=== PATIENT | male | born 1960 | race Caucasian/White ===

== ENCOUNTER → 2023-09-11 15:54 | Outpatient (REF) | payer OTHER, SELFPAY | LOC: RCS 15:54 | PROVIDERS: ATTENDING PHYSICIAN Internal Medicine Cardiovascular Disease; FAMILY PHYSICIAN Emergency Medicine | DX: I25.5 Ischemic cardiomyopathy (principal) | CPT/HCPCS: 93306 ==

== ENCOUNTER 2024-02-18 20:36 | Emergency (ER) | payer OTHER, SELFPAY ==
[2024-02-18 20:41] VITALS: BP 141/79
[2024-02-18 21:50] LABS: % Basophils 0.4 % (0-2); % Eosinophils 0.3 % (0-6); % Immature Granulocytes 0.3 % (0-0.5); % Lymphocytes 12.2 % (20.5-51.1); % Monocytes 8.4 % (1.7-9.3); % Neutrophils 78.4 % (42.2-75.2); Absolute Monocytes 0.7 10^3/uL (0.1-0.6); Absolute Neutrophils 6.2 10^3/uL (1.4-6.5); Hematocrit 33.1 % (39.0-52.0); Hemoglobin 10.7 g/dL (13.0-18.0); Mean Corp Hgb Conc. 32.3 g/dL (33.0-37.0); Mean Corpuscular Volume 83.6 fL (80.0-94.0); Mean Platelet Volume 9.5 fL (7.4-10.4); Nucleated Red Blood Cells % 0 % (-); Platelet Count 392 10^3/uL (130-400); Red Blood Cell Count 3.96 10^6/uL (4.70-6.10); Red Cell Dist. Width 13.8 % (11.5-14.5); White Blood Cell Count 7.9 10^3/uL (4.8-10.8)
[2024-02-18 21:58] LABS: ALT (SGPT) 73 U/L (0-50); AST (SGOT) 97 U/L (17-59); Albumin 3.3 g/dl (3.5-5.0); Alkaline Phosphatase 96 U/L (38-126); Blood Urea Nitrogen 14 mg/dl (9-20); Calcium 8.4 mg/dl (8.4-10.2); Carbon Dioxide 27 mmol/L (22-30); Chloride 97 mmol/L (98-107); Glucose 110 mg/dl (70-99); Potassium 4.3 mmol/L (3.5-5.1); Sodium 131 mmol/L (135-145); Total Bilirubin 0.3 mg/dl (0.2-1.3); Total Protein 6.6 g/dl (6.3-8.2); eGFR > 60.00
[2024-02-18 23:02] VITALS: BP 111/63
[2024-02-18 23:11] VITALS: BP 111/63
--- NOTE | 2024-02-18 23:12 | ED.GENMED ---
History of Present Illness
<Kristin Rios EQUALIZER OPERATOR - Last Filed: 02/18/24 23:16>
General
Chief Complaint: Fall
Source: patient and family
Exam Limitations: none
Time Seen by Provider: 02/18/24 20:54
Nursing documentation reviewed up to this point in time: agreed with
History of Present Illness
History of Present Illness:
Patient to ED for eval of chest pain, mass seen on xray. Sister-in law reports he fell last week and injured right lateral chest. Family took him to [facility] and xray reveals 'mass' in right lung. Family was advised by provider of need to
come to ED for urgent CT. He is awake and alert. Denies any difficulty breathing. Pain to right lateral chest with movement.
Past History
<Kristin Rios EQUALIZER OPERATOR - Last Filed: 02/18/24 23:16>
Past History
ED Past Medical History: CAD, HTN and Hypercholesterolemia
ED Past Surgical History: None
Social History
Tobacco: Smoker
Personal: Single
Employment: Not employed
Phy Exam
<Kristin Rios EQUALIZER OPERATOR - Last Filed: 02/18/24 23:16>
General Physical Exam
General Presentation: well appearing and no apparent distress
General age: appears stated age
General Skin: warm and dry
General Habitus: normal
General Mental: alert
General Hydration: appears well hydrated
Cardiovascular Exam
Cardiovascular Exam: regular rate/rhythm and no edema
Pulmonary Exam
Pulmonary Exam: no respiratory distress, chest non tender and decreased breath sounds
Cough: non productive cough
Gastrointestinal Exam
Gastrointestinal Exam: normal bowel sounds and non tender
Musculoskeletal Exam
Musculoskeletal Exam: full ROM and neuro vasc intact
Skin Exam
Skin Exam: normal color, warm/dry and no rash
Psychiatric Exam
Psychiatric Exam: normal mood/affect
Course
<Kristin Rios, EQUALIZER OPERATOR - Last Filed: 02/18/24 23:16>
Orders/Labs/Results
Orders:
Orders
02/18/24 21:33
Complete Blood Count/With Diff Urgent
Comprehensive Metabolic Panel Urgent
02/18/24 23:20
Pantoprazole [Protonix IV] 40 mg IV NOW STA
02/19/24 00:15
CT Chest W/o Iv Contrast Urgent
Reason For Exam: Trauma, mass seen on xray
Abnormal Lab Results
02/18/24
21:33
RBC 3.96 L 10^6/uL
(4.70-6.10)
Hgb 10.7 L g/dL
(13.0-18.0)
Hct 33.1 L %
(39.0-52.0)
MCHC 32.3 L g/dL
(33.0-37.0)
Absolute Lymphs (auto) 1.0 L 10^3/uL
(1.2-3.4)
Absolute Monos (auto) 0.7 H 10^3/uL
(0.1-0.6)
Neutrophils % 78.4 H %
(42.2-75.2)
Lymphocytes % 12.2 L %
(20.5-51.1)
Sodium 131 L mmol/L
(135-145)
Chloride 97 L mmol/L
(98-107)
Glucose 110 H mg/dl
(70-99)
AST 97 H U/L
(17-59)
ALT 73 H U/L
(0-50)
Albumin 3.3 L g/dl
(3.5-5.0)
02/18/24 21:33
02/18/24 21:33
Vital Signs
Initial and Last Documented VS:
Initial Vital Signs
Temp Pulse Resp BP Pulse Ox
98.2 F 94 20 141/79 99
02/18/24 20:41 02/18/24 20:41 02/18/24 20:41 02/18/24 20:41 02/18/24 20:41
Last Documented Vital Signs
Temp Pulse Resp BP Pulse Ox
98.2 F 94 20 116/69 98
02/18/24 20:41 02/18/24 20:41 02/18/24 20:41 02/19/24 00:11 02/19/24 00:15
<Lanre Love, DO - Last Filed: 02/19/24 01:01>
Orders/Labs/Results
Orders:
Orders
02/18/24 21:33
Complete Blood Count/With Diff Urgent
Comprehensive Metabolic Panel Urgent
02/18/24 23:20
Pantoprazole [Protonix IV] 40 mg IV NOW STA
02/19/24 00:15
CT Chest W/o Iv Contrast Urgent
Reason For Exam: Trauma, mass seen on UC xray
Abnormal Lab Results
02/18/24
21:33
RBC 3.96 L 10^6/uL
(4.70-6.10)
Hgb 10.7 L g/dL
(13.0-18.0)
Hct 33.1 L %
(39.0-52.0)
MCHC 32.3 L g/dL
(33.0-37.0)
Absolute Lymphs (auto) 1.0 L 10^3/uL
(1.2-3.4)
Absolute Monos (auto) 0.7 H 10^3/uL
(0.1-0.6)
Neutrophils % 78.4 H %
(42.2-75.2)
Lymphocytes % 12.2 L %
(20.5-51.1)
Sodium 131 L mmol/L
(135-145)
Chloride 97 L mmol/L
(98-107)
Glucose 110 H mg/dl
(70-99)
AST 97 H U/L
(17-59)
ALT 73 H U/L
(0-50)
Albumin 3.3 L g/dl
(3.5-5.0)
02/18/24 21:33
02/18/24 21:33
Vital Signs
Initial and Last Documented VS:
Initial Vital Signs
Temp Pulse Resp BP Pulse Ox
98.2 F 94 20 141/79 99
02/18/24 20:41 02/18/24 20:41 02/18/24 20:41 02/18/24 20:41 02/18/24 20:41
Last Documented Vital Signs
Temp Pulse Resp BP Pulse Ox
98.2 F 94 20 116/69 98
02/18/24 20:41 02/18/24 20:41 02/18/24 20:41 02/19/24 00:11 02/19/24 00:15
<Lanre Love DO - Last Filed: 02/19/24 01:01>
*Critical Care Note
Total Time (30-74mins, 75-104mins- exclusive of procedures): Not Applicable
ED Attending Note
<Kristin Rios NP - Last Filed: 02/18/24 23:16>
-
Portions of this chart may have been created with voice recognition software.� Occasional wrong word or��sound alike� substitutions may have occurred due to the inherent limitations of voice recognition software.
<Lanre Love DO - Last Filed: 02/19/24 01:01>
ED Attending Note
Patient seen and examined by attending physician: Yes
I performed the substantive portion of visit, reviewed & personally made and approve the management plan that is documented in note by myself or HELGA.: Yes
ED Attending Note:
Seen with EQUALIZER OPERATOR examined independently 64-year-old male long-term smoker sent from an urgent care for a lung mass, CT confirms a lung mass oxygenating well reviewed with patient and multiple family members will need outpatient follow-up
Discharge Plan
Departure
Patient Disposition: Home (Routine Discharge)
Date of Disposition: 02/19/24
Time of Disposition: 00:58
Patient with high blood pressure during this ER visit?: No
Condition: Good
Discharge Problem:
Mass in chest
Referrals:
Carrie Newsome MD [Family Provider] - Next open appointment
Joe Camejo MD [Active] - Next open appointment
Marquise Salvador DO [Active] - Next open appointment
Activity Restrictions/Additional Instructions:
Your CAT scan today showed a mass in your lung
Call Dr. Salvador from [facility] tomorrow to arrange follow-up with him or one of his associates
Interventions
Interventions:
*Risk Screen - Suicide Last Done: 02/18/24 22:18
*General Assessment Last Done: 02/18/24 20:41
*Neglect/Abuse Screening Last Done: 02/18/24 22:18
ED- Fall Risk Assessment Last Done: 02/18/24 22:18
*ED COVID-19 Vaccine History Last Done: 02/18/24 22:18
ED-Musculoskeletal Assessment Last Done: 02/18/24 22:18
ED- Neurological Assessment Last Done: 02/18/24 22:18
ED-Skin Assessment Last Done: 02/18/24 22:18
Discharge Date and Time
Print Language: DANISH
[2024-02-18] MEDS: PROTONIX IV 40 MG IV (23:26)
[2024-02-19 00:11] VITALS: BP 116/69
[2024-02-19 01:00] VITALS: BP 119/73
== END 2024-02-19 01:16 | disposition home or self-care (01) ==
LOC: EMR 20:36
PROVIDERS: Nurse Practitioner; EMERGENCY PHYSICIAN Emergency Medicine; FAMILY PHYSICIAN Emergency Medicine
DX: R91.8 Other nonspecific abnormal finding of lung field (principal); R07.89 Other chest pain; E78.00 Pure hypercholesterolemia, unspecified; I10 Essential (primary) hypertension; I25.10 Atherosclerotic heart disease of native coronary artery without angina pectoris; F17.200 Nicotine dependence, unspecified, uncomplicated
CPT/HCPCS: 96374; 99284; 71250; 80053; 85025

== ENCOUNTER 2024-03-07 06:07 | Day surgery (SDC) | payer OTHER, SELFPAY ==
[2024-03-07] VITALS (8 sets, daily range): BP systolic 83–116; BP diastolic 48–68; BMI 18.5
== END 2024-03-07 16:26 | disposition home or self-care (01) ==
LOC: SDS 06:07
PROVIDERS: ATTENDING PHYSICIAN Internal Medicine Critical Care Medicine
DX: C34.11 Malignant neoplasm of upper lobe, right bronchus or lung (principal); C77.1 Secondary and unspecified malignant neoplasm of intrathoracic lymph nodes; J98.4 Other disorders of lung; R93.89 Abnormal findings on diagnostic imaging of other specified body structures; J44.9 Chronic obstructive pulmonary disease, unspecified; J98.11 Atelectasis; R91.8 Other nonspecific abnormal finding of lung field
CPT/HCPCS: 31623; 31628; 31629; 31653; 31624; 31625; 31654; 88172; 88173; 88305; 71045; 87015; 87070; 87102; 87116; 87205; 88112; 88333; 88341; 88342

== ENCOUNTER 2024-03-17 15:39 | Emergency (ER) | payer OTHER, SELFPAY ==
[2024-03-17 15:59] VITALS: BP 139/87
--- NOTE | 2024-03-17 15:59 | ED.GENMED ---
ED Provider Triage
<Henrry Barajas Jr., PA-C - Last Filed: 03/17/24 15:59>
-
Patient seen by provider in Triage?: Seen in Triage
Attestation: A medical screening examination has been initiated by a qualified medical provider. Based on the assessment performed at this time, it has been determined that an emergent medical condition may exist and the patient has been informed
that further medical evaluation and possible additional diagnostic testing may be needed.
HPI: 64-year-old male presenting to the emergency department for labs. Recently diagnosed with lung cancer through pulmonary here. They are requesting outpatient labs they were having difficulty getting labs done as an outpatient today they were
told to go to the ER for the labs. The labs that were requested specifically were ordered here.
GENERAL: Alert , in no apparent distress
EYE: No visual abnormalities.
NECK: Trachea midline
ENT: No visible abnormalities.
LUNGS: No acute respiratory distress
NEUROLOGICAL: Alert and oriented
SKIN: Skin intact. No visible changes.
MUSCULOSKELETAL: Moving extremities normally
PSYCH: Normal and appropriate interaction.
This is a medical evaluation conducted in person to initiate diagnostic evaluation and provide initial therapeutics. Please see further documentation by the treating clinician.
History of Present Illness
<Henrry Barajas Jr., PA-C - Last Filed: 03/17/24 15:59>
General
Chief Complaint: Abnormal Lab Value
Time Seen by Provider: 03/17/24 16:14
<BETHANY Salas - Last Filed: 03/17/24 19:47>
General
Source: patient
Exam Limitations: none
Nursing documentation reviewed up to this point in time: agreed with
History of Present Illness
History of Present Illness:
Patient is a 64-year-old male here for outpatient labs. Patient is here with brother and [id number]. Patient has a recent diagnosis of lung cancer and has seen . He is scheduled for a PET scan March 24 and is seeing pulmonary again
this Sunday. Patient came to the ER because his insurance would not cover blood work done at [facility] and [facility] was closed. Family reports patient has been slightly tired which is why pulmonary ordered blood work. Patient has no
physical complaints here. Denies any shortness of breath or chest pain. He feels well to go home.
Past History
<Henrry Barajas Jr., PA-C - Last Filed: 03/17/24 15:59>
Past History
ED Past Medical History: CAD, HTN and Hypercholesterolemia
ED Past Surgical History: None
Social History
Tobacco: Smoker
Personal: Single
Employment: Not employed
Review of Systems
<BETHANY Salas - Last Filed: 03/17/24 19:47>
Review of Systems
Allergies reviewed?: Yes
All Other Systems: ROS reviewed and negative except as documented in HPI and ROS
Constitutional: Denies fever
Respiratory: Reports no symptoms; Denies trouble breathing
Cardiac: Reports no symptoms
ABD/GI: Reports no symptoms
: Reports no symptoms
Musculoskeletal: Reports no symptoms
Skin: Reports no symptoms
Neurological: Reports no symptoms
Psychiatric: Reports no symptoms
Phy Exam
<BETHANY Salas - Last Filed: 03/17/24 19:47>
General Physical Exam
General Presentation: no apparent distress
General age: appears stated age
General Skin: warm and dry
General Habitus: elderly
General Mental: alert
General Hydration: appears well hydrated
Cardiovascular Exam
Cardiovascular Exam: regular rate/rhythm, no murmur and normal peripheral pulses
Pulmonary Exam
Pulmonary Exam: lungs clear and no respiratory distress
Neurological Exam
Neurological Exam: alert
Musculoskeletal Exam
Musculoskeletal Exam: full ROM
Skin Exam
Skin Exam: normal color and warm/dry
Psychiatric Exam
Psychiatric Exam: normal mood/affect
Course
<Henrry Barajas Jr., PA-C - Last Filed: 03/17/24 15:59>
Orders/Labs/Results
Orders:
Orders
03/17/24 16:18
B12 [Vitamin B12] Urgent
CBC/With Diff [Complete Blood Count/With Diff] Urgent
CMP [Comprehensive Metabolic Panel] Urgent
Ferritin Urgent
Iron Urgent
TSH Reflex To Free T4 Urgent
Total Iron Binding Urgent
Abnormal Lab Results
03/17/24
16:18
RBC 4.38 L 10^6/uL
(4.70-6.10)
Hgb 11.7 L g/dL
(13.0-18.0)
Hct 36.6 L %
(39.0-52.0)
MCH 26.7 L pg
(27.0-31.0)
MCHC 32.0 L g/dL
(33.0-37.0)
RDW 15.4 H %
(11.5-14.5)
Plt Count 507 H 10^3/uL
(130-400)
Abs Immat Gran (auto) 0.1 H 10^3/uL
(0-0.05)
Absolute Neuts (auto) 8.5 H 10^3/uL
(1.4-6.5)
Absolute Lymphs (auto) 1.0 L 10^3/uL
(1.2-3.4)
Absolute Monos (auto) 0.7 H 10^3/uL
(0.1-0.6)
Neutrophils % 82.5 H %
(42.2-75.2)
Lymphocytes % 9.4 L %
(20.5-51.1)
Sodium 134 L mmol/L
(135-145)
Creatinine 0.6 L mg/dL
(0.7-1.3)
Iron 42 L ug/dl
(49-181)
% Saturation 14 L %
(20-50)
Ferritin 493.0 H ng/ml
(17.9-464.0)
03/17/24 16:18
03/17/24 16:18
Vital Signs
Initial and Last Documented VS:
Initial Vital Signs
Temp Pulse Resp BP Pulse Ox
97.8 F 102 20 139/87 98
03/17/24 15:59 03/17/24 15:59 03/17/24 15:59 03/17/24 15:59 03/17/24 15:59
Last Documented Vital Signs
Temp Pulse Resp BP Pulse Ox
97.8 F 102 20 139/87 98
03/17/24 15:59 03/17/24 15:59 03/17/24 15:59 03/17/24 15:59 03/17/24 15:59
<BETHANY Salas - Last Filed: 03/17/24 19:47>
Orders/Labs/Results
Orders:
Orders
03/17/24 16:18
B12 [Vitamin B12] Urgent
CBC/With Diff [Complete Blood Count/With Diff] Urgent
CMP [Comprehensive Metabolic Panel] Urgent
Ferritin Urgent
Iron Urgent
TSH Reflex To Free T4 Urgent
Total Iron Binding Urgent
Abnormal Lab Results
03/17/24
16:18
RBC 4.38 L 10^6/uL
(4.70-6.10)
Hgb 11.7 L g/dL
(13.0-18.0)
Hct 36.6 L %
(39.0-52.0)
MCH 26.7 L pg
(27.0-31.0)
MCHC 32.0 L g/dL
(33.0-37.0)
RDW 15.4 H %
(11.5-14.5)
Plt Count 507 H 10^3/uL
(130-400)
Abs Immat Gran (auto) 0.1 H 10^3/uL
(0-0.05)
Absolute Neuts (auto) 8.5 H 10^3/uL
(1.4-6.5)
Absolute Lymphs (auto) 1.0 L 10^3/uL
(1.2-3.4)
Absolute Monos (auto) 0.7 H 10^3/uL
(0.1-0.6)
Neutrophils % 82.5 H %
(42.2-75.2)
Lymphocytes % 9.4 L %
(20.5-51.1)
Sodium 134 L mmol/L
(135-145)
Creatinine 0.6 L mg/dL
(0.7-1.3)
Iron 42 L ug/dl
(49-181)
% Saturation 14 L %
(20-50)
Ferritin 493.0 H ng/ml
(17.9-464.0)
03/17/24 16:18
03/17/24 16:18
Vital Signs
Initial and Last Documented VS:
Initial Vital Signs
Temp Pulse Resp BP Pulse Ox
97.8 F 102 20 139/87 98
03/17/24 15:59 03/17/24 15:59 03/17/24 15:59 03/17/24 15:59 03/17/24 15:59
Last Documented Vital Signs
Temp Pulse Resp BP Pulse Ox
97.8 F 102 20 139/87 98
03/17/24 15:59 03/17/24 15:59 03/17/24 15:59 03/17/24 15:59 03/17/24 15:59
<BETHANY Salas - Last Filed: 03/17/24 19:47>
MDM/Problems Addressed
MDM/Problems Addressed:
Patient is stable for discharge home. A 64-year-old male who presented to the ER for blood work. He is followed by pulmonary for lung cancer and is scheduled to see them Sunday he is also a patient of [facility] here at [place]. He
is scheduled for his PET scan March 24 and scheduled to see this Sunday. He has no physical complaints. Blood work reviewed shows a hemoglobin which is stable 11.7 it was 10.9 on 02/17. His neutrophils have been slightly elevated and
they are slightly elevated here but unchanged. He denies any fevers his white count is normal at 10.2 his renal function is normal with no physical complaints stable for discharge home with outpatient follow-up with pulmonary and oncology.
I did notify his practice specialist about his labs.
<BETHANY Salas - Last Filed: 03/17/24 19:47>
*Pulse Oximetry
Patient hypoxic: no
*Critical Care Note
Total Time (30-74mins, 75-104mins- exclusive of procedures): Not Applicable
ED Attending Note
<Henrry Barajas Jr., PA-C - Last Filed: 03/17/24 15:59>
-
Portions of this chart may have been created with voice recognition software.� Occasional wrong word or��sound alike� substitutions may have occurred due to the inherent limitations of voice recognition software.
Discharge Plan
Departure
Patient Disposition: Home (Routine Discharge)
Date of Disposition: 03/17/24
Time of Disposition: 17:25
Patient with high blood pressure during this ER visit?: Yes
Discharge Problem:
encounter for blood work
Instructions: BLOOD PRESSURE
Prescriptions:
No Action
amitriptyline 50 mg Tablet
50 mg PO HS
atorvastatin
1 tab PO DAILY
gabapentin
1 tab PO BID
metoprolol succinate
1 tab PO DAILY
Low-Dose Aspirin 81 mg Tablet
81 mg PO DAILY
ibuprofen 800 mg Tablet
800 mg PO BID
Referrals:
Shahla Fontana MD [Active] -
Julianne Benjamin DO [Active] -
Activity Restrictions/Additional Instructions:
As discussed your labs were reviewed and there were no acute concerning abnormalities. Please continue to follow-up with pulmonary as well as oncology as scheduled. Return if any worsening of symptoms.
Interventions
Interventions:
*Risk Screen - Suicide Last Done: 03/17/24 17:47
*Neglect/Abuse Screening Last Done: 03/17/24 17:47
*ED COVID-19 Vaccine History Last Done: 03/17/24 15:59
*Nursing Disposition Last Done: 03/17/24 17:47
Discharge Date and Time
Discharge Date/Time: 03/17/24 17:47
Print Language: SLOVAK
[2024-03-17 16:38] LABS: % Basophils 0.3 % (0-2); % Eosinophils 0.7 % (0-6); % Immature Granulocytes 0.5 % (0-0.5); % Lymphocytes 9.4 % (20.5-51.1); % Monocytes 6.6 % (1.7-9.3); % Neutrophils 82.5 % (42.2-75.2); Absolute Eosinophils 0.1 10^3/uL (0-0.7); Absolute Immature Granulocytes 0.1 10^3/uL (0-0.05); Absolute Monocytes 0.7 10^3/uL (0.1-0.6); Absolute Neutrophils 8.5 10^3/uL (1.4-6.5); Hematocrit 36.6 % (39.0-52.0); Hemoglobin 11.7 g/dL (13.0-18.0); Mean Corpuscular Hgb 26.7 pg (27.0-31.0); Mean Corpuscular Volume 83.6 fL (80.0-94.0); Mean Platelet Volume 9.3 fL (7.4-10.4); Nucleated Red Blood Cells % 0 % (-); Platelet Count 507 10^3/uL (130-400); Red Blood Cell Count 4.38 10^6/uL (4.70-6.10); Red Cell Dist. Width 15.4 % (11.5-14.5); White Blood Cell Count 10.2 10^3/uL (4.8-10.8)
[2024-03-17 16:43] LABS: ALT (SGPT) 20 U/L (0-50); AST (SGOT) 29 U/L (17-59); Albumin 3.9 g/dl (3.5-5.0); Alkaline Phosphatase 113 U/L (38-126); Blood Urea Nitrogen 17 mg/dl (9-20); Carbon Dioxide 24 mmol/L (22-30); Chloride 99 mmol/L (98-107); Glucose 96 mg/dl (70-99); Iron 42 ug/dl (49-181); Potassium 4.9 mmol/L (3.5-5.1); Sodium 134 mmol/L (135-145); Total Bilirubin 0.5 mg/dl (0.2-1.3); Total Protein 7.4 g/dl (6.3-8.2); eGFR > 60.00
[2024-03-17 16:52] LABS: Percent Saturation 14 % (20-50); Total Iron Binding Capacity 291 ug/dl (261-462)
[2024-03-17 17:13] LABS: TSH Reflex To Free T4 2.24 uIU/ml (0.47-4.68)
[2024-03-17 17:32] LABS: Vitamin B12 399 pg/ml (239-931)
== END 2024-03-17 17:47 | disposition home or self-care (01) ==
LOC: EMR 15:39
PROVIDERS: Physician Assistant; EMERGENCY PHYSICIAN Emergency Medicine; FAMILY PHYSICIAN Emergency Medicine
DX: Z04.89 Encounter for examination and observation for other specified reasons (principal); C34.90 Malignant neoplasm of unspecified part of unspecified bronchus or lung; I25.10 Atherosclerotic heart disease of native coronary artery without angina pectoris; I10 Essential (primary) hypertension; E78.00 Pure hypercholesterolemia, unspecified; F17.200 Nicotine dependence, unspecified, uncomplicated
CPT/HCPCS: 99283; 80053; 82607; 82728; 83540; 83550; 84443; 85025

== ENCOUNTER → 2024-03-24 10:52 | Outpatient (REF) | payer OTHER, SELFPAY | LOC: PET 10:52 | PROVIDERS: ATTENDING PHYSICIAN Internal Medicine Hematology & Oncology | DX: C34.11 Malignant neoplasm of upper lobe, right bronchus or lung (principal) | CPT/HCPCS: 78815; A9552 ==

== ENCOUNTER 2024-03-26 21:30 | Emergency (ER) | payer OTHER, SELFPAY ==
[2024-03-26 21:30] VITALS: BMI 22.1
[2024-03-26 21:31] VITALS: BP 116/67
[2024-03-26 21:50] LABS: % Basophils 0.2 % (0-2); % Immature Granulocytes 0.6 % (0-0.5); % Lymphocytes 5.3 % (20.5-51.1); % Monocytes 8.2 % (1.7-9.3); % Neutrophils 85.7 % (42.2-75.2); Absolute Immature Granulocytes 0.1 10^3/uL (0-0.05); Absolute Lymphocytes 0.7 10^3/uL (1.2-3.4); Absolute Neutrophils 10.8 10^3/uL (1.4-6.5); Hematocrit 34.3 % (39.0-52.0); Hemoglobin 11.3 g/dL (13.0-18.0); Mean Corp Hgb Conc. 32.9 g/dL (33.0-37.0); Mean Corpuscular Hgb 26.5 pg (27.0-31.0); Mean Corpuscular Volume 80.5 fL (80.0-94.0); Mean Platelet Volume 8.8 fL (7.4-10.4); Nucleated Red Blood Cells % 0 % (-); Platelet Count 495 10^3/uL (130-400); Red Blood Cell Count 4.26 10^6/uL (4.70-6.10); White Blood Cell Count 12.5 10^3/uL (4.8-10.8)
[2024-03-26 22:04] LABS: ALT (SGPT) 29 U/L (0-50); AST (SGOT) 34 U/L (17-59); Albumin 3.6 g/dl (3.5-5.0); Alkaline Phosphatase 100 U/L (38-126); Blood Urea Nitrogen 12 mg/dl (9-20); Calcium 8.5 mg/dl (8.4-10.2); Carbon Dioxide 25 mmol/L (22-30); Chloride 98 mmol/L (98-107); Glucose 132 mg/dl (70-99); Potassium 4.4 mmol/L (3.5-5.1); Sodium 133 mmol/L (135-145); Total Bilirubin 0.8 mg/dl (0.2-1.3); Total Protein 7.2 g/dl (6.3-8.2); eGFR > 60.00
[2024-03-26 22:44] VITALS: BP 111/66
[2024-03-26 23:00] VITALS: BP 108/64
--- NOTE | 2024-03-26 23:44 | ED.GENMED ---
History of Present Illness
General
Chief Complaint: Abdominal Symptoms
Source: patient and family ([id number])
Exam Limitations: none
Time Seen by Provider: 03/26/24 22:52
History of Present Illness
History of Present Illness:
This is a 64 year old male that is brought in by family. States hat he just was not feeling well today. States that he is nauseated. Hienne-yc-mrg states that he was not good all day. States that he went to bed at 1opm last night and then did not
get up to 11am today. State that he was only up an hour and went to sleep in the chair all day. States that States that he was just diagnosed with Lung cancer about 2 weeks ago. Patient had a PET scan of the skull to the mid thigh on , States
that tomorrow he is going for an MRI of the brain and at 3:30 appointment with the Oncologist to make a plan. Patient state that he felt nauseated and does have some urinary burning. Denies any fever, chills, chest pain, SOB, abd pain, vomiting,
diarrhea, headache, dizziness.
Past History
Past History
ED Past Medical History: CAD, Cancer (Lung CA), COPD, HTN, Hypercholesterolemia, [place] (X 2) and Other (Back pain, 2 herniated disc, Anemia, )
ED Past Surgical History: Cardiac (Cardiac stent)
Social History
Tobacco: Former smoker
Drug: None
Personal: Single
Living: alone
Employment: Not employed
Review of Systems
Review of Systems
All Other Systems: ROS reviewed and negative except as documented in HPI and ROS
Constitutional: Reports chills; Denies fever
EENT: Reports no symptoms
Respiratory: Reports no symptoms; Denies cough or trouble breathing
Cardiac: Reports no symptoms; Denies chest pain
ABD/GI: Reports nausea; Denies abdominal pain, vomiting or diarrhea
: Reports dysuria, frequency and urgency
Musculoskeletal: Reports no symptoms
Skin: Reports no symptoms
Neurological: Reports no symptoms; Denies dizzy or headache
Psychiatric: Reports no symptoms
Phy Exam
General Physical Exam
General Presentation: no apparent distress
General age: appears stated age
General Skin: other (Clammy)
General Habitus: normal
General Mental: usual mental status
General Hydration: appears well hydrated
ENT Exam
ENT Exam: TM's normal, pharynx normal and neck supple
Eye Exam
Eye Exam: EOMI
Cardiovascular Exam
Cardiovascular Exam: regular rate/rhythm, no edema, no murmur and normal peripheral pulses
Pulmonary Exam
Pulmonary Exam: lungs clear, no respiratory distress, no rales, chest non tender, no crackles, no rhonchi, no wheezing and no cough
Gastrointestinal Exam
Gastrointestinal Exam: normal bowel sounds, non tender, soft, no organomegaly, no pulsatile mass and non distended
Musculoskeletal Exam
Musculoskeletal Exam: full ROM and no edema
Skin Exam
Skin Exam: normal color, warm/dry, no rash and no petechia
Course
Orders/Labs/Results
Orders:
Orders
03/26/24 21:40
Complete Blood Count/With Diff Urgent
Comprehensive Metabolic Panel Urgent
03/26/24 23:42
0.9% Sodium Chloride 1000 ml [Nss] 1,000 ml IV BOLUS
Ondansetron Injectable [Zofran] 4 mg IV NOW STA
03/26/24 23:45
COVID-19 Antigen Urgent
Source: Nasal Swab
Urinalysis Reflex To Culture Urgent
Date Specimen was Collected: 03/27/24
Time Specimen was Collected: 00:45
03/26/24 23:48
Troponin I Urgent
03/26/24 23:53
Electrocardiogram (*1) Urgent
Reason for Study: Fatigue / Weakness
EKG- Treatment ONCE
Abnormal Lab Results
03/26/24 03/27/24
21:40 00:52
WBC 12.5 H 10^3/uL
(4.8-10.8)
RBC 4.26 L 10^6/uL
(4.70-6.10)
Hgb 11.3 L g/dL
(13.0-18.0)
Hct 34.3 L %
(39.0-52.0)
MCH 26.5 L pg
(27.0-31.0)
MCHC 32.9 L g/dL
(33.0-37.0)
RDW 15.0 H %
(11.5-14.5)
Plt Count 495 H 10^3/uL
(130-400)
Abs Immat Gran (auto) 0.1 H 10^3/uL
(0-0.05)
Absolute Neuts (auto) 10.8 H 10^3/uL
(1.4-6.5)
Absolute Lymphs (auto) 0.7 L 10^3/uL
(1.2-3.4)
Absolute Monos (auto) 1.0 H 10^3/uL
(0.1-0.6)
Immature Gran % 0.6 H %
(0-0.5)
Neutrophils % 85.7 H %
(42.2-75.2)
Lymphocytes % 5.3 L %
(20.5-51.1)
Sodium 133 L mmol/L
(135-145)
Glucose 132 H mg/dl
(70-99)
Urine Ketones Trace A
(Negative)
Urine Urobilinogen 2+ A
(Neg - 1+)
03/26/24 21:40
03/26/24 21:40
Leukocytosis, H/H slghtly low, Thrombocytosis, Sodium slightly low. Hyperglycemia.
Vital Signs
Initial and Last Documented VS:
Initial Vital Signs
Temp Pulse Resp BP Pulse Ox
98.0 F 103 18 116/67 97
03/26/24 21:31 03/26/24 21:31 03/26/24 21:31 03/26/24 21:31 03/26/24 21:31
Last Documented Vital Signs
Temp Pulse Resp BP Pulse Ox
98.0 F 103 18 108/64 95
03/26/24 21:31 03/26/24 21:31 03/26/24 21:31 03/26/24 23:00 03/27/24 00:15
MDM/Problems Addressed
Differential Diagnosis Includes:
UTI, Viral syndrome
MDM/Problems Addressed:
This is a 64 year old male that is brought in by family c/o just not feeling well. States that he has slept a lot all day and was nauseated.
Will check abs, COVID, Give IV fluids and Zofran. Will also get urine
Back into see patient and family. Patient states that he is feeling a little better. Reviewed all findings. Will discharge patient home with prescription for Zofran. Patient to return with any concerns.
Chronic conditions affecting care: Cancer
Acute Exacerbation and/or Progression of Chronic Illness:
NA
*Pulse Oximetry
Patient hypoxic: no
*EKG
Interpreted by ED Provider?: Yes
Heart Rate: 88
Rate: normal
Rhythm: sinus
Clark: left axis deviation
Interval: normal interval
QRS Pattern: normal QRS
Ischemia: T-wave inversion (II, III, aVF, V3, V4, V5, V6)
*Customer Agent Interpretation
Rate: Customer Agent- N/A
*Critical Care Note
Total Time (30-74mins, 75-104mins- exclusive of procedures): Not Applicable
ED Attending Note
-
Portions of this chart may have been created with voice recognition software.� Occasional wrong word or��sound alike� substitutions may have occurred due to the inherent limitations of voice recognition software.
Discharge Plan
Departure
Patient Disposition: Home (Routine Discharge)
Date of Disposition: 03/27/24
Time of Disposition: 01:53
Patient with high blood pressure during this ER visit?: No
Condition: Good
Covid-19: Negative COVID-19
Discharge Problem:
Nausea alone
Instructions: Nausea and Vomiting, Adult (DC)
Prescriptions:
New
ondansetron 4 mg tablet,disintegrating
4 mg PO Q8H PRN (Reason: nausea and vomiting) Qty: 10 0RF
No Action
amitriptyline 50 mg Tablet
50 mg PO HS
atorvastatin
1 tab PO DAILY
gabapentin
1 tab PO BID
metoprolol succinate
1 tab PO DAILY
Low-Dose Aspirin 81 mg Tablet
81 mg PO DAILY
ibuprofen 800 mg Tablet
800 mg PO BID
Referrals:
Carrie Newsome MD [Family Provider] - Follow up in 2-3 days
Activity Restrictions/Additional Instructions:
As discussed, your blood work shows that your white blood cell count is slightly elevated. You are negative for COVID and your Urine is negative for infection. Please follow up with the Oncologist and your other testing as planed. Please increase
your water intake to 8-8oz glasses daily. A prescription for Zofran has been sent to your Pharmacy. IF YOU HAVE ANY OTHER CONCERNS PLEASE RETURN TO THE EMERGENCY ROOM
Interventions
Interventions:
*General Assessment Last Done: 03/26/24 21:31
*Neglect/Abuse Screening Last Done: 03/26/24 21:31
*ED COVID-19 Vaccine History Last Done: 03/26/24 21:31
DJ-Cflwet-Zkysggsiph Assessment Last Done: 03/26/24 23:11
Discharge Date and Time
Print Language: WELSH
[2024-03-27] MEDS: NSS 1000 IV (00:04)
[2024-03-27] MEDS: ZOFRAN 4 MG IV (00:11)
[2024-03-27 00:45] LABS: COVID-19 Antigen Negative (Negative)
[2024-03-27 00:49] LABS: Troponin I 0.014 ng/ml
[2024-03-27 01:00] VITALS: BP 110/69
[2024-03-27 01:29] LABS: Urine Albumin Trace (Neg - Trace); Urine Bilirubin Negative (Negative); Urine Character Clear (Clear); Urine Glucose Negative (Negative); Urine Ketone Trace (Negative); Urine Leukocyte Negative (Negative); Urine Nitrite Negative (Negative); Urine Occult Blood Negative (Negative); Urine Specific Gravity 1.015 (<1.030); Urine Urobilinogen 2+ (Neg - 1+)
[2024-03-27 01:30] LABS: Urine Color Amber
[2024-03-27 02:00] VITALS: BP 114/69
== END 2024-03-27 02:40 | disposition home or self-care (01) ==
LOC: EMR 21:30
PROVIDERS: Clinical Nurse Specialist Family Health; Emergency Medicine; EMERGENCY PHYSICIAN Emergency Medicine; FAMILY PHYSICIAN Emergency Medicine
DX: R11.0 Nausea (principal); C34.90 Malignant neoplasm of unspecified part of unspecified bronchus or lung; I25.10 Atherosclerotic heart disease of native coronary artery without angina pectoris; J44.9 Chronic obstructive pulmonary disease, unspecified; I10 Essential (primary) hypertension; E78.00 Pure hypercholesterolemia, unspecified; I25.2 Old myocardial infarction; Z87.891 Personal history of nicotine dependence; Z95.5 Presence of coronary angioplasty implant and graft
CPT/HCPCS: 99284; 96374; 96361; 80053; 81003; 84484; 85025; 87811; 93005

== ENCOUNTER → 2024-03-27 07:24 | Outpatient (REF) | payer OTHER, SELFPAY | LOC: MRI 3T 07:24 | PROVIDERS: ATTENDING PHYSICIAN Internal Medicine Critical Care Medicine; FAMILY PHYSICIAN Emergency Medicine | DX: C34.90 Malignant neoplasm of unspecified part of unspecified bronchus or lung (principal); R59.0 Localized enlarged lymph nodes | CPT/HCPCS: 70553; A9575 ==

== ENCOUNTER 2024-04-10 22:23 | Inpatient (IN) | payer OTHER, SELFPAY ==
[2024-04-10 17:03] VITALS: BMI 19.0
[2024-04-10 17:08] VITALS: BP 129/73
--- NOTE | 2024-04-10 17:13 | ED.GENMED ---
ED Provider Triage
<Cherry Callaway PA-C - Last Filed: 04/10/24 17:14>
-
Patient seen by provider in Triage?: Seen in Triage
Attestation: A medical screening examination has been initiated by a qualified medical provider. Based on the assessment performed at this time, it has been determined that an emergent medical condition may exist and the patient has been informed
that further medical evaluation and possible additional diagnostic testing may be needed.
HPI: 64yoM here with SOB and cough. Started with a rattling in his chest 2 days ago. Coughing up green mucous. Hx of recently diagnosed lung cancer, scheduled to start chemo/radiation next month. Sent in by pulmonology office.
GENERAL: Alert , in no apparent distress
EYE: No visual abnormalities.
NECK: Trachea midline
ENT: No visible abnormalities.
LUNGS: No acute respiratory distress
NEUROLOGICAL: Alert and oriented
SKIN: Skin intact. No visible changes.
MUSCULOSKELETAL: Moving extremities normally
PSYCH: Normal and appropriate interaction.
This is a medical evaluation conducted in person to initiate diagnostic evaluation and provide initial therapeutics. Please see further documentation by the treating clinician.
Cardiac labs, viral testing, EKG, and CXR ordered.
History of Present Illness
<Cherry Callaway PA-C - Last Filed: 04/10/24 17:14>
General
Chief Complaint: Breathing Problem
Time Seen by Provider: 04/10/24 19:55
<Kristin Rios NP - Last Filed: 04/10/24 23:01>
General
Source: patient and family
Exam Limitations: none
Nursing documentation reviewed up to this point in time: agreed with
History of Present Illness
History of Present Illness:
Patient to ED with complaint of increasing weakness, increasing SOB, increasing cough. + fever. Symptoms started 2 days ago.New diagnosis of lung CA. He has not started treatment yet. Today he was evaluated by pulmonology. Given neb treatemtn in
office with some improvement but SOB quickly returned. He felt that he needed to come to ED. Lives alone. Influenza A pos in triage today.
Past History
<Cherry Callaway PA-C - Last Filed: 04/10/24 17:14>
Past History
ED Past Medical History: CAD, Cancer (Lung CA), COPD, HTN, Hypercholesterolemia, ME (X 2) and Other (Back pain, 2 herniated disc, Anemia, )
ED Past Surgical History: Cardiac (Cardiac stent)
Social History
Tobacco: Former smoker
Drug: None
Personal: Single
Living: alone
Employment: Not employed
Review of Systems
<Kristin Rios NP - Last Filed: 04/10/24 23:01>
Review of Systems
Allergies reviewed?: Yes
All Other Systems: ROS reviewed and negative except as documented in HPI and ROS
Constitutional: Reports fever and fatigue
EENT: Reports no symptoms
Respiratory: Reports cough and trouble breathing
Cardiac: Reports no symptoms
ABD/GI: Reports nausea and anorexia
: Reports no symptoms
Musculoskeletal: Reports no symptoms
Skin: Reports no symptoms
Neurological: Reports weakness
Psychiatric: Reports no symptoms
Phy Exam
<Kristin Rios WALKING DRAGLINE OILER - Last Filed: 04/10/24 23:01>
General Physical Exam
General Presentation: mild distress
General age: appears older than age
General Skin: warm and dry
General Habitus: cachetic and frail
General Mental: alert
General Hydration: dry mucous membranes
Cardiovascular Exam
Cardiovascular Exam: regular rate/rhythm and no edema
Pulmonary Exam
Pulmonary Exam: decreased breath sounds
Cough: coarse cough and productive cough
Breath Sounds: Wheeze: generalized (expiratory)
Musculoskeletal Exam
Musculoskeletal Exam: full ROM and neuro vasc intact
Skin Exam
Skin Exam: normal color, warm/dry and no rash
Psychiatric Exam
Psychiatric Exam: normal mood/affect
Scores
<Kristin Rios NP - Last Filed: 04/10/24 23:01>
Heart Failure Risk
Heart Failure Risk Score: Not Applicable
Sepsis
<Kristin Rios NP - Last Filed: 04/10/24 23:01>
Sepsis Screening
Sepsis Assessment: Sepsis Ruled Out
Sepsis Screen
Sepsis Screen: Sepsis Ruled Out
Date: 04/10/24
Time: 23:01
Course
<Cherry Callaway PA-C - Last Filed: 04/10/24 17:14>
Orders/Labs/Results
Orders:
Orders
04/10/24 17:12
Electrocardiogram (*1) Urgent
Reason for Study: Shortness of Breath
EKG- Treatment ONCE
CR Chest - 2 Views Urgent
Comment:
Reason For Exam: SOB
04/10/24 17:36
COVID-19 Antigen Urgent
Source: Nasal Swab
Complete Blood Count/With Diff Urgent
Comprehensive Metabolic Panel Urgent
Ferritin Urgent
Comment: ADD ON
Folate Urgent
Comment: ADD ON
Iron Urgent
Comment: ADD ON
Total Iron Binding Urgent
Comment: ADD ON
Troponin I Urgent
Vitamin B12 Urgent
Comment: ADD ON
Influenza A+B Rapid Molecular Urgent
MARTITA Source: Nasal Swab
Specimen Description:
04/10/24 19:59
Acetaminophen [Tylenol] 650 mg PO NOW STA
04/10/24 20:06
0.9% Sodium Chloride 1000 ml [Nss] 1,000 ml IV BOLUS
Oseltamivir Phosphate [Tamiflu] 75 mg PO NOW STA
04/10/24 20:12
Dexamethasone Sod Phosphate [Decadron] 10 mg IV NOW STA
Levalbuterol [Xopenex 1.25 mg Inhalant Solution] 1.25 mg INH R NOW STA
04/10/24 21:22
Add On- LAB Stat
Tests Added?: iron, B12, ferritin, Foalte, TIBC
04/10/24 21:31
Admit/Transfer Patient As Directed
Co-Sign Provider:
Level of Care: Inpatient admission
Assign to:: Medical/Surgical
Physician / Group: jonh
Diagnosis: Influenza A
Reason for Hospitalization: influenza A
Expected length of stay greater than two midnights?: Yes
ELOS- Estimated Length of Stay in days: 3
I certify the patient meets the requirements for IP care: Yes
PRN Pain Medication Management As Directed
May give lesser potent ordered pain med per pt: Yes
preference::
Protocol:: Medication orders for pain may be administered in a
manner that supports deferring to patient preference
when the pt is:
- Requesting an ordered lesser potent pain medication.
Least to most potent pain medications are defined
as: acetaminophen < NSAID < tramadol < opioids
(morphine, oxycodone, hydromorphone).
- Requesting a lesser dose of the same medication IF
ORDERED.
- Requesting a less intrusive route of administration
if both routes are prescribed by the provider (PO <
IV).
04/10/24 21:32
Code Status As Directed
Resuscitation Status: Full Code
04/10/24 21:57
Procalcitonin Stat
PCT Algorithmm Indication: Respiratory
Abnormal Lab Results
04/10/24
17:36
RBC 4.12 L 10^6/uL
(4.70-6.10)
Hgb 10.5 L g/dL
(13.0-18.0)
Hct 32.3 L %
(39.0-52.0)
MCV 78.4 L fL
(80.0-94.0)
MCH 25.5 L pg
(27.0-31.0)
MCHC 32.5 L g/dL
(33.0-37.0)
RDW 15.7 H %
(11.5-14.5)
Plt Count 560 H 10^3/uL
(130-400)
Absolute Neuts (auto) 8.5 H 10^3/uL
(1.4-6.5)
Absolute Lymphs (auto) 0.4 L 10^3/uL
(1.2-3.4)
Absolute Monos (auto) 0.7 H 10^3/uL
(0.1-0.6)
Neutrophils % 87.4 H %
(42.2-75.2)
Lymphocytes % 4.5 L %
(20.5-51.1)
Sodium 131 L mmol/L
(135-145)
Chloride 96 L mmol/L
(98-107)
Glucose 116 H mg/dl
(70-99)
Iron 32 L ug/dl
(49-181)
TIBC 237 L ug/dl
(261-462)
% Saturation 13 L %
(20-50)
Ferritin 898.0 H ng/ml
(17.9-464.0)
ALT 53 H U/L
(0-50)
04/10/24 17:36
04/10/24 17:36
Vital Signs
Initial and Last Documented VS:
Initial Vital Signs
Temp Pulse Resp BP Pulse Ox
98.8 F 116 22 129/73 94
04/10/24 17:08 04/10/24 17:08 04/10/24 17:08 04/10/24 17:08 04/10/24 17:08
Last Documented Vital Signs
Temp Pulse Resp BP Pulse Ox
99.4 F 96 22 111/68 92
04/10/24 20:56 04/10/24 22:00 04/10/24 22:00 04/10/24 22:00 04/10/24 22:00
<Kristin Rios NP - Last Filed: 04/10/24 23:01>
Orders/Labs/Results
Orders:
Orders
04/10/24 17:12
Electrocardiogram (*1) Urgent
Reason for Study: Shortness of Breath
EKG- Treatment ONCE
CR Chest - 2 Views Urgent
Comment:
Reason For Exam: SOB
04/10/24 17:36
COVID-19 Antigen Urgent
Source: Nasal Swab
Complete Blood Count/With Diff Urgent
Comprehensive Metabolic Panel Urgent
Ferritin Urgent
Comment: ADD ON
Folate Urgent
Comment: ADD ON
Iron Urgent
Comment: ADD ON
Total Iron Binding Urgent
Comment: ADD ON
Troponin I Urgent
Vitamin B12 Urgent
Comment: ADD ON
Influenza A+B Rapid Molecular Urgent
MARTITA Source: Nasal Swab
Specimen Description:
04/10/24 19:59
Acetaminophen [Tylenol] 650 mg PO NOW STA
04/10/24 20:06
0.9% Sodium Chloride 1000 ml [Nss] 1,000 ml IV BOLUS
Oseltamivir Phosphate [Tamiflu] 75 mg PO NOW STA
04/10/24 20:12
Dexamethasone Sod Phosphate [Decadron] 10 mg IV NOW STA
Levalbuterol [Xopenex 1.25 mg Inhalant Solution] 1.25 mg INH R NOW STA
04/10/24 21:22
Add On- LAB Stat
Tests Added?: iron, B12, ferritin, Foalte, TIBC
04/10/24 21:31
Admit/Transfer Patient As Directed
Co-Sign Provider:
Level of Care: Inpatient admission
Assign to:: Medical/Surgical
Physician / Group: jonh
Diagnosis: Influenza A
Reason for Hospitalization: influenza A
Expected length of stay greater than two midnights?: Yes
ELOS- Estimated Length of Stay in days: 3
I certify the patient meets the requirements for IP care: Yes
PRN Pain Medication Management As Directed
May give lesser potent ordered pain med per pt: Yes
preference::
Protocol:: Medication orders for pain may be administered in a
manner that supports deferring to patient preference
when the pt is:
- Requesting an ordered lesser potent pain medication.
Least to most potent pain medications are defined
as: acetaminophen < NSAID < tramadol < opioids
(morphine, oxycodone, hydromorphone).
- Requesting a lesser dose of the same medication IF
ORDERED.
- Requesting a less intrusive route of administration
if both routes are prescribed by the provider (PO <
IV).
04/10/24 21:32
Code Status As Directed
Resuscitation Status: Full Code
04/10/24 21:57
Procalcitonin Stat
PCT Algorithmm Indication: Respiratory
Abnormal Lab Results
04/10/24
17:36
RBC 4.12 L 10^6/uL
(4.70-6.10)
Hgb 10.5 L g/dL
(13.0-18.0)
Hct 32.3 L %
(39.0-52.0)
MCV 78.4 L fL
(80.0-94.0)
MCH 25.5 L pg
(27.0-31.0)
MCHC 32.5 L g/dL
(33.0-37.0)
RDW 15.7 H %
(11.5-14.5)
Plt Count 560 H 10^3/uL
(130-400)
Absolute Neuts (auto) 8.5 H 10^3/uL
(1.4-6.5)
Absolute Lymphs (auto) 0.4 L 10^3/uL
(1.2-3.4)
Absolute Monos (auto) 0.7 H 10^3/uL
(0.1-0.6)
Neutrophils % 87.4 H %
(42.2-75.2)
Lymphocytes % 4.5 L %
(20.5-51.1)
Sodium 131 L mmol/L
(135-145)
Chloride 96 L mmol/L
(98-107)
Glucose 116 H mg/dl
(70-99)
Iron 32 L ug/dl
(49-181)
TIBC 237 L ug/dl
(261-462)
% Saturation 13 L %
(20-50)
Ferritin 898.0 H ng/ml
(17.9-464.0)
ALT 53 H U/L
(0-50)
04/10/24 17:36
04/10/24 17:36
Vital Signs
Initial and Last Documented VS:
Initial Vital Signs
Temp Pulse Resp BP Pulse Ox
98.8 F 116 22 129/73 94
04/10/24 17:08 04/10/24 17:08 04/10/24 17:08 04/10/24 17:08 04/10/24 17:08
Last Documented Vital Signs
Temp Pulse Resp BP Pulse Ox
99.4 F 96 22 111/68 92
04/10/24 20:56 04/10/24 22:00 04/10/24 22:00 04/10/24 22:00 04/10/24 22:00
<Kristin Rios NP - Last Filed: 04/10/24 23:01>
*Radiology
Radiology exam reviewed: radiology read reviewed
*Pulse Oximetry
Patient hypoxic: no
*Critical Care Note
Total Time (30-74mins, 75-104mins- exclusive of procedures): Not Applicable
<Kristin Rios NP - Last Filed: 04/10/24 23:01>
Update Note
Update Note:
Patient to ED from pulmonology office for SOB, cough, weakness. New lung CA diagnosis. Has not started treatment yet. He is influenza A pos. Tamiflu started in dept. Decreased breath sounds with expiratory wheezing noted. Given xopenex in
office today, will continue tonight. Given dose of IV decadron also. No evidence of pneumonia on CXR. He is weak, becomes dyspneic with minimal activity. Pulse ox 94% RA. Not eating or drinking. Will admit to hospitalists service. Patient is
agreeable to plan.
ED Attending Note
<Cherry Callaway PA-C - Last Filed: 04/10/24 17:14>
-
Portions of this chart may have been created with voice recognition software.� Occasional wrong word or��sound alike� substitutions may have occurred due to the inherent limitations of voice recognition software.
Discharge Plan
Departure
Patient Disposition: Admit
Date of Disposition: 04/10/24
Time of Disposition: 20:13
Presentation/result/management discussed w/ accepting MD/DO: Hospitalist
Patient with high blood pressure during this ER visit?: No
Condition: Fair
Covid-19: Negative COVID-19
Discharge Problem:
Influenza A, LOMAS (dyspnea on exertion), Weakness
Interventions
Interventions:
*Risk Screen - Suicide Last Done: 04/10/24 21:38
*Neglect/Abuse Screening Last Done: 04/10/24 19:44
ED- Fall Risk Assessment Last Done: 04/10/24 19:44
*ED COVID-19 Vaccine History Last Done: 04/10/24 17:08
ED- Cardiac Assessment Last Done: 04/10/24 20:11
ED- Pulmonary Assessment Last Done: 04/10/24 20:11
[2024-04-10 17:49] LABS: % Basophils 0.2 % (0-2); % Immature Granulocytes 0.4 % (0-0.5); % Lymphocytes 4.5 % (20.5-51.1); % Monocytes 7.5 % (1.7-9.3); % Neutrophils 87.4 % (42.2-75.2); Absolute Lymphocytes 0.4 10^3/uL (1.2-3.4); Absolute Monocytes 0.7 10^3/uL (0.1-0.6); Absolute Neutrophils 8.5 10^3/uL (1.4-6.5); Hematocrit 32.3 % (39.0-52.0); Hemoglobin 10.5 g/dL (13.0-18.0); Mean Corp Hgb Conc. 32.5 g/dL (33.0-37.0); Mean Corpuscular Hgb 25.5 pg (27.0-31.0); Mean Corpuscular Volume 78.4 fL (80.0-94.0); Nucleated Red Blood Cells % 0 % (-); Platelet Count 560 10^3/uL (130-400); Red Blood Cell Count 4.12 10^6/uL (4.70-6.10); Red Cell Dist. Width 15.7 % (11.5-14.5); White Blood Cell Count 9.7 10^3/uL (4.8-10.8)
[2024-04-10 18:04] LABS: ALT (SGPT) 53 U/L (0-50); AST (SGOT) 55 U/L (17-59); Albumin 3.6 g/dl (3.5-5.0); Alkaline Phosphatase 118 U/L (38-126); Blood Urea Nitrogen 18 mg/dl (9-20); Calcium 8.6 mg/dl (8.4-10.2); Carbon Dioxide 22 mmol/L (22-30); Chloride 96 mmol/L (98-107); Glucose 116 mg/dl (70-99); Potassium 4.4 mmol/L (3.5-5.1); Sodium 131 mmol/L (135-145); Total Bilirubin 0.7 mg/dl (0.2-1.3); Total Protein 7.3 g/dl (6.3-8.2); eGFR > 60.00
[2024-04-10 18:06] LABS: COVID-19 Antigen Negative (Negative)
[2024-04-10 18:15] LABS: Troponin I 0.026 ng/ml
[2024-04-10 19:49] VITALS: BP 129/70
[2024-04-10 20:00] VITALS: BP 131/67
[2024-04-10] MEDS: TYLENOL 650 MG PO (20:04)
[2024-04-10] MEDS: DECADRON 10 MG IV (20:44)
[2024-04-10] MEDS: XOPENEX 1.25 MG INHALANT SOLUTION INH (20:45)
[2024-04-10] MEDS: NSS 1000 IV (20:45)
[2024-04-10] MEDS: TAMIFLU 75 MG PO (20:45)
[2024-04-10 21:00] VITALS: BP 120/66
--- NOTE | 2024-04-10 21:03 | HPS.HSE ---
Family Physician
-
Family Physician: Carrie Newsome MD
Chief Complaint
-
sob
cough
History of Present Illness
64yoM with PMH for depression, [place], hyperlipidemia, cardiomyopathy, COPD, lung cancer, hypertension, anxiety coronary artery disease presented to us with cough with greenish sputum for past 2 to 3 days .he was very short of breath since yesterday
which is worse with exertion .he is also complaining of headache, fever chills . Denied any chest pain. Patient denied any abdominal pain, nausea, vomiting, diarrhea. Patient denied dysuria hematuria . Patient was recently diagnosed with lung
cancer, scheduled for treatment next month.
Patient received nebs in ER, Tamiflu in ER. Patient was tested positive for flu
Medical History
Past Medical History
Past Medical History: Reports Other
Additional Past Medical History:
Depression
Colon polyps
MRI
Degenerative disc disease
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
Lipidemia cyst
Hyperlipidemia
Right testicular pain ischemic cardiomyopathy
COPD
Hypertension
Anxiety
CVA
Hydrocele
Sacral dysfunction
CAD
Past Surgical History: Reports Other
Additional Past Surgical History:
Cardiac stent
Social History
Tobacco: Former Smoker
Alcohol: None
Drug: None
Living: With Family
Family History
Family History: Not pertinent
Allergies / Home Medications
Allergies reflects when Allergies were last updated in [facility].
Home Medications with original date entered in [facility]
Allergy/Medication List:
Allergies
Allergy/AdvReac Type Severity Reaction Status Date / Time
Iodinated Contrast Media Allergy Mild Hives Verified 04/10/24 17:14
onion Allergy Rash Verified 04/10/24 17:14
Home Medications
amitriptyline 50 mg tablet 50 mg PO HS 03/07/24
aspirin 81 mg tablet 81 mg PO DAILY 03/07/24
atorvastatin 1 tab PO DAILY 03/07/24
gabapentin 1 tab PO BID 03/07/24
ibuprofen 800 mg tablet 800 mg PO BID 03/07/24
metoprolol succinate 1 tab PO DAILY 03/07/24
ondansetron 4 mg disintegrating tablet 4 mg PO Q8H PRN nausea and vomiting #10 tabs 03/27/24
Review of Systems
-
Constitutional: Reports No Symptoms, Fever, Fatigue and Chills
EENT: Reports No Symptoms
Respiratory: Reports Cough and Trouble Breathing
Cardiac: Reports No Symptoms
Abdomen/GI: Reports No Symptoms
: Reports No Symptoms
Musculoskeletal: Reports No Symptoms
Skin: Reports No Symptoms
Neurological: Reports Headache and Weakness
Endocrine: Reports No Symptoms
Hematologic/Lymphatic: Reports No Symptoms
Psych: Reports No Symptoms
Physical Exam
Vital Signs
Vital Signs
Temp Pulse Resp BP Pulse Ox
99.4 F 97 22 131/67 94
04/10/24 20:56 04/10/24 20:45 04/10/24 20:45 04/10/24 20:00 04/10/24 20:15
Physical Exam
General: Well Developed, Well Nourished and No Apparent Distress
HEENT: NormoCephalic, Moist mucous membranes and Atraumatic
Respiratory: Wheezes
Cardiac: S1/S2 and Regular Rhythm; No Murmur or Rub
GI: Soft, Non Tender, Non Distended and Normal Bowel Sounds; No Organomegaly
Rectal: Deferred by Provider
Musculoskeletal: No Clubbing, No Cyanosis and No Edema
Skin: No Rash
Neuro: AO x 3 and Nonfocal/grossly intact
Psych: Calm
Laboratory Results
-
04/10/24 17:36
04/10/24 17:36
Laboratory Results
Total Bilirubin 0.7 mg/dl (0.2-1.3) 04/10/24 17:36
AST 55 U/L (17-59) 04/10/24 17:36
ALT 53 U/L (0-50) H 04/10/24 17:36
Alkaline Phosphatase 118 U/L (38-126) 04/10/24 17:36
Troponin I 0.026 ng/ml 04/10/24 17:36
Data Reviewed
-
Diagnostic Radiology: Report Reviewed by me
Lab Data: Labs Reviewed by me
Impression/Plan
-
# Dyspneic on exertion likely from Influenza A
-COVID negative
-chest x ray with the impression of large rounded density in the right hilar and suprahilar region, which likely represents lung cancer.Complete opacification right upper lobe, which is likely mainly due to postobstructive atelectasis. Correlating
with prior exams, and may also be a component of peripheral loculated pleural effusion.Subtle nodular parenchymal opacity within the right middle lobe and possibly within the right lower lobe, which may represent mild postobstructive pneumonitis.
-Tamiflu continued
-Tylenol as needed for fever or pain
# Possible COPD exacerbation
-Nebs as needed history of breath and wheezing
# Generalized weakness likely secondary to newly diagnosed lung cancer/influenza A
-PT/OT consulted
#hxt of lung ca
-scheduled for treatment as outpatient next month
#anemia likely iron deficiency
-obtain Iron panel, b12, ferritin, TIBC
-no acute bleeding
-ctm
# Hyponatremia likely dehydration
-NA 131
-normal saline
-BMP in am
# Coronary artery disease
# Cardiac stents
-Aspirin 81 daily continued
# Anxiety disorder
-amitriptyline continued
# Hyperlipidemia
-Statin continued
# Hypertension
-Metoprolol continued
# DVT prophylaxis
-Lovenox
# CODE STATUS
-Full code
-
--- NOTE | 2024-04-10 21:50 | W.PN.UPDATE ---
Update Note
Progress Note Update
Patient seen in conjunction with BETHANY. I agree with the findings on history and physical as well as the assessment and plan.
This is a six 4-year-old past medical history of hyperlipidemia, hypertension, former tobacco smoking quit last month, history of lung cancer that was diagnosed a month ago presents to the emergency department with 1 day history of productive cough
fevers chills and weakness. He was seen in clinic yesterday with some shortness of breath. He had a neb treatment without any significant improvement and was told to follow-up with the emergency department. Patient reports 1 sick contact with and
niece or nephew at home. He denied any chest pain. He was unable to tell me what I was having elevated temperatures at home. He does report having chills while I was discussing with him.
On examination the patient had clear lungs, no increased work of breathing with oxygen saturation of around 93% on room air.
Blood pressure was 131/67, temp was 99 pulse 97. Troponin was 0.02. Chest x-ray shows is formal diagnosis of lung cancer with known right upper lobe opacity. ECG was nonischemic. CBC was unremarkable. Chemistries BUN/creatinine were also
unremarkable. He had a positive influenza test. COVID test was negative.
Assessment and plan
1. Influenza A - started less than 72 hours ago, lung ca recent diagnosis but no current chemo.
- admit to med/surg
- tamiflu bid
- hold abx, check procal in am
- nebs, antipyretics and antitussives, supportive measures
- hold further steroids for now, no signficant wheezing
2. Hyponatremia - Mild, cannot r/o SIADH given lung ca
- IV fluids overnight and recheck
DVT PPX - lovenox sq
Code status - full code
[2024-04-10 22:00] VITALS: BP 111/68
[2024-04-10 22:14] LABS: Iron 32 ug/dl (49-181)
[2024-04-10 22:23] LABS: Percent Saturation 13 % (20-50); Total Iron Binding Capacity 237 ug/dl (261-462)
[2024-04-10 22:37] LABS: Procalcitonin 0.16 ng/ml (0.0-0.25)
[2024-04-10 23:00] VITALS: BP 120/74
[2024-04-10 23:23] LABS: Folate 10.8 ng/ml (2.76-20); Vitamin B12 361 pg/ml (239-931)
[2024-04-11] VITALS (13 sets, daily range): BP systolic 103–134; BP diastolic 62–93; PULSE 98–105; O2SAT 99; BMI 17.7
[2024-04-11] MEDS: ELAVIL 50 MG PO ×2 (01:20→22:50)
[2024-04-11] MEDS: NSS 1000 IV (01:24)
[2024-04-11 05:20] LABS: Hematocrit 32.3 % (39.0-52.0); Hemoglobin 10.6 g/dL (13.0-18.0); Mean Corp Hgb Conc. 32.8 g/dL (33.0-37.0); Mean Corpuscular Hgb 25.7 pg (27.0-31.0); Mean Corpuscular Volume 78.4 fL (80.0-94.0); Mean Platelet Volume 8.8 fL (7.4-10.4); Platelet Count 470 10^3/uL (130-400); Red Blood Cell Count 4.12 10^6/uL (4.70-6.10); Red Cell Dist. Width 15.6 % (11.5-14.5); White Blood Cell Count 7.3 10^3/uL (4.8-10.8)
[2024-04-11] MEDS: TOPROL XL 25 MG PO (10:34)
[2024-04-11] MEDS: ASPIR LOW (ENTERIC COATED) 81 MG PO (10:34)
[2024-04-11] MEDS: TAMIFLU 75 MG PO ×2 (10:34→21:36)
[2024-04-11] MEDS: NEURONTIN 400 MG PO ×3 (10:34→21:36)
[2024-04-11 10:56] LABS: Blood Urea Nitrogen 19 mg/dl (9-20); Calcium 7.7 mg/dl (8.4-10.2); Carbon Dioxide 20 mmol/L (22-30); Chloride 105 mmol/L (98-107); Estimated Creatinine Clearance 101 ml/min; Glucose 163 mg/dl (70-99); Potassium 4.3 mmol/L (3.5-5.1); Sodium 138 mmol/L (135-145); eGFR > 60.00
[2024-04-11] MEDS: LIPITOR 80 MG PO (12:10)
[2024-04-11] MEDS: DECADRON 6 MG IV ×2 (12:10→21:36)
--- NOTE | 2024-04-11 14:07 | W.PN.HOSP.TC ---
Today's Communication/Plan
-
Start patient on Decadron 6 every 12
Continue with bronchodilator
Started with B12 supplementation
Continue with Tamiflu
Assessment / Plan
Assessment / Plan
# Dyspneic on exertion likely from Influenza A and acute COPD exacerbation
-COVID negative
-chest x ray with the impression of large rounded density in the right hilar and suprahilar region, which likely represents lung cancer.Complete opacification right upper lobe, which is likely mainly due to postobstructive atelectasis. Correlating
with prior exams, and may also be a component of peripheral loculated pleural effusion.Subtle nodular parenchymal opacity within the right middle lobe and possibly within the right lower lobe, which may represent mild postobstructive pneumonitis.
-Tamiflu continued
-Tylenol as needed for fever or pain
# Acute COPD exacerbation
-Start patient on Decadron 6 mg every 12
-Bronchodilators.
-Patient with cough with productive sputum. Will start patient on doxycycline
# Generalized weakness likely secondary to newly diagnosed lung cancer/influenza A
-PT/OT consulted
#hxt of lung ca
-scheduled for treatment as outpatient next month
#anemia likely iron deficiency
-start b12 supplementation.
-ferritin increased due to acute inflammatory process
-no acute bleeding
-ctm
# Hyponatremia likely dehydration
-Resolved
# Coronary artery disease
# Cardiac stents
-Aspirin 81 daily continued
# Anxiety disorder
-amitriptyline continued
# Hyperlipidemia
-Statin continued
# Hypertension
-Metoprolol continued
# DVT prophylaxis
-Lovenox
# CODE STATUS
-Full code
Anticipated Discharge: > 48 hours
Subjective/Interval History
-
Date of Service: April 11, 2024
Sitting in chair
States feeling short of breath
Objective Data
-
Labs:
Laboratory Results
04/11/24 04/11/24
05:00 10:32
WBC 7.3
Hgb 10.6 L
Hct 32.3 L
Plt Count 470 H
Sodium 138
Potassium 4.3
Chloride 105
Carbon Dioxide 20 L
BUN 19
Creatinine 0.5 L
Glucose 163 H
Calcium 7.7 L
Vital Signs:
Vital Signs
Temp Pulse Resp BP Pulse Ox
98.4 F 94 22 106/93 96
04/11/24 12:05 04/11/24 12:00 04/11/24 12:00 04/11/24 11:55 04/11/24 12:05
I&O
04/10/24 04/11/24 04/12/24
06:59 06:59 06:59
Intake Total 400 / 400
Output Total 100 / 100 300 / 300
Balance 300 / 300 -300 / -300
Physical Exam
-
General: Well Developed and No Apparent Distress
HEENT: Normocephalic, Atraumatic and Moist Mucous Membranes
Respiratory: Wheezes
Cardiac: Regular Rhythm and S1/S2; Negative Murmur, Rub or Gallop
GI: Soft, Nontender, Nondistended and Normal Bowel Sounds; Negative Organomegaly
Rectal: Deferred by Provider
Musculoskeletal: No Clubbing, No Cyanosis and No Edema
Skin: Negative Rash
Neuro: Awake, Alert, Oriented, AO x 3, No Motor Deficits and Nonfocal/Grossly Intact
Psych: Calm
Data Reviewed
-
Total Time Spent with Patient (in minutes): 55
[2024-04-11] MEDS: VIBRAMYCIN 100 MG PO ×2 (15:12→21:36)
[2024-04-11] MEDS: NSS IV (16:52)
[2024-04-11] MEDS: LOVENOX 40 MG SC (17:56)
[2024-04-11] MEDS: DUONEB 3 ML INH (20:13)
[2024-04-12 06:58] LABS: Hemoglobin 10.3 g/dL (13.0-18.0); Mean Corp Hgb Conc. 31.2 g/dL (33.0-37.0); Mean Corpuscular Hgb 25.1 pg (27.0-31.0); Mean Corpuscular Volume 80.5 fL (80.0-94.0); Mean Platelet Volume 9.1 fL (7.4-10.4); Platelet Count 555 10^3/uL (130-400); Red Cell Dist. Width 15.8 % (11.5-14.5); White Blood Cell Count 11.8 10^3/uL (4.8-10.8)
[2024-04-12 07:15] VITALS: BP 113/72
[2024-04-12 07:35] LABS: Blood Urea Nitrogen 20 mg/dl (9-20); Calcium 8.4 mg/dl (8.4-10.2); Carbon Dioxide 23 mmol/L (22-30); Chloride 104 mmol/L (98-107); Estimated Creatinine Clearance 94 ml/min; Glucose 104 mg/dl (70-99); Potassium 4.8 mmol/L (3.5-5.1); Sodium 137 mmol/L (135-145); eGFR > 60.00
[2024-04-12] MEDS: DECADRON 6 MG IV ×2 (08:13→19:07)
[2024-04-12] MEDS: LIPITOR 80 MG PO (08:13)
[2024-04-12] MEDS: VITAMIN B-12 1000 MCG PO (08:13)
[2024-04-12] MEDS: VIBRAMYCIN 100 MG PO ×2 (08:13→19:08)
[2024-04-12] MEDS: TOPROL XL 25 MG PO (08:13)
[2024-04-12] MEDS: NEURONTIN 400 MG PO ×3 (08:13→21:54)
[2024-04-12] MEDS: ASPIR LOW (ENTERIC COATED) 81 MG PO (08:13)
[2024-04-12] MEDS: TAMIFLU 75 MG PO ×2 (08:13→19:09)
[2024-04-12] MEDS: DUONEB 3 ML INH ×4 (08:45→20:22)
[2024-04-12 10:20] VITALS: BP 112/70
[2024-04-12 11:20] VITALS: BP 112/70
--- NOTE | 2024-04-12 11:44 | W.PN.HOSP.TC ---
Today's Communication/Plan
-
IV decadron
tamiflu
bronchodilators
oob/pt
Assessment / Plan
Assessment / Plan
# Dyspneic on exertion likely from Influenza A and acute COPD exacerbation
-COVID negative
-chest x ray with the impression of large rounded density in the right hilar and suprahilar region, which likely represents lung cancer.Complete opacification right upper lobe, which is likely mainly due to postobstructive atelectasis. Correlating
with prior exams, and may also be a component of peripheral loculated pleural effusion.Subtle nodular parenchymal opacity within the right middle lobe and possibly within the right lower lobe, which may represent mild postobstructive pneumonitis.
-Tamiflu continued
-Tylenol as needed for fever or pain
# Acute COPD exacerbation
-Continue patient on Decadron 6 mg every 12
-Bronchodilators.
-Patient with cough with productive sputum. Will start patient on doxycycline-complete 5d course.
-
# Generalized weakness likely secondary to newly diagnosed lung cancer/influenza A
-PT/OT consulted
#hxt of lung ca
-scheduled for treatment as outpatient next month
#anemia likely iron deficiency
-start b12 supplementation.
-ferritin increased due to acute inflammatory process
-no acute bleeding
-ctm
# Hyponatremia likely dehydration
-Resolved
# Coronary artery disease
# Cardiac stents
-Aspirin 81 daily continued
# Anxiety disorder
-amitriptyline continued
# Hyperlipidemia
-Statin continued
# Hypertension
-Metoprolol continued
# DVT prophylaxis
-Lovenox
# CODE STATUS
-Full code
PT/OT -snf on dc.
Anticipated Discharge: > 48 hours
Subjective/Interval History
-
Date of Service: April 12, 2024
States breathing has improved
remains with productive cough
Objective Data
-
Labs:
Laboratory Results
04/12/24
05:39
WBC 11.8 H
Hgb 10.3 L
Hct 33.0 L
Plt Count 555 H
Sodium 137
Potassium 4.8
Chloride 104
Carbon Dioxide 23
BUN 20
Creatinine 0.6 L
Glucose 104 H
Calcium 8.4
Vital Signs:
Vital Signs
Temp Pulse Resp BP Pulse Ox
97.6 F 87 22 112/70 92
04/12/24 10:20 04/12/24 10:20 04/12/24 10:20 04/12/24 10:20 04/12/24 10:20
I&O
04/11/24 04/12/24 04/13/24
06:59 06:59 06:59
Intake Total 400 / 400 240 / 240 240 / 240
Output Total 100 / 100 825 / 825
Balance 300 / 300 -585 / -585 240 / 240
Physical Exam
-
General: Well Developed and No Apparent Distress
HEENT: Normocephalic, Atraumatic and Moist Mucous Membranes
Respiratory: Wheezes (mild improvement )
Cardiac: Regular Rhythm and S1/S2; Negative Murmur, Rub or Gallop
GI: Soft, Nontender, Nondistended and Normal Bowel Sounds; Negative Organomegaly
Rectal: Deferred by Provider
Musculoskeletal: No Clubbing, No Cyanosis and No Edema
Skin: Negative Rash
Neuro: Awake, Alert, Oriented, AO x 3, No Motor Deficits and Nonfocal/Grossly Intact
Psych: Calm
Data Reviewed
-
Total Time Spent with Patient (in minutes): 55
[2024-04-12 15:10] VITALS: BP 118/68
[2024-04-12] MEDS: LOVENOX 40 MG SC (17:32)
[2024-04-12] MEDS: TYLENOL 650 MG PO (17:45)
--- NOTE | 2024-04-12 18:37 | PTCARENOTE ---
patient transferred from [facility] at change of shift. pt oriented to room, has call ball within reach. pt has no concerns at this time
[2024-04-12 18:49] VITALS: BP 134/77
[2024-04-12] MEDS: ELAVIL 50 MG PO (21:54)
[2024-04-12] MEDS: LIDOCAINE 4% PATCH 1 PATCH TOPICAL (22:49)
[2024-04-12 22:50] VITALS: BP 118/77
[2024-04-13] MEDS: DUONEB 3 ML INH ×4 (07:10→21:24)
[2024-04-13 07:14] LABS: Hematocrit 29.9 % (39.0-52.0); Hemoglobin 9.6 g/dL (13.0-18.0); Mean Corp Hgb Conc. 32.1 g/dL (33.0-37.0); Mean Corpuscular Hgb 25.6 pg (27.0-31.0); Mean Corpuscular Volume 79.7 fL (80.0-94.0); Mean Platelet Volume 8.9 fL (7.4-10.4); Platelet Count 469 10^3/uL (130-400); Red Blood Cell Count 3.75 10^6/uL (4.70-6.10); Red Cell Dist. Width 15.6 % (11.5-14.5)
[2024-04-13 07:36] LABS: Blood Urea Nitrogen 18 mg/dl (9-20); Calcium 8.1 mg/dl (8.4-10.2); Carbon Dioxide 26 mmol/L (22-30); Chloride 101 mmol/L (98-107); Estimated Creatinine Clearance 94 ml/min; Glucose 97 mg/dl (70-99); Potassium 4.3 mmol/L (3.5-5.1); Sodium 135 mmol/L (135-145); eGFR > 60.00
[2024-04-13 07:43] VITALS: BP 120/76
[2024-04-13] MEDS: ASPIR LOW (ENTERIC COATED) 81 MG PO (08:12)
[2024-04-13] MEDS: TOPROL XL 25 MG PO (08:12)
[2024-04-13] MEDS: VIBRAMYCIN 100 MG PO ×2 (08:12→19:58)
[2024-04-13] MEDS: LIPITOR 80 MG PO (08:12)
[2024-04-13] MEDS: NEURONTIN 400 MG PO ×3 (08:12→21:40)
[2024-04-13] MEDS: VITAMIN B-12 1000 MCG PO (08:12)
[2024-04-13] MEDS: TAMIFLU 75 MG PO ×2 (08:12→19:58)
[2024-04-13] MEDS: DECADRON 6 MG IV ×2 (08:13→19:56)
--- NOTE | 2024-04-13 11:44 | W.PN.HOSP.TC ---
Addendum entered and electronically signed by Jamarcus Sweet MD 04/13/24 15:11:
Updated imaging patient's [id number] over the phone in details about oncologist discussion.
Briefly discussed case with patient oncologist Dr. Benjamin-would like to avoid delaying port placement as patient with advanced disease process. If patient discharged to SNF case management to coordinate to see if patient can be return for [facility]
outpatient port placement.
Original Note:
Today's Communication/Plan
-
cont with brochodilators
IV steroids
SNF on dc
ECHO in am
Assessment / Plan
Assessment / Plan
# Dyspneic on exertion likely from Influenza A and acute COPD exacerbation
-COVID negative
-chest x ray with the impression of large rounded density in the right hilar and suprahilar region, which likely represents lung cancer.Complete opacification right upper lobe, which is likely mainly due to postobstructive atelectasis. Correlating
with prior exams, and may also be a component of peripheral loculated pleural effusion.Subtle nodular parenchymal opacity within the right middle lobe and possibly within the right lower lobe, which may represent mild postobstructive pneumonitis.
-Tamiflu continued
-Tylenol as needed for fever or pain
-ECHO in am.
# Acute COPD exacerbation
#Tobacco abuse-quit smoking 3 weeks ago.
-Continue patient on Decadron 6 mg every 12-can deescalate in next 24h.
-Bronchodilators.
-Patient with cough with productive sputum. Will start patient on doxycycline-complete 5d course.
# Generalized weakness likely secondary to newly diagnosed lung cancer/influenza A
-PT/OT consulted
#hxt of lung ca
-scheduled for treatment as outpatient next month-Plan for port placement next week.
-family history of lung cancer.
-follows w/ Dr. Benjamin [facility].
#anemia likely iron deficiency
-start b12 supplementation.
-ferritin increased due to acute inflammatory process
-no acute bleeding
-ctm
# Hyponatremia likely dehydration
-Resolved
#Underweight
-dietary eval.
-recent wt loss per family ?due to malignancy.
# Coronary artery disease
# Cardiac stents
-Aspirin 81 daily continued
# Anxiety disorder
-amitriptyline continued
# Hyperlipidemia
-Statin continued
# Hypertension
-Metoprolol continued
# DVT prophylaxis
-Lovenox
# CODE STATUS
-Full code
PT/OT -snf on dc.
updated pt brother and sister in law over the phone in details.
Anticipated Discharge: > 48 hours
Subjective/Interval History
-
Date of Service: April 13, 2024
states improvement in breathing mildly
Objective Data
-
Labs:
Laboratory Results
04/13/24
06:38
WBC 13.0 H
Hgb 9.6 L
Hct 29.9 L
Plt Count 469 H
Sodium 135
Potassium 4.3
Chloride 101
Carbon Dioxide 26
BUN 18
Creatinine 0.6 L
Glucose 97
Calcium 8.1 L
Vital Signs:
Vital Signs
Temp Pulse Resp BP Pulse Ox
97.3 F 83 20 120/76 93
04/13/24 07:43 04/13/24 11:34 04/13/24 11:34 04/13/24 08:12 04/13/24 11:34
I&O
04/12/24 04/13/24 04/14/24
06:59 06:59 06:59
Intake Total 240 / 240 1140 / 1140
Output Total 825 / 825 950 / 950 225 / 225
Balance -585 / -585 190 / 190 -225 / -225
Physical Exam
-
General: No Apparent Distress and Cachectic
HEENT: Normocephalic, Atraumatic and Moist Mucous Membranes
Respiratory: Wheezes (improving-slowly)
Cardiac: Regular Rhythm and S1/S2; Negative Murmur, Rub or Gallop
GI: Soft, Nontender, Nondistended and Normal Bowel Sounds; Negative Organomegaly
Rectal: Deferred by Provider
Musculoskeletal: No Clubbing, No Cyanosis and No Edema
Skin: Negative Rash
Neuro: Awake, Alert, Oriented, AO x 3, No Motor Deficits and Nonfocal/Grossly Intact
Psych: Calm
Data Reviewed
-
Total Time Spent with Patient (in minutes): 55
--- NOTE | 2024-04-13 15:05 | CM ---
Addendum entered by Patti Keane 04/13/24 15:23:
Madelyn called CM back, stating oncology does not want to delay port placement, at this time, no date arranged for this.
CM will update accepting SNFs about possible need for transport for port placement.
Per Madelyn, she and spouse can provide the transport if needed for this.
Original Note:
CM following re: d/c planning.
Pt +flu.
CM completed IA with pt, he resides alone.
However, states his nephew lives 2 minutes away.
His brother and sister in law are local also and he spends a lot of time with them.
He states he has a cane and walker, is independent with ADLs and ambulation.
We discussed d/c planning i.e. SNF after hospitalization.
He states he believes he is improving, although he is not resistant to SNF.
He asks CM to contact his sister in law Madelyn.
Call placed to Madelyn, she states pt will be beginning chemo / radiation, and would like pt to get as strong as possible.
She is also concerned about his diet, as he seems to be losing weight.
She is agreeable to SNF placement. She would like a referral to [facility].
She agrees to local referrals in [place] and [place], and will provide additional choices.
Text sent with facility names and Medicare.gov link to PAC data.
CM continuing to follow for SNF placement.
[2024-04-13 15:53] VITALS: BP 120/71
[2024-04-13] MEDS: LOVENOX 40 MG SC (17:08)
[2024-04-13] MEDS: LIDOCAINE 4% PATCH 1 PATCH TOPICAL (19:58)
[2024-04-13] MEDS: ELAVIL 50 MG PO (21:40)
[2024-04-13] MEDS: TYLENOL 650 MG PO (21:43)
[2024-04-13 23:00] VITALS: BP 126/73
[2024-04-14] MEDS: DUONEB 3 ML INH ×4 (07:14→21:47)
[2024-04-14 07:52] VITALS: BP 128/75
--- NOTE | 2024-04-14 08:51 | W.PN.HOSP.TC ---
Today's Communication/Plan
-
maintain on steroids/tamiflu/abx
f/u TTE report
discharge planning for snf rehab
Assessment / Plan
Assessment / Plan
1. Exertional Dyspnea
-multifactorial from Influenza A infection / COPD flare up /RUL collapse from malignancy
-COVID negative
-chest x ray with the impression of large rounded density in the right hilar and suprahilar region, which likely represents lung cancer.Complete opacification right upper lobe, which is likely mainly due to postobstructive atelectasis. Correlating
with prior exams, and may also be a component of peripheral loculated pleural effusion.Subtle nodular parenchymal opacity within the right middle lobe and possibly within the right lower lobe, which may represent mild postobstructive pneumonitis.
-Tamiflu continued
-Tylenol as needed for fever or pain
-Will consider Pulm evaluation if symptoms not improved.
2. Acute COPD exacerbation
Tobacco abuse-quit smoking 3 weeks ago.
-Continue patient on Decadron 6 mg every 12 -can deescalate in next 24h.
-Bronchodilators.
3. Influenza A infection
- on Tamiflu course
- getting empiric doxycycline 5 days course
- resp sputum culture ordered
4. Generalized weakness likely secondary to newly diagnosed lung cancer/influenza A
-PT/OT recommended SNF rehab
5. Right upper lung undifferentiated carcinoma
-Pathology and Genetic testing results reviewed - undifferentiated carcinoma
-scheduled for treatment as outpatient next month-Plan for port placement next week.
-family history of lung cancer.
-follows w/ Dr. [facility].
6. Microcytic anemia
-start b12 supplementation.
-ferritin increased due to acute inflammatory process
-no acute bleeding
-ctm
# Hyponatremia likely dehydration
#Underweight -dietary eval. -recent wt loss per family ?due to malignancy.
# Coronary artery disease
# Cardiac stents
# Anxiety disorder
# Hyperlipidemia
# Hypertension
DVT prophylaxis-Lovenox
CODE STATUS -Full code
Anticipated Discharge: Within 24 hours
Subjective/Interval History
-
Date of Service: April 14, 2024
resting comfortably in bed
not on o2
complains of having cough, some shortness breath
afebrile in night
Objective Data
-
Labs:
Laboratory Results
04/14/24
08:36
WBC Pending
Hgb Pending
Hct Pending
Plt Count Pending
Sodium Pending
Potassium Pending
Chloride Pending
Carbon Dioxide Pending
BUN Pending
Creatinine Pending
Glucose Pending
Calcium Pending
Vital Signs:
Vital Signs
Temp Pulse Resp BP Pulse Ox
97.7 F 74 18 128/75 97
04/14/24 07:52 04/14/24 07:52 04/14/24 07:52 04/14/24 07:52 04/14/24 07:52
I&O
04/13/24 04/14/24 04/15/24
06:59 06:59 06:59
Intake Total 1140 / 1140 960 / 960 480 / 480
Output Total 950 / 950 1325 / 1325 300 / 300
Balance 190 / 190 -365 / -365 180 / 180
Review of Systems
-
Respiratory: Reports Cough and Trouble Breathing
Cardiac: Reports No Symptoms
Abdomen/GI: Reports No Symptoms
Physical Exam
-
General: Comfortable
HEENT: Negative Oxygen
Respiratory: Wheezes
Cardiac: Regular Rhythm and S1/S2; Negative Murmur or Rub
GI: Soft and Nontender
Musculoskeletal: No Edema
Neuro: Awake, Alert, Oriented, No Motor Deficits and Nonfocal/Grossly Intact
Psych: Calm
[2024-04-14 09:16] LABS: % Basophils 0.2 % (0-2); % Immature Granulocytes 0.9 % (0-0.5); % Lymphocytes 4.9 % (20.5-51.1); % Monocytes 3.4 % (1.7-9.3); % Neutrophils 90.6 % (42.2-75.2); Absolute Immature Granulocytes 0.1 10^3/uL (0-0.05); Absolute Lymphocytes 0.6 10^3/uL (1.2-3.4); Absolute Monocytes 0.4 10^3/uL (0.1-0.6); Absolute Neutrophils 11.1 10^3/uL (1.4-6.5); Hematocrit 31.7 % (39.0-52.0); Hemoglobin 10.1 g/dL (13.0-18.0); Mean Corp Hgb Conc. 31.9 g/dL (33.0-37.0); Mean Corpuscular Hgb 25.3 pg (27.0-31.0); Mean Corpuscular Volume 79.4 fL (80.0-94.0); Mean Platelet Volume 9.2 fL (7.4-10.4); Nucleated Red Blood Cells % 0 % (-); Platelet Count 475 10^3/uL (130-400); Red Blood Cell Count 3.99 10^6/uL (4.70-6.10); Red Cell Dist. Width 15.6 % (11.5-14.5); White Blood Cell Count 12.3 10^3/uL (4.8-10.8)
[2024-04-14 10:01] LABS: Blood Urea Nitrogen 17 mg/dl (9-20); Calcium 8.5 mg/dl (8.4-10.2); Carbon Dioxide 25 mmol/L (22-30); Chloride 100 mmol/L (98-107); Estimated Creatinine Clearance 81 ml/min; Glucose 85 mg/dl (70-99); Potassium 4.2 mmol/L (3.5-5.1); Sodium 134 mmol/L (135-145); eGFR > 60.00
[2024-04-14] MEDS: VITAMIN B-12 1000 MCG PO (11:07)
[2024-04-14] MEDS: NEURONTIN 400 MG PO ×3 (11:07→22:01)
[2024-04-14] MEDS: VIBRAMYCIN 100 MG PO ×2 (11:07→20:31)
[2024-04-14] MEDS: LIPITOR 80 MG PO (11:07)
[2024-04-14] MEDS: ASPIR LOW (ENTERIC COATED) 81 MG PO (11:07)
[2024-04-14] MEDS: TOPROL XL 25 MG PO (11:07)
[2024-04-14] MEDS: TAMIFLU 75 MG PO ×2 (11:07→20:31)
[2024-04-14] MEDS: DECADRON 6 MG IV ×2 (11:08→20:31)
--- NOTE | 2024-04-14 12:40 | PN.CDI ---
CDI
- -
CDI:
Physician Documentation Request
Admit Date: 04/10/24 22:23
Dear Doctor Farshad,
Please review the following and provide your response in the progress notes.
Clinical Indicators:
Pt admitted with Influenza A infection on empiric doxycycline / COPD exacerbation
On admission HR 116, Respirations 30
Please clarify which of the following most accurately describes the status of the patient's infection:
Viral Sepsis-POA
- Systemic manifestations of infection, with 2 or more SIRS criteria which include:
- Fever >100.4 degrees F or hypothermia < 96.8 degrees F
- Leukocytosis - WBC > 12,000 or leukopenia - WBC < 4,000 or > 10% bands
- Tachycardia > 90 beats per minute
- Tachypnea - RR > 20 breaths per minute or PaCO2 , 32mmHg
Source: Merck Manual 2013
Influenza A infection only , Without Systemic Illness
Other ( please specify)
Use of terms such as suspected, likely, concern for, or probable (associated with a specific diagnosis that is being evaluated, monitored, or treated as if it exists) are acceptable and can be coded in the inpatient setting, when documented at the
time of discharge.
Thank you,
Laya Mariee RN
CDI Specialist
[facility]
Please use your independent medical judgment in providing your response.
--- NOTE | 2024-04-14 13:23 | CM ---
Patient seen bedside.
Continues on IV steroids.
Await undated PT/OT notes.
Looking for skilled bed.
Patient influenza+ and multiple facilities needing between 5-7 days from onset to accept patient.
Plan: skilled rehab when bed available
--- NOTE | 2024-04-14 14:57 | CARDSERVLU ---
Echocardiogram with Lumason completed after protocol screening completed. Allergies verified.
Patent IV site: __Rt FA_
IV site flushed with 0.9% NaCl pre and post administration.
Diluted bolus method utilized to enhance visualization of ventricular ramirez.
Total volume given: __3.0__ mL
Patient tolerated all procedures well without complications.
[2024-04-14 15:26] VITALS: BP 145/81
[2024-04-14] MEDS: LOVENOX 40 MG SC (17:39)
[2024-04-14] MEDS: LIDOCAINE 4% PATCH 1 PATCH TOPICAL (20:30)
[2024-04-14] MEDS: ELAVIL 50 MG PO (22:02)
[2024-04-14] MEDS: TUMS CHEWABLE TABLET 200 MG PO (22:38)
[2024-04-14 22:55] VITALS: BP 140/78
[2024-04-14 23:55] VITALS: BP 131/79
[2024-04-15 07:00] LABS: Blood Urea Nitrogen 16 mg/dl (9-20); Calcium 8.3 mg/dl (8.4-10.2); Carbon Dioxide 26 mmol/L (22-30); Chloride 98 mmol/L (98-107); Estimated Creatinine Clearance 94 ml/min; Glucose 103 mg/dl (70-99); Potassium 4.5 mmol/L (3.5-5.1); Sodium 133 mmol/L (135-145); eGFR > 60.00
[2024-04-15] MEDS: DUONEB 3 ML INH ×4 (07:00→19:38)
[2024-04-15 07:35] VITALS: BP 119/74
[2024-04-15] MEDS: TYLENOL 650 MG PO ×2 (08:13→22:01)
[2024-04-15] MEDS: VIBRAMYCIN 100 MG PO ×2 (08:13→20:24)
[2024-04-15] MEDS: TOPROL XL 25 MG PO (08:13)
[2024-04-15] MEDS: LIPITOR 80 MG PO (08:13)
[2024-04-15] MEDS: TAMIFLU 75 MG PO ×2 (08:13→20:24)
[2024-04-15] MEDS: NEURONTIN 400 MG PO ×3 (08:13→22:01)
[2024-04-15] MEDS: ASPIR LOW (ENTERIC COATED) 81 MG PO (08:13)
[2024-04-15] MEDS: DECADRON 6 MG IV ×2 (08:14→20:24)
[2024-04-15 09:31] VITALS: BP 139/81
[2024-04-15] MEDS: VITAMIN B-12 PO (10:15)
[2024-04-15 11:52] VITALS: BP 143/83; O2SAT 96
--- NOTE | 2024-04-15 13:08 | CON.PUL ---
Consultation
Consultation Request
Date/Time Consultation Requested: 04/15/2024 - 120
Date/Time Consultation Performed: 04/15/2024 - 2
Requesting Provider: Dr. Yen
Performing Provider: Dr. Whitaker
Reason for Consultation: SOB
Medical History
-
Chief Complaint: SOB
History of Present Illness:
64-year-old male with newly diagnosed right upper lobe NSCLC, COPD, CAD, former tobacco use disorder, hyperlipidemia, depression, hypertension, history of autism and lumbar radiculopathy who presents with shortness of breath and cough. Patient
follows with us in the office with Dr. Fontana, last visit on 03/21/2024. He did see BETHANY Pat on 04/10/2024 due to worsening shortness of breath and cough. He went to the ER for further management. He has been having worsening cough with
green phlegm for the past 2-3 days. Also has headache, fevers and chills. Flu swab was positive for influenza A. Tamiflu started and so was Decadron given his history of COPD. He has continued to have significant shortness of breath that has not
been improving, so now pulmonary service consulted for additional management/recommendations.
When I saw the patient he was resting in bed in no acute distress on room air. I spoke with his frwdhu-fq-ian, Madelyn, over the phone and answered all her questions. There are multiple family members that have been recently diagnosed with the flu
including his niece. He believes that his nieces who he got the flu from. He says he has been short of breath for about a week but feels okay at rest. He is awaiting to start chemotherapy for his newly diagnosed RUL cancer. He currently denies
chest pain, ALMEIDA, nausea, fevers or chills.
PMHx: Malignant neoplasm of right upper lobe, COPD, CAD, former tobacco use disorder, hyperlipidemia, depression, hypertension, anxiety, lumbar radiculopathy, history of autism
PSHx: Coronary stent ([address] [facility])
Past Medical History
Past Medical History: Other (Above as per HPI)
Past Surgical History: Other (Above as per HPI)
Social History
Tobacco: Former Smoker (89-dqht-dpsd history, quit 03/18/2024)
Alcohol: None
Drug: None
Living: Other (Lives in a special needs home)
Family History
Family History: CAD (Father), Cancer (Mother: Ovarian/cervical cancer; Brother: Lung cancer) and Other (Brother: Sarcoidosis; Sister: Alcoholic; Brother: MVA)
Allergies / Home Medications
Allergies
Allergy/AdvReac Type Severity Reaction Status Date / Time
Iodinated Contrast Media Allergy Mild Hives Verified 04/10/24 17:14
onion Allergy Rash Verified 04/10/24 17:14
Home Medications
�Medication �Instructions �Recorded �Confirmed �Last Taken �Type
amitriptyline 50 mg tablet 50 mg PO HS Mental Health 03/07/24 04/11/24 03/06/24 20:00 History
atorvastatin 80 mg tablet (Lipitor) 80 mg PO HS High Cholesterol 03/07/24 04/11/24 03/06/24 20:00 History
gabapentin 400 mg tablet 400 mg PO TID Pain 03/07/24 04/11/24 03/06/24 20:00 History
metoprolol succinate 25 mg 25 mg PO DAILY Blood Pressure 03/07/24 04/11/24 03/07/24 09:30 History
tablet,extended release 24 hr
(Toprol XL)
aspirin 81 mg tablet,delayed 81 mg PO DAILY Blood Clot 04/11/24 04/11/24 Unknown History
release Prevention/Tx
levalbuterol HCl 1.25 mg/3 mL 1.25 mg inhalation R Q6HPRN PRN sob 04/11/24 04/11/24 Unknown History
solution for nebulization
phenolphthalein, yellow 90 mg 90 mg PO DAILYPRN PRN constipation 04/11/24 04/11/24 Unknown History
chewable tablet
umeclidinium 62.5 mcg-vilanterol 1 inh inhalation R DAILY 04/11/24 04/11/24 Unknown History
25 mcg/actuation powdr for Lung/Breathing Issues
inhalation (Anoro Ellipta)
Review of Systems
-
History Source: Patient
All other systems: Negative unless noted
Vitals / Labs / Diagnostic Testing
Vital Signs
Temp Pulse Resp BP Pulse Ox
97.3 F 80 14 119/74 94
04/15/24 07:35 04/15/24 15:00 04/15/24 15:00 04/15/24 07:35 04/15/24 07:35
Lab Data
04/14/24 08:36
04/15/24 06:05
Diagnostic Testing:
Physical Exam
-
HEENT: Normocephalic and Anicteric
Cardiovascular: S1/S2 and Peripheral Edema (negative)
Respiratory: Wheeze (negative), Rales (Right middle to upper lung field), Rhonchi (negative), Non-Labored Respirations and Other (Diminished breath sounds in the right apex)
GI: Soft, Non Distended, Non Tender and Normal Bowel Sounds
Neurology: AO x 3 and Tremors (negative)
Skin: Warm and Dry
General: Respiratory Distress (negative), Comfortable, Fever (negative) and Chills (negative)
Assessment
-
Assessment: 64-year-old male with newly diagnosed right upper lobe NSCLC, COPD, CAD, former tobacco use disorder, hyperlipidemia, depression, hypertension, history of autism and lumbar radiculopathy who presents with shortness of breath and cough.
Patient follows with us in the office with Dr. Fontana, last visit on 03/21/2024. He did see BETHANY Pat on 04/10/2024 due to worsening shortness of breath and cough. He went to the ER for further management. He has been having worsening
cough with green phlegm for the past 2-3 days. Also has headache, fevers and chills. Flu swab was positive for influenza A. Tamiflu started and so was Decadron given his history of COPD. He has continued to have significant shortness of breath
that has not been improving, so now pulmonary service consulted for additional management/recommendations.
Chronic conditions SENIOR REVENUE ACCOUNTANT: Malignant neoplasm of right upper lobe, COPD, CAD, former tobacco use disorder, hyperlipidemia, depression, hypertension, anxiety, lumbar radiculopathy, history of autism
Impression:
#SOB with acute hypoxic respiratory failure due to influenza A in the setting of COPD and newly diagnosed RUL carcinoma with significant right upper lobe atelectasis
#Influenza A pneumonia
#Leukocytosis � likely steroid-induced
#Chronic anemia
#Thrombocytosis likely reactive
#Hyponatremia
#RUL poorly differentiated/undifferentiated carcinoma (diagnosed via EBUS-bronchoscopy on 03/07/2024)
#Moderate COPD with borderline significant bronchodilator response with mild�moderate restrictive lung defect and moderately reduced gas exchange capacity which is normal when accounting for alveolar volume involved in gas exchange (via PFTs from
03/21/2024)
#Former tobacco use disorder (68-hmvy-yxee history, quit 03/18/2024)
#History of CAD s/p stent
#Depression/anxiety
#History of autism
#History of lumbar radiculopathy
Plan:
- Patient has significant right upper lobe atelectasis with almost complete right upper lobe mainstem bronchus narrowing due to cancer
- This is a large contributor to his SOB, on top of his newly diagnosed influenza A and in the setting of moderate COPD/centrilobular emphysema and mild-moderate restrictive lung defect
- Continue tamiflu; also on Doxy (started 04/11) for possible RUL post-obstructive PNA with possible disease in RML/RLL as well - would give total of 5-7 days of doxy and then stop
- Continue DuoNebs QID with prn Duonebs for breakthrough symptoms - not currently bronchospastic
- Resume Anoro Ellipta + prn Xopenex upon discharge
- Maintain SpO2 88-95% with supplemental O2 as needed
- Recommend to check ambulatory pulse oximetry prior to discharge
- Continue with Decadron and wean as he clinically improves, currently on 6 mg IV q12hr; eventual prednisone taper
- Maintain euglycemia while on systemic steroids with goal BG >100 and <180
- Incentive spirometer encouraged q1hr while awake
- Mucolytics as needed
- Trend sNa with goal 135-145
- Replete electrolytes with K>4, Mg>2
- Trend H/H and transfuse if needed to keep Hb>7g/dL; keep plt>20k, unless there is concern for bleeding then keep plt>50k
- PT/OT --> awaiting skilled rehab
- He is awaiting to start treatment for his right upper lobe carcinoma, follow-up with Oncology as an outpatient
- DVT ppx: LMWH
Pulmonary service will continue to follow along. Will arrange for outpatient pulmonary office follow-up with Dr. Fontana following discharge. Next appointment on 06/18/2024 at 3 PM, and this will be moved up.
Data:
CXR 04/10/2024:
Large rounded density in the right hilar and suprahilar region, which likely represents lung cancer.
Complete opacification right upper lobe, which is likely mainly due to postobstructive atelectasis. Correlating with prior exams, and may also be a component of peripheral loculated pleural effusion.
Subtle nodular parenchymal opacity within the right middle lobe and possibly within the right lower lobe, which may represent mild postobstructive pneumonitis.
Total time spent today was 58 minutes for this encounter. Time includes reviewing laboratory test/imaging results, reviewing pertinent medical records, obtaining and reviewing medical history, performing an appropriate exam, ordering medications,
tests and procedures. Time also includes documentation of this encounter, coordinating patient care and communicating with other healthcare professionals. Total time does not include separately billed tests performed on this date of service.
--- NOTE | 2024-04-15 13:25 | W.PN.HOSP.TC ---
Today's Communication/Plan
-
pulmo evaluation
Assessment / Plan
Assessment / Plan
1. Exertional Dyspnea
-multifactorial from Influenza A infection / COPD flare up /RUL collapse from malignancy
-COVID negative
-chest x ray with the impression of large rounded density in the right hilar and suprahilar region, which likely represents lung cancer.Complete opacification right upper lobe, which is likely mainly due to postobstructive atelectasis. Correlating
with prior exams, and may also be a component of peripheral loculated pleural effusion.Subtle nodular parenchymal opacity within the right middle lobe and possibly within the right lower lobe, which may represent mild postobstructive pneumonitis.
-Tamiflu continued
-Tylenol as needed for fever or pain
-Echocardiogram showing EF of 55 to 60%. No major valvulopathy
-Patient continued to have significant dyspnea on exertion. Pulmonology evaluation requested.
2. Acute COPD exacerbation
Tobacco abuse-quit smoking 3 weeks ago.
-Continue patient on Decadron 6 mg every 12 -can deescalate in next 24h.
-Bronchodilators.
3. Influenza A infection
- on Tamiflu course
- getting empiric doxycycline 5 days course
- resp sputum culture ordered
4. Generalized weakness likely secondary to newly diagnosed lung cancer/influenza A
-PT/OT recommended SNF rehab
5. Right upper lung undifferentiated carcinoma
-Pathology and Genetic testing results reviewed - undifferentiated carcinoma
-scheduled for treatment as outpatient next month-Plan for port placement next week.
-family history of lung cancer.
-follows w/ [facility].
6. Microcytic anemia
-start b12 supplementation.
-ferritin increased due to acute inflammatory process
-no acute bleeding
-ctm
# Hyponatremia likely dehydration
#Underweight -dietary eval. -recent wt loss per family ?due to malignancy.
# Coronary artery disease
# Cardiac stents
# Anxiety disorder
# Hyperlipidemia
# Hypertension
DVT prophylaxis-Lovenox
CODE STATUS -Full code
Anticipated Discharge: Within 24 hours
Subjective/Interval History
-
Date of Service: April 15, 2024
Short of breath on exertion
Not hypoxic
No other reported problem
Objective Data
-
Labs:
Laboratory Results
04/15/24
06:05
Sodium 133 L
Potassium 4.5
Chloride 98
Carbon Dioxide 26
BUN 16
Creatinine 0.6 L
Glucose 103 H
Calcium 8.3 L
Vital Signs:
Vital Signs
Temp Pulse Resp BP Pulse Ox
97.3 F 85 18 119/74 94
04/15/24 07:35 04/15/24 11:32 04/15/24 11:32 04/15/24 07:35 04/15/24 07:35
I&O
04/14/24 04/15/24 04/16/24
06:59 06:59 06:59
Intake Total 960 / 960 1400 / 1400
Output Total 1325 / 1325 2600 / 2600
Balance -365 / -365 -1200 / -1200
Review of Systems
-
Respiratory: Reports Trouble Breathing (exertional in nature)
Cardiac: Reports No Symptoms
Abdomen/GI: Reports No Symptoms
Physical Exam
-
General: Comfortable
HEENT: Negative Oxygen
Respiratory: Wheezes
Cardiac: Regular Rhythm and S1/S2; Negative Murmur or Rub
GI: Soft and Nontender
Musculoskeletal: No Edema
Neuro: Awake, Alert, Oriented, No Motor Deficits and Nonfocal/Grossly Intact
Psych: Calm
--- NOTE | 2024-04-15 15:06 | CM ---
CM reviewed pt with Dr Yen- STACY tomorrow
Only accepting SNF at this time is [facility], denied by majority of SNFs due to no beds or insurance
Last day of Tamiflu tomorrow
Bedside meeting with pt who deferred dispo planning to [facility]AB[facility]
She will tour [facility] this evening
Referral to [facility] per her request and referral denied by SNF
Discussion with Coty/Rosanne [phone]
Will reconsider referral on day-8 post positive flu test (Thrs 2/)
PT/OT continue to recommend SNF but functional improvements are noted
Pt will require [facility] [address] [place] [address] for SNF auth
Pt remains on precautions for flu
Discharge Disposition- SNF pending auth
[2024-04-15 15:30] VITALS: BP 122/74
[2024-04-15] MEDS: LOVENOX 40 MG SC (17:12)
[2024-04-15] MEDS: VITAMIN B-12 1000 MCG PO (17:12)
[2024-04-15] MEDS: LIDOCAINE 4% PATCH 1 PATCH TOPICAL (20:24)
[2024-04-15] MEDS: TUMS CHEWABLE TABLET 200 MG PO (22:01)
[2024-04-15] MEDS: ELAVIL 50 MG PO (22:01)
[2024-04-15 23:55] VITALS: BP 131/79
[2024-04-16] MEDS: TUMS CHEWABLE TABLET 200 MG PO (05:21)
--- NOTE | 2024-04-16 06:50 | CON.ONC ---
Impression
Impression
Acute COPD exacerbation
Influenza A infection
Stage IIIb NSCLC (cT4cN2) - chemoXRT about to start
Plan
Plan
Patient with stage IIIb lung cancer, COPD, multiple decades smoker, flu are all contributing to his dyspnea which seems to be improving (he states subjectively this morning).
He tells me that he is responding to mininebs.
Appreciate pulmonary input to optimize his respiratory status.
He will likely be able to start chemoradiation soon. I suspect that the influenza tipped him over and lead to his COPD exacerbation.
He was scheduled for follow-up with Dr. Benjmain today. This will need to be rescheduled to probably around next week.
We will follow intermittently. Anticipate when he is discharged he can schedule follow-up.
Patient History
History of Present Illness
Chief Complaint: SOB
Oncology team: Cassidy/Malena
History of Present Illness:
64-year-old male with recently diagnosed stage IIIb (cT4cN2) right upper lobe NSCLC presented to with shortness of breath and cough productive of greenish sputum associated with headache, fevers and chills. Flu swab was positive for influenza A.
Tamiflu started and so was Decadron given his history of COPD. He seems to say he is feeling better with the assistance of a nebulizer. Consulted for lung cancer management.
Past-Medical/Surgical History
PMH: stage IIIb (cT4cN2) right upper lobe NSCLC, COPD, CAD, former tobacco use disorder, hyperlipidemia, depression, hypertension, history of autism and lumbar radiculopathy
PSHx: Coronary stent (2017 at [facility])
SH:
Tobacco: Former Smoker (57-yhja-ihay history, quit 03/18/2024)
Alcohol: None
Drug: None
Living: Other (Lives in a special needs home)
FH: CAD (Father), Cancer (Mother: Ovarian/cervical cancer; Brother: Lung cancer) and Other (Brother: Sarcoidosis; Sister: Alcoholic; Brother: MVA)
Patient Medication
�Medication �Instructions �Recorded �Confirmed �Last Taken �Type
amitriptyline 50 mg tablet 50 mg PO HS Mental Health 03/07/24 04/11/24 03/06/24 20:00 History
atorvastatin 80 mg tablet (Lipitor) 80 mg PO HS High Cholesterol 03/07/24 04/11/24 03/06/24 20:00 History
gabapentin 400 mg tablet 400 mg PO TID Pain 03/07/24 04/11/24 03/06/24 20:00 History
metoprolol succinate 25 mg 25 mg PO DAILY Blood Pressure 03/07/24 04/11/24 03/07/24 09:30 History
tablet,extended release 24 hr
(Toprol XL)
aspirin 81 mg tablet,delayed 81 mg PO DAILY Blood Clot 04/11/24 04/11/24 Unknown History
release Prevention/Tx
levalbuterol HCl 1.25 mg/3 mL 1.25 mg inhalation R Q6HPRN PRN sob 04/11/24 04/11/24 Unknown History
solution for nebulization
phenolphthalein, yellow 90 mg 90 mg PO DAILYPRN PRN constipation 04/11/24 04/11/24 Unknown History
chewable tablet
umeclidinium 62.5 mcg-vilanterol 1 inh inhalation R DAILY 04/11/24 04/11/24 Unknown History
25 mcg/actuation powdr for Lung/Breathing Issues
inhalation (Anoro Ellipta)
Active Medications
Generic Name Dose Route Start Last Admin
Trade Name Freq PRN Reason Stop Dose Admin
Acetaminophen 650 mg 04/10/24 23:47 04/15/24 22:01
Acetaminophen 325 Mg Tablet PO 05/08/24 23:46 650 mg
Q4HPRN PRN Administration
mild pain/ALMEIDA/temp> 100.4F
Albuterol/Ipratropium 3 ml 04/10/24 23:47
Ipratropium 0.5/Albuterol 3 Mg (3 Ml Ampul) INH
R Q4HPRN PRN
shortness of breath
Protocol
Albuterol/Ipratropium 3 ml 04/11/24 20:00 04/15/24 19:38
Ipratropium 0.5/Albuterol 3 Mg (3 Ml Ampul) INH 3 ml
R QID SAW Administration
Protocol
Amitriptyline HCl 50 mg 04/10/24 23:47 04/15/24 22:01
Amitriptyline 50 Mg Tablet PO 05/08/24 23:46 50 mg
HS SAW Administration
Aspirin 81 mg 04/11/24 08:00 04/15/24 08:13
Aspirin 81 Mg (Enteric Coated) Tablet PO 05/09/24 07:59 81 mg
DAILY SAW Administration
Atorvastatin Calcium 80 mg 04/11/24 08:00 04/15/24 08:13
Atorvastatin (Lipitor) 80 Mg Tablet PO 05/09/24 07:59 80 mg
DAILY SAW Administration
Bisacodyl 10 mg 04/10/24 23:47
Bisacodyl 10 Mg Rectal Suppository RECTAL 05/08/24 23:46
[id number] PRN
constipation
Cyanocobalamin 1,000 mcg 04/12/24 08:00 04/15/24 17:12
Cyanocobalamin 1,000 Mcg Tablet PO 05/10/24 07:59 1,000 mcg
DAILY SAW Administration
Dexamethasone Sodium Phosphate 6 mg 04/11/24 16:34 04/15/24 20:24
Dexamethasone 4 Mg/Ml 1 Ml Vial IV 05/09/24 11:59 6 mg
Q12 SAW Administration
Doxycycline Hyclate 100 mg 04/11/24 14:10 04/15/24 20:24
Doxycycline 100 Mg Capsule PO 04/16/24 14:09 100 mg
Q12 SAW Administration
Enoxaparin Sodium 40 mg 04/11/24 18:00 04/15/24 17:12
Enoxaparin Sodium 40 Mg/0.4 Ml Syringe SC 05/09/24 17:59 40 mg
QPM SAW Administration
Gabapentin 400 mg 04/11/24 08:00 04/15/24 22:01
Gabapentin 400 Mg Capsule PO 05/09/24 07:59 400 mg
TID SAW Administration
Lidocaine 1 patch 04/12/24 22:30 04/15/24 20:24
Lidocaine 4% Topical Patch TOPICAL 05/10/24 22:29 1 patch
DAILY@2000 SAW Administration
Protocol
Metoprolol Succinate 25 mg 04/11/24 08:00 04/15/24 08:13
Metoprolol 25 Mg Extended Release Tablet PO 05/09/24 07:59 25 mg
DAILY SAW Administration
Oseltamivir Phosphate 75 mg 04/11/24 08:00 04/15/24 20:24
Oseltamivir (Tamiflu) 75 Mg Capsule PO 04/16/24 07:59 75 mg
BID SAW Administration
Patch Removal 0 patch 04/13/24 09:00 04/15/24 08:39
Remove Lidocaine Patch REMOVE 05/11/24 08:59 1 patch
DAILY SAW Administration
Polyethylene Glycol 17 grams 04/10/24 23:47
Polyethylene Glycol Powder 17 Grams Packet PO 05/08/24 23:46
DAILYPRN PRN
constipation
Senna/Docusate Sodium 1 tablet 04/10/24 23:47
Docusate W/Senna (Zeinab-Colace) Tablet PO 05/08/24 23:46
BIDPRN PRN
constipation
Sodium Chloride 0 flush 04/11/24 01:00
Sodium Chloride 0.9% (Flush) Syringe IV 05/09/24 00:59
PER PROTOCOL SAW
Physical Exam
-
General: Well Developed, Well Nourished, No Apparent Distress and Comfortable
HEENT: Negative Jaundice
Cardiology: Normal Sinus Rhythm, S1 and S2
Pulmonary: Clear; Negative Rales
GI: Soft and Normal Bowel Sounds
Extremities: No C/C/E
Neurology: Non Focal
Labs
Lab Results
WBC 12.3 10^3/uL (4.8-10.8) H 04/14/24 08:36
RBC 3.99 10^6/uL (4.70-6.10) L 04/14/24 08:36
Hgb 10.1 g/dL (13.0-18.0) L 04/14/24 08:36
Hct 31.7 % (39.0-52.0) L 04/14/24 08:36
MCV 79.4 fL (80.0-94.0) L 04/14/24 08:36
MCH 25.3 pg (27.0-31.0) L 04/14/24 08:36
MCHC 31.9 g/dL (33.0-37.0) L 04/14/24 08:36
RDW 15.6 % (11.5-14.5) H 04/14/24 08:36
Plt Count 475 10^3/uL (130-400) H 04/14/24 08:36
MPV 9.2 fL (7.4-10.4) 04/14/24 08:36
Abs Immat Gran (auto) 0.1 10^3/uL (0-0.05) H 04/14/24 08:36
Absolute Neuts (auto) 11.1 10^3/uL (1.4-6.5) H 04/14/24 08:36
Absolute Lymphs (auto) 0.6 10^3/uL (1.2-3.4) L 04/14/24 08:36
Absolute Monos (auto) 0.4 10^3/uL (0.1-0.6) 04/14/24 08:36
Absolute Eos (auto) 0.0 10^3/uL (0-0.7) 04/14/24 08:36
Absolute Basos (auto) 0.0 10^3/uL (0-0.2) 04/14/24 08:36
Immature Gran % 0.9 % (0-0.5) H 04/14/24 08:36
Neutrophils % 90.6 % (42.2-75.2) H 04/14/24 08:36
Lymphocytes % 4.9 % (20.5-51.1) L 04/14/24 08:36
Monocytes % 3.4 % (1.7-9.3) 04/14/24 08:36
Eosinophils % 0.0 % (0-6) 04/14/24 08:36
Basophils % 0.2 % (0-2) 04/14/24 08:36
Creatinine 0.6 mg/dL (0.7-1.3) L 04/15/24 06:05
Vital Signs
Vital Signs
Temp Pulse Resp BP Pulse Ox
98.3 F 92 18 131/79 95
04/15/24 23:55 04/15/24 23:55 04/15/24 23:55 04/15/24 23:55 04/15/24 23:55
[2024-04-16 07:00] VITALS: BP 141/67
[2024-04-16] MEDS: DUONEB 3 ML INH ×4 (07:11→19:29)
[2024-04-16] MEDS: LIPITOR 80 MG PO (08:30)
[2024-04-16] MEDS: VITAMIN B-12 1000 MCG PO (08:30)
[2024-04-16] MEDS: NEURONTIN 400 MG PO ×3 (08:30→22:17)
[2024-04-16] MEDS: VIBRAMYCIN 100 MG PO (08:31)
[2024-04-16] MEDS: ASPIR LOW (ENTERIC COATED) 81 MG PO (08:31)
[2024-04-16] MEDS: DECADRON 6 MG IV ×2 (08:33→19:16)
[2024-04-16] MEDS: TOPROL XL 25 MG PO (08:34)
--- NOTE | 2024-04-16 11:50 | CM ---
Addendum entered by Peggy Oconnor 04/16/24 15:16:
Accepted by [facility],
Sister in law in agreement but after running insurance unable to accept.
Additional referrals sent out.
Original Note:
TC to Madelyn re skilled bed.
Per Madelyn, she is in a meeting and requested call back at 12:30 pm.
--- NOTE | 2024-04-16 12:31 | W.PN.HOSP.TC ---
Today's Communication/Plan
-
see note
Assessment / Plan
Assessment / Plan
1. Exertional Dyspnea
-multifactorial from Influenza A infection / COPD flare up /RUL collapse from malignancy
-COVID negative
-chest x ray with the impression of large rounded density in the right hilar and suprahilar region, which likely represents lung cancer.Complete opacification right upper lobe, which is likely mainly due to postobstructive atelectasis. Correlating
with prior exams, and may also be a component of peripheral loculated pleural effusion.Subtle nodular parenchymal opacity within the right middle lobe and possibly within the right lower lobe, which may represent mild postobstructive pneumonitis.
-Tamiflu continued
-Tylenol as needed for fever or pain
-Echocardiogram showing EF of 55 to 60%. No major valvulopathy
-Patient again noted with some wheezing dyspnea while talking. Repeat chest x-ray ordered
-Ambulatory oxygen test above 95% - does not qualify for home o2
2. Acute COPD exacerbation
Tobacco abuse-quit smoking 3 weeks ago.
-Continue patient on Decadron 6 mg every 12 -can deescalate in next 24h.
-Bronchodilators.
3. Influenza A infection
- Finished 5 days of Tamiflu course
- getting empiric doxycycline 5 days course
- resp sputum culture ordered
4. Generalized weakness likely secondary to newly diagnosed lung cancer/influenza A
-PT/OT recommended SNF rehab
5. Right upper lung undifferentiated carcinoma
-Pathology and Genetic testing results reviewed - undifferentiated carcinoma
-scheduled for treatment as outpatient next month-Plan for port placement next week.
-family history of lung cancer.
-follows w/ Dr. [facility].
6. Microcytic anemia
-start b12 supplementation.
-ferritin increased due to acute inflammatory process
-no acute bleeding
-ctm
# Hyponatremia likely dehydration
#Underweight -dietary eval. -recent wt loss per family ?due to malignancy.
# Coronary artery disease
# Cardiac stents
# Anxiety disorder
# Hyperlipidemia
# Hypertension
DVT prophylaxis-Lovenox
CODE STATUS -Full code
04/16 discussed with patient brother/[id number]-ahi care plan. They are requesting patient to have an inpatient chemotherapy/radiation, I have discussed that dose down does not provide this. POA is planning to call other facilities in [facility] to get
further information. I have recommended for patient to be placed in snf facility for rehab and once patient regains strength/independence can be started on outpatient chemotherapy/radiation.
POA request of callback from oncology services has been conveyed to oncology service through TT
Total time spent ; 52 mins
Anticipated Discharge: Within 24 hours
Subjective/Interval History
-
Date of Service: April 16, 2024
Patient noted to be wheezing and dyspneic again today
On ambulation maintaining good o2 level
Objective Data
-
Vital Signs:
Vital Signs
Temp Pulse Resp BP Pulse Ox
97.7 F 91 16 141/67 96
04/16/24 07:00 04/16/24 11:20 04/16/24 11:20 04/16/24 08:34 04/16/24 11:20
I&O
04/15/24 04/16/24 04/17/24
06:59 06:59 06:59
Intake Total 1400 / 1400 1680 / 1680
Output Total 2600 / 2600 900 / 900 200 / 200
Balance -1200 / -1200 780 / 780 -200 / -200
Review of Systems
-
Respiratory: Reports No Symptoms
Cardiac: Reports No Symptoms
Abdomen/GI: Reports No Symptoms
Physical Exam
-
General: Comfortable
HEENT: Negative Oxygen
Respiratory: Wheezes
Cardiac: Regular Rhythm and S1/S2; Negative Murmur or Rub
GI: Soft and Nontender
Musculoskeletal: No Edema
Neuro: Awake, Alert, Oriented, No Motor Deficits and Nonfocal/Grossly Intact
Psych: Calm
--- NOTE | 2024-04-16 13:00 | W.PN.PUL3 ---
Today's Communication / Plan
-
Continue supportive care
Tamiflu, antibiotic, steroid
Antitussive therapy
Ambulating on room air, no hypoxia
DVT prophylaxis
Hope for initiation of cancer treatment soon
No further recommendations at this time
We will sign off. Please call with questions
Assessment
-
Assessment: 64-year-old male with newly diagnosed right upper lobe NSCLC, COPD, CAD, former tobacco use disorder, hyperlipidemia, depression, hypertension, history of autism and lumbar radiculopathy who presents with shortness of breath and cough.
Patient follows with us in the office with Dr. Fontana, last visit on 03/21/2024. He did see BETHANY Pat on 04/10/2024 due to worsening shortness of breath and cough. He went to the ER for further management. He has been having worsening
cough with green phlegm for the past 2-3 days. Also has headache, fevers and chills. Flu swab was positive for influenza A. Tamiflu started and so was Decadron given his history of COPD. He has continued to have significant shortness of breath
that has not been improving, so now pulmonary service consulted for additional management/recommendations.
Chronic conditions [employer]: Malignant neoplasm of right upper lobe, COPD, CAD, former tobacco use disorder, hyperlipidemia, depression, hypertension, anxiety, lumbar radiculopathy, history of autism
Impression:
#SOB with acute hypoxic respiratory failure due to influenza A in the setting of COPD and newly diagnosed RUL carcinoma with significant right upper lobe atelectasis
#Influenza A pneumonia
#Leukocytosis � likely steroid-induced
#Chronic anemia
#Thrombocytosis likely reactive
#Hyponatremia
#RUL poorly differentiated/undifferentiated carcinoma (diagnosed via EBUS-bronchoscopy on 03/07/2024)
#Moderate COPD with borderline significant bronchodilator response with mild�moderate restrictive lung defect and moderately reduced gas exchange capacity which is normal when accounting for alveolar volume involved in gas exchange (via PFTs from
03/21/2024)
#Former tobacco use disorder (11-jtlt-axge history, quit 03/18/2024)
#History of CAD s/p stent
#Depression/anxiety
#History of autism
#History of lumbar radiculopathy
Plan/recommendations:
At this time, patient appears to be comfortable.
Reportedly on short of breath and coughing earlier this morning
Ambulated 150 feet on room air, 97%
Presently on room air conversing
Moving forward
I relayed to the patient that his cough will not resolve until his cancer is treated
Hopefully therapy can be started soon
Continue with Tamiflu, doxycycline for now, complete 7-day course of antibiotics
Remains on Decadron. Not sure how much this will help him but we will continue
Transition to oral prednisone with taper off over 7 days
He is awaiting to start treatment for his right upper lobe carcinoma, follow-up with Oncology as an outpatient
Hope for therapy to start soon
DVT ppx: LMWH
Pulmonary service will continue to follow along. Will arrange for outpatient pulmonary office follow-up with Dr. Fontana following discharge. Next appointment on 06/18/2024 at 3 PM, and this will be moved up.
Data:
CXR 04/10/2024:
Large rounded density in the right hilar and suprahilar region, which likely represents lung cancer.
Complete opacification right upper lobe, which is likely mainly due to postobstructive atelectasis. Correlating with prior exams, and may also be a component of peripheral loculated pleural effusion.
Subtle nodular parenchymal opacity within the right middle lobe and possibly within the right lower lobe, which may represent mild postobstructive pneumonitis.
Subjective Data
-
Date of Service:
Date of Service: April 16, 2024
Subjective:
Primary complaint is cough. Patient appears to be comfortable, currently on room air. Denies hemoptysis, chest pain, nausea. He states he is ambulating the bathroom without difficulty.
Objective Data
Data Reviewed
Vital Signs / I&O / Oxygen:
Vital Signs
Temp Pulse Resp BP Pulse Ox
97.7 F 91 16 141/67 96
04/16/24 07:00 04/16/24 11:20 04/16/24 11:20 04/16/24 08:34 04/16/24 11:20
Intake and Output
04/15/24 04/16/24 04/17/24
06:59 06:59 06:59
Intake Total 1400 / 1400 1680 / 1680
Output Total 2600 / 2600 900 / 900 200 / 200
Balance -1200 / -1200 780 / 780 -200 / -200
SaO2 96
Physical Exam
General: Comfortable
HEENT: Normocephalic and Anicteric
Cardiovascular: S1-S2, Regular Rhythm, Murmur (n) and Rub (n)
Respiratory: Wheeze (n), Crackles (few right side), Rhonchi (Few right side), Non-Labored Respirations and Other (Decreased breath sounds right side apex)
GI: Soft, Non Distended and Non Tender
Neurology: Awake, Alert and No Motor Deficits
Skin: Cyanosis (n), Jaundice (n) and Rash (n)
Labs/Micro/Reports
Lab Data
04/14/24 08:36
04/15/24 06:05
[2024-04-16] MEDS: TORADOL 15 MG IV (13:15)
[2024-04-16] MEDS: LIDOCAINE 4% PATCH 1 PATCH TOPICAL ×2 (13:17→19:15)
[2024-04-16] MEDS: LOVENOX 40 MG SC (17:17)
[2024-04-16] MEDS: TUMS CHEWABLE TABLET 400 MG PO ×2 (19:16→23:31)
[2024-04-16] MEDS: ROBITUSSIN DM 10 ML PO ×2 (19:22→23:31)
[2024-04-16] MEDS: PEPCID 20 MG PO (22:17)
[2024-04-16] MEDS: ELAVIL 50 MG PO (22:17)
[2024-04-16 22:58] VITALS: BP 136/85
[2024-04-16] MEDS: TYLENOL 650 MG PO (23:30)
[2024-04-17] MEDS: DUONEB 3 ML INH ×4 (07:32→20:08)
[2024-04-17 07:47] VITALS: BP 119/82
[2024-04-17] MEDS: NEURONTIN 400 MG PO ×3 (08:16→21:05)
[2024-04-17] MEDS: LIPITOR 80 MG PO (08:16)
[2024-04-17] MEDS: VITAMIN B-12 1000 MCG PO (08:16)
[2024-04-17] MEDS: TOPROL XL 25 MG PO (08:16)
[2024-04-17] MEDS: ASPIR LOW (ENTERIC COATED) 81 MG PO (08:16)
[2024-04-17] MEDS: TYLENOL 650 MG PO (08:19)
[2024-04-17] MEDS: LIDOCAINE 4% PATCH 1 PATCH TOPICAL ×2 (08:19→20:04)
[2024-04-17] MEDS: DECADRON 6 MG IV (08:21)
--- NOTE | 2024-04-17 10:58 | W.PN.ONC ---
Today's Communication / Plan
-
Continue pulmonary toilet
Appreciate pulmonary input to optimize his respiratory status.
He will likely be able to start chemoradiation soon
He was scheduled for follow-up with Dr. Benjamin Yesterday
Reschedule office visit
Impression
Impression
Acute COPD exacerbation
Influenza A infection
Stage IIIb NSCLC (cT4cN2) - chemoXRT about to start
Subjective/Objective
Subjective/Objective
Productive nonproductive cough nonproductive cough
Vital Signs:
Vital Signs
Temp Pulse Resp BP Pulse Ox
97.8 F 80 18 119/82 96
04/17/24 07:47 04/17/24 08:16 04/17/24 07:47 04/17/24 08:16 04/17/24 07:47
General: Comfortable
HEENT: Negative Oxygen
Respiratory: Wheezes
Cardiac: Regular Rhythm
GI: Soft and Nontender
Musculoskeletal: No Edema
Neuro: Awake, Alert, Oriented, No Motor Deficits and Nonfocal/Grossly Intact
Psych: Calm
Lab Results:
Laboratory Data
WBC 12.3 10^3/uL (4.8-10.8) H 04/14/24 08:36
Hgb 10.1 g/dL (13.0-18.0) L 04/14/24 08:36
Plt Count 475 10^3/uL (130-400) H 04/14/24 08:36
eGFR > 60.00 04/15/24 06:05
--- NOTE | 2024-04-17 11:00 | CM ---
Continue bed search for skilled rehab.
Multiple referrals sent.
Multiple phone calls to facilities.
Will need [facility] auth.
Plan: skilled rehab once bed available.
--- NOTE | 2024-04-17 12:07 | W.PN.HOSP.TC ---
Today's Communication/Plan
-
d/c planning for snf rehab
tramadol for back pain
Assessment / Plan
Assessment / Plan
1. Exertional Dyspnea
-multifactorial from Influenza A infection / COPD flare up /RUL collapse from malignancy
-COVID negative
-chest x ray with the impression of large rounded density in the right hilar and suprahilar region, which likely represents lung cancer.Complete opacification right upper lobe, which is likely mainly due to postobstructive atelectasis. Correlating
with prior exams, and may also be a component of peripheral loculated pleural effusion.Subtle nodular parenchymal opacity within the right middle lobe and possibly within the right lower lobe, which may represent mild postobstructive pneumonitis.
-Echocardiogram showing EF of 55 to 60%. No major valvulopathy
-Patient again noted with some wheezing dyspnea while talking. Repeat chest x-ray ordered
-Ambulatory oxygen test above 95% - does not qualify for home o2
2. Acute COPD exacerbation
Tobacco abuse-quit smoking 3 weeks ago.
-Discontinue further IV Decadron, transition to oral prednisone therapy
-Bronchodilators.
3. Influenza A infection
Viral Sepsis-POA
- Finished 5 days of Tamiflu course
- Finished empiric doxycycline 5 days course
4. Generalized weakness likely secondary to newly diagnosed lung cancer/influenza A
-PT/OT recommended SNF rehab
5. Right upper lung undifferentiated carcinoma
-Pathology and Genetic testing results reviewed - undifferentiated carcinoma
-scheduled for treatment as outpatient next month-Plan for port placement next week.
-family history of lung cancer.
-follows w/ [facility]. [facility].
6. Microcytic anemia
-start b12 supplementation.
-ferritin increased due to acute inflammatory process
-no acute bleeding
Hyponatremia likely dehydration
Underweight -dietary eval. -recent wt loss per family ?due to malignancy.
Coronary artery disease
Cardiac stents
Anxiety disorder
Hyperlipidemia
Essential Hypertension
DVT prophylaxis-Lovenox
CODE STATUS -Full code
04/16 discussed with patient brother/ildyqm-ku-fhe care plan. They are requesting patient to have an inpatient chemotherapy/radiation, I have discussed that dose down does not provide this. POA is planning to call other facilities in [facility] to get
further information. I have recommended for patient to be placed in longterm facility for rehab and once patient regains strength/independence can be started on outpatient chemotherapy/radiation.
POContreras request of callback from oncology services has been conveyed to oncology service through TT
Anticipated Discharge: Today
Subjective/Interval History
-
Date of Service: April 17, 2024
Patient remains dyspneic on exertion
Continue to have some dry cough
Having some back pain
Objective Data
-
Vital Signs:
Vital Signs
Temp Pulse Resp BP Pulse Ox
97.8 F 86 16 119/82 96
04/17/24 07:47 04/17/24 11:24 04/17/24 11:24 04/17/24 08:16 04/17/24 11:24
I&O
04/16/24 04/17/24 04/18/24
06:59 06:59 06:59
Intake Total 1680 / 1680 480 / 480 480 / 480
Output Total 900 / 900 2049 / 2049 500 / 500
Balance 780 / 780 -1570 / -1570 -20 / -20
Review of Systems
-
Respiratory: Reports Cough; Denies Trouble Breathing
Cardiac: Reports No Symptoms
Abdomen/GI: Reports No Symptoms
Physical Exam
-
General: Comfortable
HEENT: Negative Oxygen
Respiratory: Wheezes
Cardiac: Regular Rhythm and S1/S2; Negative Murmur or Rub
GI: Soft and Nontender
Musculoskeletal: No Edema
Neuro: Awake, Alert, Oriented, No Motor Deficits and Nonfocal/Grossly Intact
Psych: Calm
[2024-04-17 15:30] VITALS: BP 137/84
[2024-04-17 17:00] VITALS: BP 133/81; BMI 18.1
[2024-04-17] MEDS: TUMS CHEWABLE TABLET 400 MG PO (18:27)
[2024-04-17] MEDS: LOVENOX 40 MG SC (18:27)
[2024-04-17] MEDS: ROBITUSSIN DM 10 ML PO (20:10)
[2024-04-17] MEDS: ULTRAM 25 MG PO (20:10)
[2024-04-17] MEDS: ELAVIL 50 MG PO (21:06)
[2024-04-17 23:00] VITALS: BP 124/73
[2024-04-18 07:00] VITALS: BP 118/67
[2024-04-18] MEDS: DUONEB 3 ML INH (07:12)
[2024-04-18 08:36] LABS: Hematocrit 35.6 % (39.0-52.0); Hemoglobin 11.3 g/dL (13.0-18.0); Mean Corp Hgb Conc. 31.7 g/dL (33.0-37.0); Mean Corpuscular Hgb 25.3 pg (27.0-31.0); Mean Corpuscular Volume 79.8 fL (80.0-94.0); Mean Platelet Volume 9.6 fL (7.4-10.4); Platelet Count 408 10^3/uL (130-400); Red Blood Cell Count 4.46 10^6/uL (4.70-6.10); Red Cell Dist. Width 17.2 % (11.5-14.5)
[2024-04-18] MEDS: DELTASONE 40 MG PO (08:56)
[2024-04-18] MEDS: NEURONTIN 400 MG PO ×3 (08:56→21:03)
[2024-04-18] MEDS: VITAMIN B-12 1000 MCG PO (08:56)
[2024-04-18] MEDS: LIPITOR 80 MG PO (08:56)
[2024-04-18] MEDS: ASPIR LOW (ENTERIC COATED) 81 MG PO (08:56)
[2024-04-18] MEDS: TOPROL XL 25 MG PO (08:56)
[2024-04-18 08:57] LABS: Blood Urea Nitrogen 23 mg/dl (9-20); Calcium 8.6 mg/dl (8.4-10.2); Carbon Dioxide 28 mmol/L (22-30); Chloride 99 mmol/L (98-107); Estimated Creatinine Clearance 96 ml/min; Glucose 78 mg/dl (70-99); Potassium 4.3 mmol/L (3.5-5.1); Sodium 130 mmol/L (135-145); eGFR > 60.00
[2024-04-18] MEDS: LIDOCAINE 4% PATCH 1 PATCH TOPICAL ×2 (08:57→19:42)
--- NOTE | 2024-04-18 09:48 | CM ---
Addendum entered by Trista Howe RN 04/18/24 12:07:
Call received from Miah Rios, Triage Software Controls Engineer , from [facility] ([phone]). She was calling to obtain additional regarding the challenges we are having in finding an accepting nursing home facility. One of the concerns the SNF's
had brought forward is the cost of transportation if he should need to be brought back and forth for outpt chemo or radiation. Miah stated if that was the case they could request a single case agreement with [facility] for a higher level of
reimbursement that would accommodate the cost of the transportation. She said that the SNF itself would need to call into [facility] themselves to request it. She also said this patient has an outreach service coor,who is not a nurse, but
does coordinate care for this patient on an outpt basis. She said if the decision was made for him to go home instead of go to a nursing home facility that she would be helpful in arranging additonal services as needed. Her name is Estela
Abelino at [phone]. She suggested we make an outreach call to her to discuss the patients needs. She also said she she has been in conversation with his Uwuhvj-ud-zwc, Madelyn Stanley. Update to .
Original Note:
Return call placed to Ngoc Rob/Industrial Relations Representative at [facility] regarding asking assistance to find a participating SNF who would accept this member. Made Ngoc aware that we sent 22 referrals to participating [facility] facilities without
any accepting facilities.Ngoc stated that this past has additional benefits under his LTTS, which is intermediate support . She stated she would make a referral to her Transition Care Team as well as her Service Coor Team to reach out to us and
assist. She did clarify that for [facility] , if someone is in a skilled facility and needs chemo or radiation, that those services are reimbursed separate from the SNF. I also made her aware that some of the facilities were hesitant to take
him also due to concerns and ability to arrange and pay for rides for him to and from treatment. Ngoc stated that on occasion that through his LTTS benefit also stated that sometimes that transportation can be arranged for a short period of time
, but they would need to know the frequency of the treatments. She stated that someone from those two departments would reach out to us. Update to CM.
--- NOTE | 2024-04-18 11:37 | W.PN.HOSP.TC ---
Today's Communication/Plan
-
medically remains stable
discharge planning for snf rehab
Assessment / Plan
Assessment / Plan
1. Exertional Dyspnea
-multifactorial from Influenza A infection / COPD flare up /RUL collapse from malignancy
-COVID negative
-chest x ray with the impression of large rounded density in the right hilar and suprahilar region, which likely represents lung cancer.Complete opacification right upper lobe, which is likely mainly due to postobstructive atelectasis. Correlating
with prior exams, and may also be a component of peripheral loculated pleural effusion.Subtle nodular parenchymal opacity within the right middle lobe and possibly within the right lower lobe, which may represent mild postobstructive pneumonitis.
-Echocardiogram showing EF of 55 to 60%. No major valvulopathy
-Repeat CXR showing stable findings.
-Ambulatory oxygen test above 95% - does not qualify for home o2
2. Acute COPD exacerbation
Tobacco abuse-quit smoking 3 weeks ago.
-Discontinue further IV Decadron, transition to oral prednisone therapy
-Bronchodilators.
3. Influenza A infection
Viral Sepsis-POA
- Finished 5 days of Tamiflu course
- Finished empiric doxycycline 5 days course
4. Generalized weakness likely secondary to newly diagnosed lung cancer/influenza A
-PT/OT recommended SNF rehab
5. Right upper lung undifferentiated carcinoma
-Pathology and Genetic testing results reviewed - undifferentiated carcinoma
-scheduled for treatment as outpatient next month-Plan for port placement next week.
-family history of lung cancer.
-follows w/ [facility] and plan to get port-a-cath and eventual chemotherapy.
6. Microcytic anemia
-start b12 supplementation.
-ferritin increased due to acute inflammatory process
-no acute bleeding
Hyponatremia likely dehydration
Underweight -dietary eval. -recent wt loss per family ?due to malignancy.
Coronary artery disease
Cardiac stents
Anxiety disorder
Hyperlipidemia
Essential Hypertension
DVT prophylaxis-Lovenox
CODE STATUS -Full code
04/16 discussed with patient brother/jwknpr-pr-jza care plan. They are requesting patient to have an inpatient chemotherapy/radiation, I have discussed that dose down does not provide this. POA is planning to call other facilities in [facility] to get
further information. I have recommended for patient to be placed in [facility] facility for rehab and once patient regains strength/independence can be started on outpatient chemotherapy/radiation.
POA request of callback from oncology services has been conveyed to oncology service through TT.
Anticipated Discharge: Today
Subjective/Interval History
-
Date of Service: April 18, 2024
Resting comfortably in bed
Having some dry cough
Back pain is better with pain medication
Objective Data
-
Labs:
Laboratory Results
04/18/24
08:23
WBC 13.0 H
Hgb 11.3 L
Hct 35.6 L
Plt Count 408 H
Sodium 130 L
Potassium 4.3
Chloride 99
Carbon Dioxide 28
BUN 23 H
Creatinine 0.6 L
Glucose 78
Calcium 8.6
Vital Signs:
Vital Signs
Temp Pulse Resp BP Pulse Ox
97.7 F 89 16 118/67 96
04/18/24 07:00 04/18/24 08:56 04/18/24 07:15 04/18/24 08:56 04/18/24 07:15
I&O
04/17/24 04/18/24 04/19/24
06:59 06:59 06:59
Intake Total 480 / 480 1260 / 1260
Output Total 2049 1575 / 1575
Balance -1570 / -1570 -315 / -315
Review of Systems
-
Respiratory: Reports No Symptoms
Cardiac: Reports No Symptoms
Abdomen/GI: Reports No Symptoms
Physical Exam
-
General: Comfortable
HEENT: Negative Oxygen
Respiratory: Wheezes
Cardiac: Regular Rhythm and S1/S2; Negative Murmur or Rub
GI: Soft and Nontender
Musculoskeletal: No Edema
Neuro: Awake, Alert, Oriented, No Motor Deficits and Nonfocal/Grossly Intact
Psych: Calm
--- NOTE | 2024-04-18 12:06 | CM ---
Addendum entered by Peggy Oconnor 04/18/24 13:17:
TC back from [facility] re options available. Explained situation and difficulty finding a bed for patient due to reimbursement rate. She will escalate case to her upper management.
Spoke with Jessica from [facility], upper management at her facilities are reviewing the case and will get back to cm.
Original Note:
TC to [facility] p#[phone], [facility] re home services available. Await tcb.
[2024-04-18] MEDS: TUMS CHEWABLE TABLET 400 MG PO (13:29)
[2024-04-18 14:30] VITALS: BP 117/72; PULSE 96; O2SAT 93
[2024-04-18 15:00] VITALS: BP 118/70
[2024-04-18] MEDS: MAALOX 30 ML PO (17:03)
[2024-04-18] MEDS: LOVENOX 40 MG SC (17:04)
[2024-04-18 17:56] LABS: Troponin I < 0.012 ng/ml
[2024-04-18] MEDS: XOPENEX 0.63 MG INHALANT SOLUTION INH (19:49)
[2024-04-18] MEDS: ROBITUSSIN DM 10 ML PO (20:28)
[2024-04-18] MEDS: ELAVIL 50 MG PO (21:03)
[2024-04-18 23:59] VITALS: BP 124/69
[2024-04-19 07:00] VITALS: BP 113/69
[2024-04-19] MEDS: NEURONTIN 400 MG PO ×3 (07:49→21:37)
[2024-04-19] MEDS: DELTASONE 40 MG PO (07:49)
[2024-04-19] MEDS: LIPITOR 80 MG PO (07:49)
[2024-04-19] MEDS: TOPROL XL 25 MG PO (07:49)
[2024-04-19] MEDS: ASPIR LOW (ENTERIC COATED) 81 MG PO (07:49)
[2024-04-19] MEDS: VITAMIN B-12 1000 MCG PO (07:49)
[2024-04-19] MEDS: PROTONIX 40 MG PO (07:49)
[2024-04-19] MEDS: LIDOCAINE 4% PATCH 1 PATCH TOPICAL ×2 (07:52→20:18)
[2024-04-19] MEDS: TYLENOL 650 MG PO (07:55)
[2024-04-19] MEDS: DUONEB 3 ML INH ×2 (09:47→20:14)
[2024-04-19] MEDS: ULTRAM 50 MG PO (10:09)
[2024-04-19] MEDS: ROBITUSSIN DM 10 ML PO ×4 (10:09→21:37)
--- NOTE | 2024-04-19 11:36 | W.PN.HOSP.TC ---
Today's Communication/Plan
-
snf rehab placement
Assessment / Plan
Assessment / Plan
1. Exertional Dyspnea
-multifactorial from Influenza A infection / COPD flare up /RUL collapse from malignancy
-COVID negative
-chest x ray with the impression of large rounded density in the right hilar and suprahilar region, which likely represents lung cancer.Complete opacification right upper lobe, which is likely mainly due to postobstructive atelectasis. Correlating
with prior exams, and may also be a component of peripheral loculated pleural effusion.Subtle nodular parenchymal opacity within the right middle lobe and possibly within the right lower lobe, which may represent mild postobstructive pneumonitis.
-Echocardiogram showing EF of 55 to 60%. No major valvulopathy
-Repeat CXR showing stable findings.
-Ambulatory oxygen test above 95% - does not qualify for home o2
2. Acute COPD exacerbation
Tobacco abuse-quit smoking 3 weeks ago.
-Discontinue further IV Decadron,
-On oral prednisone therapy , slow taper.
-Bronchodilators.
3. Influenza A infection
Viral Sepsis-POA
- Finished 5 days of Tamiflu course
- Finished empiric doxycycline 5 days course
4. Generalized weakness likely secondary to newly diagnosed lung cancer/influenza A
-PT/OT recommended SNF rehab
5. Right upper lung undifferentiated carcinoma
-Pathology and Genetic testing results reviewed - undifferentiated carcinoma
-scheduled for treatment as outpatient next month-Plan for port placement next week.
-family history of lung cancer.
-follows w/ [facility] and plan to get port-a-cath and eventual chemotherapy.
6. Microcytic anemia
-start b12 supplementation.
-ferritin increased due to acute inflammatory process
-no acute bleeding
Hyponatremia likely dehydration
Underweight -dietary eval. -recent wt loss per family ?due to malignancy.
Coronary artery disease
Cardiac stents
Anxiety disorder
Hyperlipidemia
Essential Hypertension
DVT prophylaxis-Lovenox
CODE STATUS -Full code
04/16 discussed with patient brother/qshkco-ae-vww care plan. They are requesting patient to have an inpatient chemotherapy/radiation, I have discussed that dose down does not provide this. POContreras is planning to call other facilities in [facility] to get
further information. I have recommended for patient to be placed in group home facility for rehab and once patient regains strength/independence can be started on outpatient chemotherapy/radiation.
ISRA request of callback from oncology services has been conveyed to oncology service through TT.
Anticipated Discharge: 24 - 48 hours
Subjective/Interval History
-
Date of Service: April 19, 2024
complaining of cough
back pain and leg pain
remains dyspnic
Objective Data
-
Vital Signs:
Vital Signs
Temp Pulse Resp BP Pulse Ox
98.8 F 95 18 113/69 91
04/19/24 07:00 04/19/24 07:49 04/19/24 07:00 04/19/24 07:49 04/19/24 07:00
I&O
04/18/24 04/19/24 04/20/24
06:59 06:59 06:59
Intake Total 1260 / 1260 1320 / 1320 240 / 240
Output Total 1575 / 1575 1475 / 1475 350 / 350
Balance -315 / -315 -155 / -155 -110 / -110
Review of Systems
-
Respiratory: Reports No Symptoms
Cardiac: Reports No Symptoms
Abdomen/GI: Reports No Symptoms
Physical Exam
-
General: Comfortable
HEENT: Negative Oxygen
Respiratory: Wheezes
Cardiac: Regular Rhythm and S1/S2; Negative Murmur or Rub
GI: Soft and Nontender
Musculoskeletal: No Edema
Neuro: Awake, Alert, Oriented, No Motor Deficits and Nonfocal/Grossly Intact
Psych: Calm
[2024-04-19] MEDS: DILAUDID 0.25 MG IV (11:51)
[2024-04-19 15:00] VITALS: BP 117/68
[2024-04-19] MEDS: LOVENOX 40 MG SC (17:14)
[2024-04-19] MEDS: ELAVIL 50 MG PO (21:37)
[2024-04-19 23:00] VITALS: BP 134/80
[2024-04-20] MEDS: ROBITUSSIN DM PO (01:54)
[2024-04-20] MEDS: ROBITUSSIN DM 10 ML PO ×5 (06:01→21:09)
[2024-04-20 07:00] VITALS: BP 115/72
[2024-04-20] MEDS: ASPIR LOW (ENTERIC COATED) 81 MG PO (09:16)
[2024-04-20] MEDS: LIPITOR 80 MG PO (09:16)
[2024-04-20] MEDS: TOPROL XL 25 MG PO (09:17)
[2024-04-20] MEDS: DELTASONE 40 MG PO (09:17)
[2024-04-20] MEDS: NEURONTIN 400 MG PO ×3 (09:17→21:08)
[2024-04-20] MEDS: VITAMIN B-12 1000 MCG PO (09:17)
[2024-04-20] MEDS: PROTONIX 40 MG PO (09:17)
[2024-04-20] MEDS: LIDOCAINE 4% PATCH 1 PATCH TOPICAL ×2 (09:18→19:49)
--- NOTE | 2024-04-20 09:36 | W.PN.HOSP.TC ---
Today's Communication/Plan
-
symptomatic care of back pain
LE venous doppler
encourage activity as tolerated
snf rehab once insurance auth comes through
Assessment / Plan
Assessment / Plan
1. Exertional Dyspnea
-multifactorial from Influenza A infection / COPD flare up /RUL collapse from malignancy
-COVID negative
-chest x ray with the impression of large rounded density in the right hilar and suprahilar region, which likely represents lung cancer.Complete opacification right upper lobe, which is likely mainly due to postobstructive atelectasis. Correlating
with prior exams, and may also be a component of peripheral loculated pleural effusion.Subtle nodular parenchymal opacity within the right middle lobe and possibly within the right lower lobe, which may represent mild postobstructive pneumonitis.
-Echocardiogram showing EF of 55 to 60%. No major valvulopathy
-Repeat CXR showing stable findings.
-Ambulatory oxygen test above 95% - does not qualify for home o2
-Producing greenish phlegm, no signs to support secondary pneumonia, continue monitoring with consideration of repeat abx if clinically warranted,
2. Acute COPD exacerbation
Tobacco abuse-quit smoking 3 weeks ago.
-Discontinue further IV Decadron,
-On oral prednisone therapy , slow taper.
-maintain on nebulizers/Bronchodilators.
3. Influenza A infection
Viral Sepsis-POA
- Finished 5 days of Tamiflu course
- Finished empiric doxycycline 5 days course
4. Generalized weakness likely secondary to newly diagnosed lung cancer/influenza A
-PT/OT recommended SNF rehab - CM working
5. Right upper lung undifferentiated carcinoma
-Pathology and Genetic testing results reviewed - undifferentiated carcinoma
-scheduled for treatment as outpatient next month-Plan for port placement next week.
-family history of lung cancer.
-follows w/ [facility] and plan to get port-a-cath and eventual chemotherapy.
6. Microcytic anemia
-start b12 supplementation.
-ferritin increased due to acute inflammatory process
-no acute bleeding
7. Back pain
-chronic lumbago, aggravated by cough
-already on steroids for pulm issues
-symptomatic care with heating pad/pain meds/topical nsaid cream
8. Left calf pain
-chronic ? as well. check LE venous Doppler
Hyponatremia likely dehydration
Underweight -dietary eval. -recent wt loss per family ?due to malignancy.
Coronary artery disease
Cardiac stents
Anxiety disorder
Hyperlipidemia
Essential Hypertension
DVT prophylaxis-Lovenox
CODE STATUS -Full code
04/16 discussed with patient brother/ojkaxx-gl-ynw care plan. They are requesting patient to have an inpatient chemotherapy/radiation, I have discussed that does not provide this. POA is planning to call other facilities in [facility] to get
further information. I have recommended for patient to be placed in assisted facility for rehab and once patient regains strength/independence can be started on outpatient chemotherapy/radiation.
POA request of callback from oncology services has been conveyed to oncology service through TT.
04/20 POA Madelyn updated again and all questions answered.
Anticipated Discharge: Within 24 hours
Subjective/Interval History
-
Date of Service: April 20, 2024
continues to have cough
have back pain and left leg pain
Objective Data
-
Vital Signs:
Vital Signs
Temp Pulse Resp BP Pulse Ox
98.2 F 95 18 115/72 92
04/20/24 07:00 04/20/24 07:00 04/20/24 07:00 04/20/24 07:00 04/20/24 07:00
I&O
04/19/24 04/20/24 04/21/24
06:59 06:59 06:59
Intake Total 1320 / 1320 2160 / 2160
Output Total 1475 / 1475 1425 / 1425
Balance -155 / -155 735 / 735
Review of Systems
-
Respiratory: Reports Cough (greenish phlegm)
Cardiac: Reports No Symptoms
Abdomen/GI: Reports No Symptoms
Physical Exam
-
General: Comfortable
HEENT: Negative Oxygen
Respiratory: Rhonchi; Negative Crackles
Cardiac: Regular Rhythm and S1/S2; Negative Murmur or Rub
GI: Soft and Nontender
Musculoskeletal: No Edema
Neuro: Awake, Alert, Oriented, No Motor Deficits and Nonfocal/Grossly Intact
Psych: Calm
[2024-04-20] MEDS: DUONEB 3 ML INH (12:01)
--- NOTE | 2024-04-20 14:00 | PTCARENOTE ---
Addendum entered by Swathi Gupta RN 04/20/24 15:32:
O2 had to increased to 5L.
Original Note:
RA Pox at 88% at rest after coming back from US and breathing is labored. 02-2L placed. O2 increased to 5L and pt sat at 94%. no temp noted.
[2024-04-20 15:00] VITALS: BP 123/66
[2024-04-20] MEDS: LOVENOX 40 MG SC (17:08)
[2024-04-20] MEDS: ELAVIL 50 MG PO (21:09)
[2024-04-20 21:32] LABS: Glucose - Point of Care 152 mg/dl (70-99)
[2024-04-20 23:43] VITALS: BP 132/78
[2024-04-21] MEDS: ROBITUSSIN DM 10 ML PO ×6 (01:56→21:15)
[2024-04-21] MEDS: TYLENOL 650 MG PO (03:45)
[2024-04-21 07:10] VITALS: BP 112/66
[2024-04-21] MEDS: LIDOCAINE 4% PATCH 1 PATCH TOPICAL ×2 (07:47→20:02)
[2024-04-21] MEDS: ASPIR LOW (ENTERIC COATED) 81 MG PO (07:47)
[2024-04-21] MEDS: DELTASONE 30 MG PO (07:47)
[2024-04-21] MEDS: LIPITOR 80 MG PO (07:47)
[2024-04-21] MEDS: PROTONIX 40 MG PO (07:48)
[2024-04-21] MEDS: VITAMIN B-12 1000 MCG PO (07:48)
[2024-04-21] MEDS: NEURONTIN 400 MG PO ×3 (07:48→21:15)
[2024-04-21] MEDS: TOPROL XL 25 MG PO (07:48)
--- NOTE | 2024-04-21 08:21 | W.PN.ONC2 ---
Today's Communication / Plan
-
.
Impression
Impression
Acute COPD exacerbation
Influenza A infection
Stage IIIb NSCLC ([id number]) - chemoXRT about to start
hyponatremia
Plan
Plan
Patient with stage IIIb lung cancer -chemoXRT will be rescheduled
COPD prednisone taper per pulmonary
flu -completed tamiflu
He will likely be able to start chemoradiation once PS optimized. I will discuss discharge home vs SNF with case management.
Subjective/Objective
Subjective
no new complaints
improved productive cough
continued dyspnea, no supplemental O2
denies pain
Vital Signs:
Vital Signs
Temp Pulse Resp BP Pulse Ox
98.1 F 97 24 112/66 93
04/20/24 23:43 04/21/24 07:48 04/20/24 23:43 04/21/24 07:48 04/21/24 06:26
Lab Results:
Laboratory Data
WBC 13.0 10^3/uL (4.8-10.8) H 04/18/24 08:23
Hgb 11.3 g/dL (13.0-18.0) L 04/18/24 08:23
Plt Count 408 10^3/uL (130-400) H 04/18/24 08:23
eGFR > 60.00 04/18/24 08:23
Physical Exam
HEENT: Moist Mucous Membranes; No Jaundice
Cardiology: Normal Sinus Rhythm
Pulmonary: Clear
GI: Soft
Extremities: No Edema
[2024-04-21 08:45] LABS: % Basophils 0.1 % (0-2); % Immature Granulocytes 0.9 % (0-0.5); % Lymphocytes 4.5 % (20.5-51.1); % Monocytes 5.4 % (1.7-9.3); % Neutrophils 89.1 % (42.2-75.2); Absolute Immature Granulocytes 0.2 10^3/uL (0-0.05); Absolute Lymphocytes 0.8 10^3/uL (1.2-3.4); Absolute Neutrophils 16.4 10^3/uL (1.4-6.5); Hematocrit 32.7 % (39.0-52.0); Hemoglobin 10.8 g/dL (13.0-18.0); Mean Corpuscular Hgb 25.6 pg (27.0-31.0); Mean Corpuscular Volume 77.5 fL (80.0-94.0); Mean Platelet Volume 10.2 fL (7.4-10.4); Nucleated Red Blood Cells % 0 % (-); Platelet Count 426 10^3/uL (130-400); Red Blood Cell Count 4.22 10^6/uL (4.70-6.10); Red Cell Dist. Width 17.2 % (11.5-14.5); White Blood Cell Count 18.4 10^3/uL (4.8-10.8)
--- NOTE | 2024-04-21 09:02 | W.PN.HOSP.TC ---
Today's Communication/Plan
-
await placement
await sputum sample
IV abx in the interim
Assessment / Plan
Assessment / Plan
Exertional Dyspnea
-multifactorial from Influenza A infection / COPD flare up /RUL collapse from malignancy
-COVID negative
-chest x ray with the impression of large rounded density in the right hilar and suprahilar region, which likely represents lung cancer.Complete opacification right upper lobe, which is likely mainly due to postobstructive atelectasis. Correlating
with prior exams, and may also be a component of peripheral loculated pleural effusion.Subtle nodular parenchymal opacity within the right middle lobe and possibly within the right lower lobe, which may represent mild postobstructive pneumonitis.
-Echocardiogram showing EF of 55 to 60%. No major valvulopathy
-Repeat CXR showing stable findings.
-Ambulatory oxygen test above 95% - does not qualify for home o2
Suspected secondary bacterial pneumonia
-Sputum sample sent wt gram negative bacilli few
-awaiting final culture data.
-started cefepime for now.
Acute COPD exacerbation
Tobacco abuse-quit smoking 3 weeks ago.
-Discontinue further IV Decadron,
-On oral prednisone therapy , slow taper.
-maintain on nebulizers/Bronchodilators.
Influenza A infection
Viral Sepsis-POA
- Finished 5 days of Tamiflu course
- Finished empiric doxycycline 5 days course
Generalized weakness likely secondary to newly diagnosed lung cancer/influenza A
-PT/OT recommended SNF rehab - CM working
Right upper lung undifferentiated carcinoma
-Pathology and Genetic testing results reviewed - undifferentiated carcinoma
-scheduled for treatment as outpatient
-family history of lung cancer.
-follows w/ [facility] and plan to get port-a-cath and eventual chemotherapy.
-oncology following.
Microcytic anemia
-start b12 supplementation.
-ferritin increased due to acute inflammatory process
-no acute bleeding
Back pain
-chronic lumbago, aggravated by cough
-already on steroids for pulm issues
-symptomatic care with heating pad/pain meds/topical nsaid cream
Left calf pain
-chronic? venous doppler negative for DVT
Hyponatremia likely dehydration
Underweight -dietary eval. -recent wt loss per family ?due to malignancy.
Coronary artery disease
Cardiac stents
Anxiety disorder
Hyperlipidemia
Essential Hypertension
DVT prophylaxis-Lovenox
CODE STATUS -Full code
04/16 discussed with patient brother/fefvrf-yt-lao care plan. They are requesting patient to have an inpatient chemotherapy/radiation, I have discussed that does not provide this. ISRA is planning to call other facilities in [facility] to get
further information. I have recommended for patient to be placed in nursing home facility for rehab and once patient regains strength/independence can be started on outpatient chemotherapy/radiation.
ISRA request of callback from oncology services has been conveyed to oncology service through TT.
04/20 Dr. Yen d/w ISRA Madelyn updated again and all questions answered.
PT/OT continues to recs SNF. CM aware. Await placement
Anticipated Discharge: Today
Subjective/Interval History
-
Date of Service: April 21, 2024
states feeling better compared to yesterday
was producing phelgm with green sputum last week
Objective Data
-
Labs:
Laboratory Results
04/21/24
08:10
WBC 18.4 H
Hgb 10.8 L
Hct 32.7 L
Plt Count 426 H
Sodium Pending
Potassium Pending
Chloride Pending
Carbon Dioxide Pending
BUN Pending
Creatinine Pending
Glucose Pending
Calcium Pending
Vital Signs:
Vital Signs
Temp Pulse Resp BP Pulse Ox
98.1 F 97 24 112/66 93
04/20/24 23:43 04/21/24 07:48 04/20/24 23:43 04/21/24 07:48 04/21/24 06:26
I&O
04/20/24 04/21/24 04/22/24
06:59 06:59 06:59
Intake Total 2160 / 2160 1920 / 192
Output Total 1425 / 1425 2125 / 212
Balance 735 / 735 -205 / -205
Physical Exam
-
General: Comfortable and Cachectic
HEENT: Negative Oxygen
Respiratory: Rhonchi; Negative Crackles
Cardiac: Regular Rhythm and S1/S2; Negative Murmur or Rub
GI: Soft, Nontender, Nondistended and Normal Bowel Sounds
Musculoskeletal: No Edema
Neuro: Awake, Alert, Oriented, No Motor Deficits and Nonfocal/Grossly Intact
Psych: Calm
Data Reviewed
-
Total Time Spent with Patient (in minutes): 55
[2024-04-21 09:07] LABS: Blood Urea Nitrogen 17 mg/dl (9-20); Calcium 8.4 mg/dl (8.4-10.2); Carbon Dioxide 32 mmol/L (22-30); Chloride 95 mmol/L (98-107); Estimated Creatinine Clearance 83 ml/min; Glucose 105 mg/dl (70-99); Potassium 4.2 mmol/L (3.5-5.1); Sodium 131 mmol/L (135-145); eGFR > 60.00
[2024-04-21] MEDS: SENOKOT-S 1 TABLET PO (09:30)
[2024-04-21] MEDS: STERILE WATER FOR INJECTION 10 ML IV ×2 (09:31→17:16)
[2024-04-21] MEDS: MAXIPIME 2000 MG IV ×2 (09:31→17:16)
[2024-04-21 10:40] VITALS: BP 137/74; PULSE 108; PULSE 113; PULSE 118; PULSE 119; O2SAT 88; O2SAT 90
[2024-04-21] MEDS: DUONEB 3 ML INH ×2 (11:30→18:21)
--- NOTE | 2024-04-21 12:48 | CM ---
Spoke with Yahir from [facility], unable to accept.
[facility] if [facility] would be able to accommodate.
They are reviewing.
PT continues to recommend skilled rehab.
Continued bed search.
Plan: skilled rehab once bed available.
[2024-04-21 13:32] VITALS: BMI 17.9
[2024-04-21 15:00] VITALS: BP 135/62
[2024-04-21] MEDS: LOVENOX 40 MG SC (17:16)
[2024-04-21] MEDS: ELAVIL 50 MG PO (21:15)
[2024-04-21 23:22] VITALS: BP 153/77
[2024-04-22] MEDS: STERILE WATER FOR INJECTION 10 ML IV ×3 (02:40→13:05)
[2024-04-22] MEDS: MAXIPIME 2000 MG IV ×2 (02:40→09:39)
[2024-04-22] MEDS: ROBITUSSIN DM 10 ML PO ×6 (02:47→22:23)
[2024-04-22] MEDS: ROXICODONE 5 MG PO (02:49)
[2024-04-22 07:11] VITALS: BP 122/70
[2024-04-22] MEDS: TOPROL XL 25 MG PO (08:19)
[2024-04-22] MEDS: LIDOCAINE 4% PATCH 1 PATCH TOPICAL ×2 (08:19→22:14)
[2024-04-22] MEDS: VITAMIN B-12 1000 MCG PO (08:19)
[2024-04-22] MEDS: NEURONTIN 400 MG PO ×3 (08:19→22:24)
[2024-04-22] MEDS: LIPITOR 80 MG PO (08:19)
[2024-04-22] MEDS: ASPIR LOW (ENTERIC COATED) 81 MG PO (08:19)
[2024-04-22] MEDS: DELTASONE 30 MG PO (08:19)
[2024-04-22] MEDS: PROTONIX 40 MG PO (08:19)
--- NOTE | 2024-04-22 08:25 | W.PN.ONC2 ---
Today's Communication / Plan
-
.
Impression
Impression
Acute COPD exacerbation
Influenza A infection
Stage IIIb NSCLC ([id number]) - chemoXRT about to start
hyponatremia
Plan
Plan
Patient with stage IIIb lung cancer -chemoXRT will be rescheduled
COPD prednisone taper per pulmonary
flu -completed tamiflu
He will likely be able to start chemoradiation once PS optimized, Plan for SNF at discharge
Subjective/Objective
Subjective
no new complaints
Vital Signs:
Vital Signs
Temp Pulse Resp BP Pulse Ox
98.0 F 75 17 122/70 95
04/22/24 07:11 04/22/24 08:19 04/22/24 07:11 04/22/24 08:19 04/22/24 07:11
Lab Results:
Laboratory Data
WBC 18.4 10^3/uL (4.8-10.8) H 04/21/24 08:10
Hgb 10.8 g/dL (13.0-18.0) L 04/21/24 08:10
Plt Count 426 10^3/uL (130-400) H 04/21/24 08:10
eGFR > 60.00 04/21/24 08:10
Physical Exam
HEENT: Moist Mucous Membranes; No Jaundice
Cardiology: Normal Sinus Rhythm
Pulmonary: Clear
GI: Soft
Extremities: No Edema
--- NOTE | 2024-04-22 10:35 | PTCARENOTE ---
Patient off droplet precautions per infection prevention.
--- NOTE | 2024-04-22 11:01 | CM ---
Met with patient at bedside. Continue to look for SNF bed
Spoke with sister in law Madelyn - she has no preference
Jessica liaison from [facility] checking to see if they can accomodate at [facility] SNF
Call to Estela Randle p#[phone], [facility] regarding home services available.
PLAN: SNF once bed available
[2024-04-22] MEDS: DUONEB 3 ML INH ×2 (11:28→20:18)
--- NOTE | 2024-04-22 12:46 | W.PN.HOSP.TC ---
Today's Communication/Plan
-
Await placement
Post discharge will need to be started on port placement, chemo and radiation
Antibiotics for now
Assessment / Plan
Assessment / Plan
Exertional Dyspnea
-multifactorial from Influenza A infection / COPD flare up /RUL collapse from malignancy
-COVID negative
-chest x ray with the impression of large rounded density in the right hilar and suprahilar region, which likely represents lung cancer.Complete opacification right upper lobe, which is likely mainly due to postobstructive atelectasis. Correlating
with prior exams, and may also be a component of peripheral loculated pleural effusion.Subtle nodular parenchymal opacity within the right middle lobe and possibly within the right lower lobe, which may represent mild postobstructive pneumonitis.
-Echocardiogram showing EF of 55 to 60%. No major valvulopathy
-Repeat CXR showing stable findings.
-Ambulatory oxygen test above 95% - does not qualify for home o2
E. coli bacterial pneumonia
-[facility] bacilli growing E. coli and susceptibility noted
-awaiting final culture data.
-Switch patient to ceftriaxone while here and p.o. antibiotics on discharge. Plan for 7-day course.
Acute COPD exacerbation
Tobacco abuse-quit smoking 3 weeks ago.
-Discontinue further IV Decadron,
-On oral prednisone therapy , slow taper.
-maintain on nebulizers/Bronchodilators.
Influenza A infection
Viral Sepsis-POA
- Finished 5 days of Tamiflu course
- Finished empiric doxycycline 5 days course
Generalized weakness likely secondary to newly diagnosed lung cancer/influenza A
-PT/OT recommended SNF rehab - CM working
Right upper lung undifferentiated carcinoma
-Pathology and Genetic testing results reviewed - undifferentiated carcinoma
-scheduled for treatment as outpatient
-family history of lung cancer.
-follows w/ [facility]. [facility] and plan to get port-a-cath and eventual chemotherapy.
-oncology following.
Microcytic anemia
-start b12 supplementation.
-ferritin increased due to acute inflammatory process
-no acute bleeding
Back pain
-chronic lumbago, aggravated by cough
-already on steroids for pulm issues
-symptomatic care with heating pad/pain meds/topical nsaid cream
Left calf pain
-chronic? venous doppler negative for DVT
Hyponatremia likely dehydration
Underweight -dietary eval. -recent wt loss per family ?due to malignancy.
Coronary artery disease
Cardiac stents
Anxiety disorder
Hyperlipidemia
Essential Hypertension
DVT prophylaxis-Lovenox
CODE STATUS -Full code
04/16 discussed with patient brother/hxzziz-nf-fvh care plan. They are requesting patient to have an inpatient chemotherapy/radiation, I have discussed that does not provide this. ISRA is planning to call other facilities in [place] to get
further information. I have recommended for patient to be placed in residential facility for rehab and once patient regains strength/independence can be started on outpatient chemotherapy/radiation.
ISRA request of callback from oncology services has been conveyed to oncology service through TT.
04/20 Dr. Yen d/w POA Madelyn updated again and all questions answered.
PT/OT continues to recs SNF. CM aware. Await placement
Anticipated Discharge: Today
Subjective/Interval History
-
Date of Service: April 22, 2024
feeling little bit better slowly on a daily basis
appetite is improving
Objective Data
-
Vital Signs:
Vital Signs
Temp Pulse Resp BP Pulse Ox
98.0 F 111 18 122/70 92
04/22/24 07:11 04/22/24 11:32 04/22/24 11:32 04/22/24 08:19 04/22/24 11:32
I&O
04/21/24 04/22/24 04/23/24
06:59 06:59 06:59
Intake Total 1919 480 / 480
Output Total 2124 1500 / 1500
Balance -205 / - -1020 / -1020
Physical Exam
-
General: Comfortable and Cachectic
HEENT: Negative Oxygen
Respiratory: Rhonchi (improving ); Negative Crackles
Cardiac: Regular Rhythm and S1/S2; Negative Murmur or Rub
GI: Soft, Nontender, Nondistended and Normal Bowel Sounds
Musculoskeletal: No Edema
Neuro: Awake, Alert, Oriented, No Motor Deficits and Nonfocal/Grossly Intact
Psych: Calm
Data Reviewed
-
Total Time Spent with Patient (in minutes): 55
[2024-04-22] MEDS: ROCEPHIN 1000 MG IV (13:05)
--- NOTE | 2024-04-22 14:13 | CM ---
Initiated insurance authorization with [facility]
TC to [phone], spoke with national account representative and told skilled rehab requests are fax in only.
Faxed clinicals to # [phone]
Accepting facility [facility] NPI# [id number]
Accepting MD- Dr Alarcon NPI# [id number]
Noted on fax sheet that a single case agreement will be needed and [facility] will need to contact Emanuel Chand from [facility] at [phone] to negotiate a rate.
Noted on fax that 27 facilities were unable to accept patient.
await [facility] authorization
[2024-04-22 15:13] VITALS: BP 128/80
[2024-04-22] MEDS: LOVENOX SC (17:10)
[2024-04-22] MEDS: ELAVIL 50 MG PO (22:24)
[2024-04-22 23:15] VITALS: BP 141/79
[2024-04-23] MEDS: ROBITUSSIN DM 10 ML PO ×5 (03:37→21:07)
[2024-04-23] MEDS: ROBITUSSIN DM PO (06:17)
[2024-04-23 07:49] VITALS: BP 140/82
[2024-04-23] MEDS: DELTASONE 30 MG PO (08:21)
[2024-04-23] MEDS: TOPROL XL 25 MG PO (08:21)
[2024-04-23] MEDS: LIPITOR 80 MG PO (08:21)
[2024-04-23] MEDS: ASPIR LOW (ENTERIC COATED) 81 MG PO (08:21)
[2024-04-23] MEDS: PROTONIX 40 MG PO (08:21)
[2024-04-23] MEDS: VITAMIN B-12 1000 MCG PO (08:22)
[2024-04-23] MEDS: LIDOCAINE 4% PATCH 1 PATCH TOPICAL ×2 (08:22→21:03)
[2024-04-23] MEDS: NEURONTIN 400 MG PO ×3 (08:22→21:07)
[2024-04-23] MEDS: ROXICODONE 5 MG PO (08:35)
--- NOTE | 2024-04-23 08:38 | CM ---
Spoke with Mally from [facility].
Referral received, [facility] is contracted with [facility].
Updated Mally that Sadia Espino is aware of the negotiation needed.
Mally will be able to approve the case at the contracted rate and wanted to know what the requested rate would be, she will reach out to Emanuel Dorsey from [facility] to see the requested rate.
Mally does not do the rate negotiation.
[2024-04-23 09:26] LABS: % Basophils 0.1 % (0-2); % Eosinophils 0.2 % (0-6); % Immature Granulocytes 0.5 % (0-0.5); % Lymphocytes 8.4 % (20.5-51.1); % Monocytes 5.7 % (1.7-9.3); % Neutrophils 85.1 % (42.2-75.2); Absolute Immature Granulocytes 0.1 10^3/uL (0-0.05); Absolute Lymphocytes 1.1 10^3/uL (1.2-3.4); Absolute Monocytes 0.7 10^3/uL (0.1-0.6); Hematocrit 31.9 % (39.0-52.0); Hemoglobin 10.4 g/dL (13.0-18.0); Mean Corp Hgb Conc. 32.6 g/dL (33.0-37.0); Mean Corpuscular Hgb 25.5 pg (27.0-31.0); Mean Corpuscular Volume 78.2 fL (80.0-94.0); Mean Platelet Volume 9.7 fL (7.4-10.4); Nucleated Red Blood Cells % 0 % (-); Platelet Count 482 10^3/uL (130-400); Red Blood Cell Count 4.08 10^6/uL (4.70-6.10); Red Cell Dist. Width 17.4 % (11.5-14.5); White Blood Cell Count 12.9 10^3/uL (4.8-10.8)
[2024-04-23 09:38] VITALS: BP 139/75; PULSE 106; O2SAT 93
[2024-04-23 10:07] LABS: Blood Urea Nitrogen 16 mg/dl (9-20); Calcium 8.4 mg/dl (8.4-10.2); Carbon Dioxide 25 mmol/L (22-30); Chloride 95 mmol/L (98-107); Estimated Creatinine Clearance 82 ml/min; Glucose 155 mg/dl (70-99); Potassium 3.9 mmol/L (3.5-5.1); Sodium 130 mmol/L (135-145); eGFR > 60.00
--- NOTE | 2024-04-23 10:30 | W.PN.HOSP.TC ---
Today's Communication/Plan
-
cont with steroids
encouarge po intake
po abx on dc
await placement
Assessment / Plan
Assessment / Plan
Exertional Dyspnea
-multifactorial from Influenza A infection / COPD flare up /RUL collapse from malignancy
-COVID negative
-chest x ray with the impression of large rounded density in the right hilar and suprahilar region, which likely represents lung cancer.Complete opacification right upper lobe, which is likely mainly due to postobstructive atelectasis. Correlating
with prior exams, and may also be a component of peripheral loculated pleural effusion.Subtle nodular parenchymal opacity within the right middle lobe and possibly within the right lower lobe, which may represent mild postobstructive pneumonitis.
-Echocardiogram showing EF of 55 to 60%. No major valvulopathy
-Repeat CXR showing stable findings.
-Ambulatory oxygen test above 95% - does not qualify for home o2
E. coli bacterial pneumonia
-Sputum sample sent [facility] gram negative bacilli growing E. coli and susceptibility noted
-Switch patient to ceftriaxone while here and p.o. antibiotics on discharge. Plan for 7-day course.
Acute COPD exacerbation
Tobacco abuse-quit smoking 3 weeks ago.
-Discontinue further IV Decadron,
-On oral prednisone therapy , slow taper.
-maintain on nebulizers/Bronchodilators.
Influenza A infection
Viral Sepsis-POA
- Finished 5 days of Tamiflu course
- Finished empiric doxycycline 5 days course
Generalized weakness likely secondary to newly diagnosed lung cancer/influenza A
-PT/OT recommended SNF rehab - CM working
Right upper lung undifferentiated carcinoma
-Pathology and Genetic testing results reviewed - undifferentiated carcinoma
-scheduled for treatment as outpatient
-family history of lung cancer.
-follows w/ Dr. [facility] [facility] and plan to get port-a-cath and eventual chemotherapy.
-oncology following.
Microcytic anemia
-start b12 supplementation.
-ferritin increased due to acute inflammatory process
-no acute bleeding
Back pain
-chronic lumbago, aggravated by cough
-already on steroids for pulm issues
-symptomatic care with heating pad/pain meds/topical nsaid cream
Left calf pain
-chronic? venous doppler negative for DVT
Hyponatremia likely dehydration
Underweight -dietary eval. -recent wt loss per family ?due to malignancy.
Coronary artery disease
Cardiac stents
Anxiety disorder
Hyperlipidemia
Essential Hypertension
DVT prophylaxis-Lovenox
CODE STATUS -Full code
PT/OT continues to recs SNF. CM aware. Await placement
Anticipated Discharge: Today
Subjective/Interval History
-
Date of Service: April 23, 2024
states of back pain
on room air
Objective Data
-
Labs:
Laboratory Results
04/23/24
09:08
WBC 12.9 H
Hgb 10.4 L
Hct 31.9 L
Plt Count 482 H
Sodium 130 L
Potassium 3.9
Chloride 95 L
Carbon Dioxide 25
BUN 16
Creatinine 0.7
Glucose 155 H
Calcium 8.4
Vital Signs:
Vital Signs
Temp Pulse Resp BP Pulse Ox
97.8 F 94 16 140/82 95
04/23/24 07:49 04/23/24 08:21 04/23/24 07:49 04/23/24 08:21 04/23/24 07:49
I&O
04/22/24 04/23/24 04/24/24
06:59 06:59 06:59
Intake Total 480 / 480 1080 / 1080
Output Total 1500 / 1500 2375 / 2375
Balance -1020 / -1020 -1295 / -1295
Physical Exam
-
General: Comfortable, Appears Chronically Ill and Cachectic
HEENT: Negative Oxygen
Respiratory: Rhonchi (improving ); Negative Crackles
Cardiac: Regular Rhythm and S1/S2; Negative Murmur or Rub
GI: Soft, Nontender, Nondistended and Normal Bowel Sounds
Musculoskeletal: No Edema
Neuro: Awake, Alert, Oriented, No Motor Deficits and Nonfocal/Grossly Intact
Psych: Calm
[2024-04-23] MEDS: DUONEB 3 ML INH ×2 (13:10→21:05)
[2024-04-23] MEDS: ROCEPHIN 1000 MG IV (14:57)
[2024-04-23] MEDS: STERILE WATER FOR INJECTION 10 ML IV (14:57)
[2024-04-23 15:51] VITALS: BP 131/75
[2024-04-23] MEDS: LOVENOX 40 MG SC (17:24)
--- NOTE | 2024-04-23 20:52 | PTCARENOTE ---
Pt with excessive SOB ambulating back from the bathroom at this time, pox 85-88% RA, O2 applied @ 2L.Lung sound coarse and scattered rhonchi throughout, SOB at rest and on exertion. RT was tiger texted, prn neb tx given.
[2024-04-23] MEDS: NEURONTIN PO (21:07)
[2024-04-23] MEDS: ELAVIL 50 MG PO (21:07)
[2024-04-23 23:24] VITALS: BP 121/82
[2024-04-24] MEDS: ROBITUSSIN DM PO (02:51)
[2024-04-24] MEDS: ROBITUSSIN DM 10 ML PO ×5 (05:11→21:18)
[2024-04-24 06:40] VITALS: BMI 17.9
[2024-04-24 06:50] LABS: Blood Urea Nitrogen 19 mg/dl (9-20); Calcium 8.5 mg/dl (8.4-10.2); Carbon Dioxide 31 mmol/L (22-30); Chloride 97 mmol/L (98-107); Estimated Creatinine Clearance 82 ml/min; Glucose 78 mg/dl (70-99); Potassium 4.8 mmol/L (3.5-5.1); Sodium 132 mmol/L (135-145); eGFR > 60.00
[2024-04-24 07:26] VITALS: BP 137/78
[2024-04-24] MEDS: LIPITOR 80 MG PO (07:45)
[2024-04-24] MEDS: DELTASONE 30 MG PO (07:45)
[2024-04-24] MEDS: ASPIR LOW (ENTERIC COATED) 81 MG PO (07:46)
[2024-04-24] MEDS: VITAMIN B-12 1000 MCG PO (07:46)
[2024-04-24] MEDS: PROTONIX 40 MG PO (07:46)
[2024-04-24] MEDS: TOPROL XL 25 MG PO (07:47)
[2024-04-24] MEDS: LIDOCAINE 4% PATCH 1 PATCH TOPICAL ×2 (07:50→21:16)
[2024-04-24] MEDS: NEURONTIN 400 MG PO ×3 (08:00→21:17)
--- NOTE | 2024-04-24 10:31 | W.PN.HOSP.TC ---
Today's Communication/Plan
-
IV abx while here
slow steroid taper
repeat ambulatory pulse o2
await placement
Assessment / Plan
Assessment / Plan
Exertional Dyspnea
-multifactorial from Influenza A infection / COPD flare up /RUL collapse from malignancy
-COVID negative
-chest x ray with the impression of large rounded density in the right hilar and suprahilar region, which likely represents lung cancer.Complete opacification right upper lobe, which is likely mainly due to postobstructive atelectasis. Correlating
with prior exams, and may also be a component of peripheral loculated pleural effusion.Subtle nodular parenchymal opacity within the right middle lobe and possibly within the right lower lobe, which may represent mild postobstructive pneumonitis.
-Echocardiogram showing EF of 55 to 60%. No major valvulopathy
-Repeat CXR showing stable findings.
-repeat ambulatory pulse oximetry.
E. coli bacterial pneumonia
-Sputum sample sent wt gram negative bacilli growing E. coli and susceptibility noted
-Switch patient to ceftriaxone while here and p.o. antibiotics on discharge. Plan for 7-day course.
Acute COPD exacerbation
Tobacco abuse-quit smoking 3 weeks ago.
-Discontinue further IV Decadron,
-On oral prednisone therapy , slow taper.
-maintain on nebulizers/Bronchodilators.
Influenza A infection
Viral Sepsis-POA
- Finished 5 days of Tamiflu course
- Finished empiric doxycycline 5 days course
Generalized weakness likely secondary to newly diagnosed lung cancer/influenza A
-PT/OT recommended SNF rehab - CM working
Right upper lung undifferentiated carcinoma
-Pathology and Genetic testing results reviewed - undifferentiated carcinoma
-scheduled for treatment as outpatient
-family history of lung cancer.
-follows w/ Dr[facility] and plan to get port-a-cath and eventual chemotherapy.
-oncology following.
Microcytic anemia
-start b12 supplementation.
-ferritin increased due to acute inflammatory process
-no acute bleeding
Back pain
-chronic lumbago, aggravated by cough
-already on steroids for pulm issues
-symptomatic care with heating pad/pain meds/topical nsaid cream
Left calf pain
-chronic? venous doppler negative for DVT
Hyponatremia likely dehydration
Underweight -dietary eval. -recent wt loss per family ?due to malignancy.
Coronary artery disease
Cardiac stents
Anxiety disorder
Hyperlipidemia
Essential Hypertension
DVT prophylaxis-Lovenox
CODE STATUS -Full code
PT/OT continues to recs SNF. CM aware. Await placement
Anticipated Discharge: Today
Subjective/Interval History
-
Date of Service: April 24, 2024
states the productive cough has decrease in frequency
felt sob with exertion yesterday
currently on room air. no chest pain or sob.
tolerating diet
Objective Data
-
Labs:
Laboratory Results
04/24/24
05:18
Sodium 132 L
Potassium 4.8
Chloride 97 L
Carbon Dioxide 31 H
BUN 19
Creatinine 0.7
Glucose 78
Calcium 8.5
Vital Signs:
Vital Signs
Temp Pulse Resp BP Pulse Ox
97.6 F 100 18 137/78 94
04/24/24 07:26 04/24/24 07:47 04/24/24 07:26 04/24/24 07:47 04/24/24 07:26
I&O
04/23/24 04/24/24 04/25/24
06:59 06:59 06:59
Intake Total 1080 / 1080 1140 / 1140
Output Total 2375 / 2375 2650 / 2650
Balance -1295 / -1295 -1510 / -1510
Physical Exam
-
General: Comfortable, Appears Chronically Ill and Cachectic
HEENT: Negative Oxygen
Respiratory: Rhonchi (improving ); Negative Crackles
Cardiac: Regular Rhythm and S1/S2; Negative Murmur or Rub
GI: Soft, Nontender, Nondistended and Normal Bowel Sounds
Musculoskeletal: No Edema
Neuro: Awake, Alert, Oriented, No Motor Deficits and Nonfocal/Grossly Intact
Psych: Calm
[2024-04-24] MEDS: DUONEB 3 ML INH ×2 (11:05→19:12)
[2024-04-24 12:09] VITALS: BP 132/80; PULSE 109; O2SAT 94
[2024-04-24] MEDS: ROCEPHIN 1000 MG IV (14:05)
[2024-04-24] MEDS: STERILE WATER FOR INJECTION 10 ML IV (14:06)
[2024-04-24 15:16] VITALS: BP 136/78
[2024-04-24] MEDS: SENOKOT-S 1 TABLET PO (17:51)
[2024-04-24] MEDS: LOVENOX 40 MG SC (17:51)
[2024-04-24] MEDS: ELAVIL 50 MG PO (21:17)
[2024-04-24] MEDS: FLUSH (NSS) 1 FLUSH IV (21:21)
[2024-04-24 23:17] VITALS: BP 119/67
[2024-04-25] MEDS: ROBITUSSIN DM PO (03:11)
[2024-04-25] MEDS: ROBITUSSIN DM 10 ML PO ×2 (05:13→08:56)
[2024-04-25 05:30] VITALS: BMI 17.9
[2024-04-25 07:02] VITALS: BP 117/78
[2024-04-25] MEDS: DELTASONE 30 MG PO (08:56)
[2024-04-25] MEDS: LIPITOR 80 MG PO (08:56)
[2024-04-25] MEDS: NEURONTIN 400 MG PO ×3 (08:56→21:41)
[2024-04-25] MEDS: ASPIR LOW (ENTERIC COATED) 81 MG PO (08:57)
[2024-04-25] MEDS: LIDOCAINE 4% PATCH 1 PATCH TOPICAL ×2 (08:57→21:40)
[2024-04-25] MEDS: VITAMIN B-12 1000 MCG PO (08:57)
[2024-04-25] MEDS: PROTONIX 40 MG PO (08:58)
[2024-04-25] MEDS: TOPROL XL 25 MG PO (08:58)
[2024-04-25 09:35] LABS: Blood Urea Nitrogen 18 mg/dl (9-20); Calcium 8.4 mg/dl (8.4-10.2); Carbon Dioxide 27 mmol/L (22-30); Chloride 97 mmol/L (98-107); Estimated Creatinine Clearance 95 ml/min; Glucose 71 mg/dl (70-99); Potassium 4.4 mmol/L (3.5-5.1); Sodium 132 mmol/L (135-145); eGFR > 60.00
--- NOTE | 2024-04-25 10:14 | W.PN.HOSP.TC ---
Today's Communication/Plan
-
awaiting placement
IV abx while here
cont with slow steroid taper
Assessment / Plan
Assessment / Plan
Exertional Dyspnea
-multifactorial from Influenza A infection / COPD flare up /RUL collapse from malignancy/deconditioning.
-COVID negative
-chest x ray with the impression of large rounded density in the right hilar and suprahilar region, which likely represents lung cancer.Complete opacification right upper lobe, which is likely mainly due to postobstructive atelectasis. Correlating
with prior exams, and may also be a component of peripheral loculated pleural effusion.Subtle nodular parenchymal opacity within the right middle lobe and possibly within the right lower lobe, which may represent mild postobstructive pneumonitis.
-Echocardiogram showing EF of 55 to 60%. No major valvulopathy
-Repeat CXR in am
-repeat ambulatory pulse oximetry.
E. coli bacterial pneumonia
-Sputum sample sent [facility] gram negative bacilli growing E. coli and susceptibility noted
-Switch patient to ceftriaxone while here and p.o. antibiotics on discharge. Plan for 7-day course.
Acute COPD exacerbation
Tobacco abuse-quit smoking 3 weeks ago.
-Discontinue further IV Decadron,
-On oral prednisone therapy decreased to 20mg in am. slow taper.
-maintain on nebulizers/Bronchodilators.
Influenza A infection
Viral Sepsis-POA
- Finished 5 days of Tamiflu course
- Finished empiric doxycycline 5 days course
Generalized weakness likely secondary to newly diagnosed lung cancer/influenza A
-PT/OT recommended SNF rehab - CM working
Right upper lung undifferentiated carcinoma
-Pathology and Genetic testing results reviewed - undifferentiated carcinoma
-scheduled for treatment as outpatient
-family history of lung cancer.
-follows w/ Dr[facility] [place] [facility] and plan to get port-a-cath and eventual chemotherapy.
-oncology following.
Microcytic anemia
-start b12 supplementation.
-ferritin increased due to acute inflammatory process
-no acute bleeding
Back pain
-chronic lumbago, aggravated by cough
-already on steroids for pulm issues
-symptomatic care with heating pad/pain meds/topical nsaid cream
Left calf pain
-chronic? venous doppler negative for DVT
Hyponatremia likely dehydration
Underweight -dietary eval. -recent wt loss per family ?due to malignancy.
Coronary artery disease
Cardiac stents
Anxiety disorder
Hyperlipidemia
Essential Hypertension
DVT prophylaxis-Lovenox
CODE STATUS -Full code
PT/OT continues to recs SNF. CM aware. Await placement
Anticipated Discharge: Today
Subjective/Interval History
-
Date of Service: April 25, 2024
states of feeling weak
states of sob with activity at times
tolerating diet
appetite is improving
seen on room air
Objective Data
-
Labs:
Laboratory Results
04/25/24
07:21
Sodium 132 L
Potassium 4.4
Chloride 97 L
Carbon Dioxide 27
BUN 18
Creatinine 0.6 L
Glucose 71
Calcium 8.4
Vital Signs:
Vital Signs
Temp Pulse Resp BP Pulse Ox
98.3 F 98 17 117/78 92
04/25/24 07:02 04/25/24 07:02 04/25/24 07:02 04/25/24 07:02 04/25/24 07:02
I&O
04/24/24 04/25/24 04/26/24
06:59 06:59 06:59
Intake Total 1140 / 1140 1620 / 1620
Output Total 2650 / 2650 1974 / 1974
Balance -1510 / -1510 -355 / -355
Physical Exam
-
General: Comfortable, Appears Chronically Ill and Cachectic
HEENT: Negative Oxygen
Respiratory: Rhonchi (improving ); Negative Crackles
Cardiac: Regular Rhythm and S1/S2; Negative Murmur or Rub
GI: Soft, Nontender, Nondistended and Normal Bowel Sounds
Musculoskeletal: No Edema
Neuro: Awake, Alert, Oriented, No Motor Deficits and Nonfocal/Grossly Intact
Psych: Calm
--- NOTE | 2024-04-25 10:28 | CM ---
Call to Ngoc Rob /Conference And Event Organiser at [facility] regarding if she had heard an update on the single case agreement. She was not available, vm left requesting return call.
--- NOTE | 2024-04-25 10:30 | CM ---
Patient seen at bedside.
spoke with sister in law yesterday & updated
[employer] negotiations - Emanuel from [facility] speaking with insurance company
[employer] called Jessica floresison & she will call CM back.
PLAN: SNF, await determination of negotiations between [facility] & insurance company
[2024-04-25] MEDS: ROCEPHIN 1000 MG IV (13:42)
[2024-04-25] MEDS: STERILE WATER FOR INJECTION 10 ML IV (13:42)
[2024-04-25] MEDS: DUONEB 3 ML INH ×2 (13:58→20:00)
--- NOTE | 2024-04-25 14:53 | CM ---
Addendum entered by Peggy Oconnor 04/25/24 16:41:
TC from Jessica at [facility], facility and [facility] have negotiated rate and they can accept patient tomorrow.
[facility] approved skilled rehab at [facility]- rate negotiated between [facility] and facility.
Auth#[id number]
Approved start date 04/23/24-05/23/24, LCD 05/22/24
fax updates to [phone]
phone # [phone]
Original Note:
TC from Ingris at [facility] [phone] requesting an update if we heard anything re rate adjusment.
Per [employer] they will be meeeting today and will f/u.
[2024-04-25 15:13] VITALS: BP 134/75; PULSE 107; O2SAT 94
[2024-04-25 15:30] VITALS: BP 106/69
--- NOTE | 2024-04-25 16:44 | CM ---
Patient seen at bedside.
IMM explained & signed. In chart
Authorization obtained for [facility]
tt hospitalist, CM spoke with sister in law Madelyn & updated
transportation forms on chart
PLAN: [facility] tomorrow 04/26
[facility]
Report #: [phone]
Fax #: [phone]
transportation forms on chart
[2024-04-25] MEDS: LOVENOX SC (17:14)
[2024-04-25] MEDS: ELAVIL 50 MG PO (21:41)
[2024-04-25 23:00] VITALS: BP 122/79
[2024-04-26 06:00] VITALS: BMI 17.7
[2024-04-26 07:00] VITALS: BP 127/63
[2024-04-26] MEDS: NEURONTIN 400 MG PO (09:14)
[2024-04-26] MEDS: VITAMIN B-12 1000 MCG PO (09:14)
[2024-04-26] MEDS: ASPIR LOW (ENTERIC COATED) 81 MG PO (09:14)
[2024-04-26] MEDS: DELTASONE 20 MG PO (09:14)
[2024-04-26] MEDS: PROTONIX 40 MG PO (09:14)
[2024-04-26] MEDS: TOPROL XL 25 MG PO (09:15)
[2024-04-26] MEDS: LIPITOR 80 MG PO (09:15)
[2024-04-26] MEDS: LIDOCAINE 4% PATCH 1 PATCH TOPICAL (09:15)
--- NOTE | 2024-04-26 11:08 | W.PN.HOSP.TC ---
Today's Communication/Plan
-
snf
po steroids/taper
Assessment / Plan
Assessment / Plan
Exertional Dyspnea
-multifactorial from Influenza A infection / COPD flare up /RUL collapse from malignancy/deconditioning.
-COVID negative
-chest x ray with the impression of large rounded density in the right hilar and suprahilar region, which likely represents lung cancer.Complete opacification right upper lobe, which is likely mainly due to postobstructive atelectasis. Correlating
with prior exams, and may also be a component of peripheral loculated pleural effusion.Subtle nodular parenchymal opacity within the right middle lobe and possibly within the right lower lobe, which may represent mild postobstructive pneumonitis.
-Echocardiogram showing EF of 55 to 60%. No major valvulopathy.
E.coli bacterial pneumonia
-Sputum sample sent wt gram negative bacilli growing E. coli and susceptibility noted
-Switch patient to ceftriaxone while here and p.o. antibiotics on discharge. Plan for 7-day course.
Acute COPD exacerbation
Tobacco abuse-quit smoking 3 weeks ago.
-Discontinue further IV Decadron,
-On oral prednisone therapy decreased to 20mg in am. slow taper.
-maintain on nebulizers/Bronchodilators.
Influenza A infection
Viral Sepsis-POA
-Finished 5 days of Tamiflu course
-Finished empiric doxycycline 5 days course
Generalized weakness likely secondary to newly diagnosed lung cancer/influenza A
-PT/OT recommended SNF rehab - CM working
Right upper lung undifferentiated carcinoma
-Pathology and Genetic testing results reviewed - undifferentiated carcinoma
-scheduled for treatment as outpatient
-family history of lung cancer.
-follows w/ [facility] and plan to get port-a-cath and eventual chemotherapy.
-oncology following.
Microcytic anemia
-start b12 supplementation.
-ferritin increased due to acute inflammatory process
-no acute bleeding
Back pain
-chronic lumbago, aggravated by cough
-already on steroids for pulm issues
-symptomatic care with heating pad/pain meds/topical nsaid cream
Left calf pain
-chronic? venous doppler negative for DVT
Hyponatremia likely dehydration
Underweight -dietary eval. -recent wt loss per family ?due to malignancy.
Coronary artery disease
Cardiac stents
Anxiety disorder
Hyperlipidemia
Essential Hypertension
OCD with cleaning
DVT prophylaxis-Lovenox
CODE STATUS -Full code
PT/OT continues to recs SNF. CM aware. Await placement
Discussed with patient [id number] Madelyn in details. All questions answered to her satisfaction. Explained to Madelyn that patient is high risk for readmission as with multiple chronic conditions and severely deconditioned due to pneumonia, COPD, lung
malignancy, tobacco abuse, weight loss etc. Madelyn understand and wants to give patient a chance to get him to rehab and then to chemoradiation. All questions answered to her satisfaction. More than 50 minutes phone discussion. Madelyn agreed for
discharge today.
More than 30 minutes spent in discharge including
Final examination of the patient
Summarizing hospital stay
Instructions for continuing care to all relevant caregivers
Preparation of discharge records, prescriptions, and referral forms
Total time spent (in minutes): 55
Anticipated Discharge: Today
Subjective/Interval History
-
Date of Service: April 26, 2024
Remains afebrile
On room air
Objective Data
-
Labs:
Laboratory Results
04/26/24
07:33
Sodium Cancelled
Potassium Cancelled
Chloride Cancelled
Carbon Dioxide Cancelled
BUN Cancelled
Creatinine Cancelled
Glucose Cancelled
Calcium Cancelled
Vital Signs:
Vital Signs
Temp Pulse Resp BP Pulse Ox
97.8 F 102 18 127/63 96
04/26/24 07:00 04/26/24 07:00 04/26/24 07:00 04/26/24 07:00 04/26/24 07:00
I&O
04/25/24 04/26/24 04/27/24
06:59 06:59 06:59
Intake Total 1620 / 1620 1200 / 1200
Output Total 1974 1800 / 1800
Balance -355 / -355 -600 / -600
Physical Exam
-
General: Appears Chronically Ill and Cachectic
HEENT: Negative Oxygen
Respiratory: Rhonchi (improving ); Negative Crackles
Cardiac: Regular Rhythm and S1/S2; Negative Murmur or Rub
GI: Soft, Nontender, Nondistended and Normal Bowel Sounds
Musculoskeletal: No Edema
Neuro: Awake, Alert, Oriented, No Motor Deficits and Nonfocal/Grossly Intact
Psych: Calm
--- NOTE | 2024-04-26 11:40 | W.DCSUMMARY ---
Discharge Summary
Discharge Data
Date of Admission: 04/10/24
Date of Discharge: 04/26/24
-
Pending Results: No
Hospital Course
64 male past medical history of severe tobacco abuse, COPD, anemia, coronary artery disease, severe anxiety, obsessive-compulsive disorder, primary hypertension, hyperlipidemia, recent diagnosis of lung cancer is presenting from home with shortness
of breath. Patient was found to be influenza A positive and completed Tamiflu treatment. Patient was also found in COPD exacerbation and was started on aggressive IV steroids. Pulmonary oncology was consulted. IV steroids were slowly transition
to p.o. prednisone. ECHO showing EF of 55 to 60%. No major valvulopathy. Patient with increased sputum production and sample was sent to lab. Found to E. coli bacterial pneumonia. Patient was started on IV ceftriaxone with transition to p.o.
antibiotics. Oncology was consulted and recommended patient to improvement in performance status and then follow-up [facility] for outpatient chemo and radiation. Patient was eval by physical and Occupational Therapy. Patient with significantly low
pulmonary reserve and dyspneic with exertion. Patient was encouraged to increase his p.o. intake. Patient family was updated throughout hospitalization. Plan will be for discharge to intermediate facility with outpatient oncology follow-up for
chemo and radiation.
Discharge Plan
-
Patient Disposition: Senior Care/SNF
Discharge Diagnosis/Procedures: Influenza A infection
COPD exacerbation
E. coli bacterial pneumonia
Generalized weakness
Microcytic anemia
Back pain
Condition: Fair
Diet: Regular
Additional Diets: Encourage Ensure TID. F/u with nutrition at SNF.
Activity: With assistance and As tolerated
Driving Restrictions: Not until seen by your Dr
Referrals:
Shahla Fontana MD [Active] - in three to four weeks
Carrie Newsome MD [Family Provider] - in less than 1 week
Julianne Benjamin DO [Active] - None
Prescriptions:
New
ipratropium-albuterol 0.5 mg-3 mg(2.5 mg base)/3 mL Solution For Nebulization
3 ml inhalation R Q4HPRN PRN (Reason: shortness of breath) 30 Days Qty: 180 0RF
lidocaine 4 % Adhesive Patch,Medicated
1 patch topical DAILY@2000 Qty: 15 0RF
Rx Instructions:
apply lower back
dextromethorphan-guaifenesin 10-100 mg/5 mL Syrup
10 ml PO Q4H PRN (Reason: cough) Qty: 237 0RF
pantoprazole 40 mg Tablet,Delayed Release (Dr/Ec)
40 mg PO DAILY 30 Days Qty: 30 0RF
cyanocobalamin (vitamin B-12) [Vitamin B-12] 1,000 mcg Tablet
1,000 mcg PO DAILY 30 Days Qty: 30 0RF
cefdinir 300 mg capsule
300 mg PO Q12H Qty: 6 0RF
prednisone 10 mg Tablet
See Rx Instructions .ROUTE .COMPLEX Qty: 15 0RF
Rx Instructions:
Take By Mouth:
20 mg daily x5 days, 10 mg daily x5 days.
Continued
atorvastatin [Lipitor] 80 mg Tablet
80 mg PO HS
amitriptyline 50 mg Tablet
50 mg PO HS
metoprolol succinate [Toprol XL] 25 mg Tablet Extended Release 24 Hr
25 mg PO DAILY
gabapentin 400 mg Tablet
400 mg PO TID
aspirin 81 mg Tablet,Delayed Release (Dr/Ec)
81 mg PO DAILY
Anoro Ellipta 62.5-25 mcg/actuation Blister With Device
1 inh INHALATION R DAILY
Discontinued
Ex-Lax 90 mg Tablet,Chewable
90 mg PO DAILYPRN PRN (Reason: constipation)
levalbuterol HCl 1.25 mg/3 mL Solution For Nebulization
1.25 mg INHALATION R Q6HPRN PRN (Reason: sob)
Discharge Orders:
Discharge Patient (As Directed); Ordered 04/26/24
Ordered By: Jamarcus Sweet
Discharge Date and Time
Print Language: YI
[2024-04-26] MEDS: DUONEB 3 ML INH (12:05)
[2024-04-26 13:01] VITALS: BP 127/79
[2024-04-26] MEDS: STERILE WATER FOR INJECTION 10 ML IV (13:46)
[2024-04-26] MEDS: ROCEPHIN 1000 MG IV (13:47)
== END 2024-04-26 15:39 | DRG 871 ==
LOC: 2 NORTH 22:23
PROVIDERS: Hospitalist; Physician Assistant; Registered Nurse; ADMITTING PHYSICIAN Internal Medicine; ATTENDING PHYSICIAN Hospitalist; CONSULT PHYSICIAN Internal Medicine Critical Care Medicine; EMERGENCY PHYSICIAN Student in an Organized Health Care Education/Training Program; FAMILY PHYSICIAN Emergency Medicine; OTHER PHYSICIAN Internal Medicine Hematology & Oncology
DX: A41.9 Sepsis, unspecified organism (principal); J10.08 Influenza due to other identified influenza virus with other specified pneumonia; J96.01 Acute respiratory failure with hypoxia; J18.9 Pneumonia, unspecified organism; J44.1 Chronic obstructive pulmonary disease with (acute) exacerbation; C34.11 Malignant neoplasm of upper lobe, right bronchus or lung; E87.1 Hypo-osmolality and hyponatremia; R64 Cachexia; Z68.1 Body mass index [BMI] 19.9 or less, adult; J98.11 Atelectasis; E78.00 Pure hypercholesterolemia, unspecified; I10 Essential (primary) hypertension; F41.9 Anxiety disorder, unspecified; F32.A Depression, unspecified; I25.10 Atherosclerotic heart disease of native coronary artery without angina pectoris; Z82.49 Family history of ischemic heart disease and other diseases of the circulatory system; F17.200 Nicotine dependence, unspecified, uncomplicated; D50.9 Iron deficiency anemia, unspecified; M54.9 Dorsalgia, unspecified
CPT/HCPCS: 71045; 71046; 80048; 80053; 82607; 82728; 82746; 82962; 83540; 83550; 84145; 84484; 85025; 85027; 87070; 87077; 87186; 87205; 87502; 87811; 93005; 93306; 93971; 94640; 96361; 96374; 97116; 97166; 97530; 97535; 99285; Q9950

== ENCOUNTER 2024-05-02 07:57 | Inpatient (IN) | payer OTHER, SELFPAY ==
[2024-04-29] VITALS (9 sets, daily range): BP systolic 109–132; BP diastolic 62–88; BMI 19.2; BMI 18.7
--- NOTE | 2024-04-29 08:59 | ED.GENMED ---
History of Present Illness
General
Chief Complaint: Chest Pain
Source: patient
Exam Limitations: none
Time Seen by Provider: 04/29/24 08:06
Nursing documentation reviewed up to this point in time: agreed with
History of Present Illness
History of Present Illness:
64-year-old male with a past medical history of hypertension, hyperlipidemia, CAD, COPD, lung cancer who presents to the emergency department from [facility] for evaluation of chest pain and shortness of breath. Patient has been at [facility]
for rehab due to deconditioning and weakness in the setting of recent influenza and pneumonia. He was admitted to this hospital 04/10/2024 with influenza, COPD exacerbation, pneumonia. Discharged to [facility] 04/26/2024 and has been there since.
He has a notable history of lung cancer that was recently diagnosed and due to his recent acute illness has not yet started undergoing treatment. He presents today to the emergency room for evaluation of chest pain and shortness of breath. He
says his symptoms started last night; he says staff gave him a breathing treatment and symptoms improved transiently to the point that he was able to get to sleep but he woke up after about an hour with severe pain in his chest and back. EMS called
to bring him to the hospital this morning with persistent symptoms. He did get nitroglycerin from EMS as well as a full dose aspirin; he says chest pain has improved and he is chest pain-free now. He still has significant shortness of breath. He
has chronic cough he says unchanged. No swelling in the legs. He denies any nausea, vomiting, diaphoresis, abdominal pain. He denies any recent fever or chills. He denies any other complaints. Review of his medication list shows no blood
thinners. He was discharged on a prednisone taper x 10 days and is still in the midst of this taper; he is still on cefdinir for his pneumonia, stop date 05/02/2024.
Past History
Past History
ED Past Medical History: CAD, Cancer (Lung CA), COPD, HTN, Hypercholesterolemia, GA (X 2) and Other (Back pain, 2 herniated disc, Anemia, )
ED Past Surgical History: Cardiac (Cardiac stent)
Social History
Tobacco: Former smoker
Drug: None
Personal: Single
Living: alone
Employment: Not employed
Review of Systems
Review of Systems
All Other Systems: ROS reviewed and negative except as documented in HPI and ROS
Constitutional: Denies fever or chills
EENT: Denies sore throat
Respiratory: Reports cough and trouble breathing
Cardiac: Reports chest pain; Denies palpitations
ABD/GI: Denies abdominal pain, nausea or vomiting
: Denies flank pain
Musculoskeletal: Denies edema, neck pain or back pain
Neurological: Denies dizzy or headache
Phy Exam
Physical Exam
Physical Exam:
General: Awake, alert, oriented x3
Head: Normocephalic, atraumatic
Eyes: Conjunctiva normal, EOMI
Throat: Airway intact, handling secretions
Neck: Trachea midline, no JVD
Lungs: Patient is tachypneic with respiratory rate of 30; he is conversationally dyspneic speaking in 2 or 3 word sentences; he has scattered expiratory wheezing no focal rales or rhonchi appreciated
Heart: Tachycardia with regular rhythm, no murmurs, gallops, or rubs
Abd: Soft, non distended, nontender
Neuro: No gross deficits
Extremities: No edema in extremities, equal pulses in all extremities
Scores
Heart Failure Risk
Heart Failure Risk Score: Not Applicable
Heart Score for Chest Pain Patients
STEMI patient?: Not applicable
Withdrawal Assessment of Alcohol
Withdrawal Assessment Completed?: Not applicable
Sepsis
Sepsis Screening
Sepsis Assessment: Sepsis Ruled Out
Sepsis Screen
Sepsis Screen: Sepsis Ruled Out
Date: 04/29/24
Time: 15:55
Course
Orders/Labs/Results
Orders:
Orders
04/29/24 08:10
Electrocardiogram (*1) Urgent
Reason for Study: Chest Pain
EKG- Treatment ONCE
CR Chest - 2 Views Urgent
Comment:
Reason For Exam: chest pain
04/29/24 09:08
CT Chest PE Study Urgent
Comment:
Reason For Exam: SOB, tachypnea, CP and back pain; h/o lung ca
Ipratropium/Albuterol Sulfate [Duoneb] 3 ml INH R NOW ONE
04/29/24 09:13
Diphenhydramine [Benadryl] 50 mg IV NOW STA
Hydrocortisone Sod Succinate [Solu-Cortef] 200 mg IV NOW STA
04/29/24 09:22
Case Management Consult ONCE
Case Management Consult: Discharge Planning
04/29/24 09:36
Complete Blood Count/With Diff Urgent
Comprehensive Metabolic Panel Urgent
D-Dimer Urgent
Troponin I Urgent
04/29/24 Lunch
Cholesterol Lowering
Cholesterol Lowering: Sodium, 2 Gram
04/29/24 11:32
Troponin I Urgent
04/29/24 13:16
Admit/Transfer Patient As Directed
Co-Sign Provider:
Level of Care: Observation services
Assign to:: Telemetry
Physician / Group: [email or web address]
Diagnosis: CP and SOB
Reason for Telemetry: Chest Pain syndromes
Date to Stop Telemetry: 05/01/24
Time to Stop Telemetry: 11:00
04/29/24 13:18
Code Status As Directed
Resuscitation Status: Full Code
04/29/24 15:50
Electrocardiogram (*1) Q6H
Reason for Study: Chest Pain
Comment: at admission and Q3H for total of 3, to be done with each troponin
Troponin I Q3H
Comment: at admit & Q3H for 3 total including ED draws, obtain ECG with each level
Acetaminophen [Tylenol] 650 mg PO Q6HPRN PRN
Bisacodyl [Dulcolax] 10 mg RECTAL DAILYPRN PRN
Guaifenesin/Dextromethorphan [Robitussin Dm] 10 ml PO Q4HPRN PRN
Ipratropium/Albuterol Sulfate [Duoneb] 3 ml INH R Q4HPRN PRN
Ipratropium/Albuterol Sulfate [Duoneb] 3 ml INH R TID
Prednisone [Deltasone] See Dose Instructions PO .COMPLEX
04/29/24 15:50
Glycohemoglobin (HgbA1c) Routine
Activity As Directed
Activity Level: With Assistance
INT (Intravenous Needle Therapy) As Directed
Comment: maintain peripheral IV access
Vital Signs As Directed
Frequency: q4h
Weight As Directed
Frequency: Daily
Ot Eval And Treat Routine
Pt Eval And Treat Routine
Activity Level: With Assistance
DX Deep Vein Thrombosis Video Routine
04/29/24 16:00
gabapentin 400 mg PO TID
04/29/24 18:00
Enoxaparin Sodium [Lovenox] 40 mg SC QPM
04/29/24 18:50
Troponin I Q3H
Comment: at admit & Q3H for 3 total including ED draws, obtain ECG with each level
04/29/24 21:50
Electrocardiogram (*1) Q6H
Reason for Study: Chest Pain
Comment: at admission and Q3H for total of 3, to be done with each troponin
Troponin I Q3H
Comment: at admit & Q3H for 3 total including ED draws, obtain ECG with each level
04/29/24 22:00
Amitriptyline [Elavil] 50 mg PO HS
Atorvastatin [Lipitor] 80 mg PO HS
04/30/24 03:50
Electrocardiogram (*1) Q6H
Reason for Study: Chest Pain
Comment: at admission and Q3H for total of 3, to be done with each troponin
04/30/24 06:00
Complete Blood Count/No Diff IN AM
Comprehensive Metabolic Panel IN AM
04/30/24 08:00
Aspirin Low Dose EC [Aspir Low (Enteric Coated)] 81 mg PO DAILY
Cyanocobalamin [Vitamin B-12] 1,000 mcg PO DAILY
Metoprolol Xl [Toprol Xl] 25 mg PO DAILY
Pantoprazole [Protonix] 40 mg PO DAILY
umeclidinium-vilanterol [Anoro Ellipta] 1 inh INH R DAILY
05/01/24 11:00
DC Protocol for Telemetry ONCE
Abnormal Lab Results
04/29/24
09:36
WBC 11.3 H 10^3/uL
(4.8-10.8)
RBC 4.47 L 10^6/uL
(4.70-6.10)
Hgb 11.2 L g/dL
(13.0-18.0)
Hct 36.3 L %
(39.0-52.0)
MCH 25.1 L pg
(27.0-31.0)
MCHC 30.9 L g/dL
(33.0-37.0)
RDW 19.0 H %
(11.5-14.5)
Plt Count 479 H 10^3/uL
(130-400)
Abs Immat Gran (auto) 0.1 H 10^3/uL
(0-0.05)
Absolute Neuts (auto) 9.8 H 10^3/uL
(1.4-6.5)
Absolute Lymphs (auto) 0.9 L 10^3/uL
(1.2-3.4)
Immature Gran % 0.9 H %
(0-0.5)
Neutrophils % 86.4 H %
(42.2-75.2)
Lymphocytes % 7.7 L %
(20.5-51.1)
D-Dimer 2.46 H ug/mlFEU
(0.00-0.50)
Calcium 8.3 L mg/dl
(8.4-10.2)
ALT 92 H U/L
(0-50)
Alkaline Phosphatase 127 H U/L
(38-126)
Albumin 3.0 L g/dl
(3.5-5.0)
04/29/24 09:36
04/29/24 09:36
Vital Signs
Initial and Last Documented VS:
Initial Vital Signs
Pulse Resp
106 26
04/29/24 08:04 04/29/24 08:04
Last Documented Vital Signs
Temp Pulse Resp BP Pulse Ox
36.8 C 98 23 128/78 95
04/29/24 08:07 04/29/24 15:30 04/29/24 15:30 04/29/24 11:00 04/29/24 11:00
MDM/Problems Addressed
Differential Diagnosis Includes:
Worsening pneumonia, COPD exacerbation, pulmonary embolism, ACS, CHF
MDM/Problems Addressed:
64-year-old male who had a recent prolonged admission for influenza and pneumonia, COPD exacerbation presents to the emergency room from rehab for chest pain and shortness of breath that started this morning. He arrives to us tachycardic and
tachypneic but not hypoxic. Physical exam as above. Will place an IV check labs including a CBC and a CMP, troponin, proBNP. Will check chest x-ray�if nondiagnostic we will proceed with CTA to rule out pulmonary embolism given his lung cancer
history and recent hospitalization. His EKG showed no STEMI. Monitor on telemetry. Treat with Duoneb. Reassess after the above.
Chest x-ray shows lung mass but no acute change from prior. Will check CTA as above.
Labs reviewed: CBC shows leukocytosis to 11.3, stable anemia. CMP no clinically significant abnormalities. Troponin negative x [address] chest shows no PE, lung mass but no other acute pathology. Clinical reassessment patient says chest
pain has improved. Still feels short of breath. Could be cancer related as he does have obstruction of the right upper lobe secondary to mass. Suspect likely some element of COPD exacerbation as well. Furthermore patient and daughter are
unwilling to go back to [facility] as they were not pleased with their care. Case management consulted unable to place today. Will admit for trending of troponins, monitoring of symptoms, steroids and nebs and ultimately placement. Discussed
with hospitalist.
Chronic conditions affecting care:
COPD, lung cancer, CAD
*Radiology
Radiology exam reviewed: preliminary read by ED provider and radiology read reviewed
*Pulse Oximetry
Patient hypoxic: no (Patient arrived on 2 L nasal cannula but saturation is 97% on room air here)
*EKG
Interpreted by ED Provider?: Yes
Comparison EKG: no changes
Heart Rate: 102
Rate: tachycardiac
Rhythm: sinus and sinus tachycardia
[place]: normal axis
Interval: normal interval
QRS Pattern: left vent hypertrophy
Ischemia: other (Inferior infarct age undetermined)
*Critical Care Note
Total Time (30-74mins, 75-104mins- exclusive of procedures): Not Applicable
Data Reviewed
Review of Other/Old Records Reveals: Labs, Records and Discharge Summary
Source: patient, records, ambulance crew and group home records
Patient Management
Discussion with other providers: Hospitalist (Discussed with hospitalist)
Escalation/DeEscalation of care consider admission/obs:
Admission indicated
ED Attending Note
-
Portions of this chart may have been created with voice recognition software.� Occasional wrong word or��sound alike� substitutions may have occurred due to the inherent limitations of voice recognition software.
Discharge Plan
Departure
Patient Disposition: Admit
Date of Disposition: 04/29/24
Time of Disposition: 12:45
Admit to doctor: Jyoti
Presentation/result/management discussed w/ accepting MD/DO: Hospitalist
Discharge Problem:
COPD exacerbation, Chest pain
Interventions
Interventions:
*Risk Screen - Suicide Last Done: 04/29/24 08:07
*General Assessment Last Done: 04/29/24 08:07
*Neglect/Abuse Screening Last Done: 04/29/24 08:07
ED- Fall Risk Assessment Last Done: 04/29/24 08:20
*ED COVID-19 Vaccine History Last Done: 04/29/24 08:07
*Nursing Disposition Last Done: 04/29/24 15:32
ED- Cardiac Assessment Last Done: 04/29/24 08:20
Discharge Date and Time
Discharge Date/Time: 04/29/24 15:43
[2024-04-29] MEDS: DUONEB 3 ML INH ×2 (09:32→20:03)
[2024-04-29] MEDS: SOLU-CORTEF 200 MG IV (09:43)
[2024-04-29] MEDS: BENADRYL 50 MG IV (09:43)
[2024-04-29 09:47] LABS: % Basophils 0.1 % (0-2); % Eosinophils 0.3 % (0-6); % Immature Granulocytes 0.9 % (0-0.5); % Lymphocytes 7.7 % (20.5-51.1); % Monocytes 4.6 % (1.7-9.3); % Neutrophils 86.4 % (42.2-75.2); Absolute Immature Granulocytes 0.1 10^3/uL (0-0.05); Absolute Lymphocytes 0.9 10^3/uL (1.2-3.4); Absolute Monocytes 0.5 10^3/uL (0.1-0.6); Absolute Neutrophils 9.8 10^3/uL (1.4-6.5); Hematocrit 36.3 % (39.0-52.0); Hemoglobin 11.2 g/dL (13.0-18.0); Mean Corp Hgb Conc. 30.9 g/dL (33.0-37.0); Mean Corpuscular Hgb 25.1 pg (27.0-31.0); Mean Corpuscular Volume 81.2 fL (80.0-94.0); Nucleated Red Blood Cells % 0 % (-); Platelet Count 479 10^3/uL (130-400); Red Blood Cell Count 4.47 10^6/uL (4.70-6.10); White Blood Cell Count 11.3 10^3/uL (4.8-10.8)
[2024-04-29 09:59] LABS: D-Dimer 2.46 ug/mlFEU (0.00-0.50)
[2024-04-29 10:01] LABS: ALT (SGPT) 92 U/L (0-50); AST (SGOT) 40 U/L (17-59); Alkaline Phosphatase 127 U/L (38-126); Blood Urea Nitrogen 19 mg/dl (9-20); Calcium 8.3 mg/dl (8.4-10.2); Carbon Dioxide 28 mmol/L (22-30); Chloride 104 mmol/L (98-107); Estimated Creatinine Clearance 88 ml/min; Glucose 95 mg/dl (70-99); Potassium 4.2 mmol/L (3.5-5.1); Sodium 136 mmol/L (135-145); Total Bilirubin 0.4 mg/dl (0.2-1.3); Total Protein 6.6 g/dl (6.3-8.2); eGFR > 60.00
[2024-04-29 10:13] LABS: Troponin I 0.017 ng/ml
--- NOTE | 2024-04-29 11:21 | CM ---
Addendum entered by Arlene Link RN 04/29/24 12:08:
HONEY spoke with Jessica from [facility]. She stated that [facility] and [facility] will consider patient for placement.
Original Note:
Honey reviewed medical records. HONEY met with patient and sister in law in room. Sister in law was tearful and anxious. She stated that she felt the care at [facility] was concerning including missed nebulizer treatments and patient being given a
food tray that was leftovers from another patient. Sister in law also felt that patient's nurse was unable to treat patient effectively and panicked.
Patient's sister does not want patient to return to [facility].
HONEY spoke with Trista Howe for update on recent discharge planning history. Patient's insurance required a single payor agreement with his insurance for placement at [facility]. Multiple facilities had declined patient.
HONEY spoke with Jessica from [facility] stating patient's family had multiple concerns and does not want to return. Jessica will discuss possible admission to another [facility].
HONEY will await call back.
[2024-04-29 12:37] LABS: Troponin I 0.016 ng/ml
--- NOTE | 2024-04-29 13:12 | HPS.HSE ---
Family Physician
-
Family Physician: Dylon Gao
Chief Complaint
-
CP and SoB
History of Present Illness
64M from [facility] @ [facility] CAD, HLD, HTN, Lung CA seen at ER:
- for evaluation of chest pain and shortness of breath.
-has been at [facility] for rehab due to deconditioning and weakness in the setting of recent influenza and pneumonia. - He was admitted to this hospital 04/10/2024 with influenza, COPD exacerbation, pneumonia.
- Discharged to [facility] 04/26/2024 and has been there since.
- Chest pain and shortness of breath started last night; he says staff gave him a breathing treatment and symptoms improved transiently to the point that he was able to get to sleep but he woke up after about an hour with severe pain in his chest
and back.
- EMS called to bring him to the hospital this morning with persistent symptoms.
- did get nitroglycerin from EMS as well as a full dose aspirin; he says chest pain has improved
- chest pain-free now
- has significant shortness of breath.
- chronic cough he says unchanged.
Medical History
Past Medical History
Past Medical History: Reports Other
Additional Past Medical History:
Depression
Colon polyps
MRI
Degenerative disc disease
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
Lipidemia cyst
Hyperlipidemia
Right testicular pain ischemic cardiomyopathy
COPD
Hypertension
Anxiety
CVA
Hydrocele
Sacral dysfunction
CAD
Past Surgical History: Reports Other
Additional Past Surgical History:
Cardiac stent
Social History
Tobacco: Former Smoker
Alcohol: None
Drug: None
Living: With Family
Family History
Family History: Not pertinent
Allergies / Home Medications
Allergies reflects when Allergies were last updated in [employer].
Home Medications with original date entered in [employer]
Allergy/Medication List:
Allergies
Allergy/AdvReac Type Severity Reaction Status Date / Time
Iodinated Contrast Media Allergy Mild Hives Verified 04/10/24 17:14
onion Allergy Rash Verified 04/10/24 17:14
Home Medications
amitriptyline 50 mg tablet 50 mg PO HS 03/07/24
aspirin 81 mg tablet 81 mg PO DAILY 03/07/24
atorvastatin 1 tab PO DAILY 03/07/24
gabapentin 1 tab PO BID 03/07/24
ibuprofen 800 mg tablet 800 mg PO BID 03/07/24
metoprolol succinate 1 tab PO DAILY 03/07/24
ondansetron 4 mg disintegrating tablet 4 mg PO Q8H PRN nausea and vomiting #10 tabs 03/27/24
Review of Systems
-
Constitutional: Reports No Symptoms, Fever, Fatigue and Chills
EENT: Reports No Symptoms
Respiratory: Reports Trouble Breathing
Cardiac: Reports Chest Pain
Abdomen/GI: Reports No Symptoms
: Reports No Symptoms
Musculoskeletal: Reports No Symptoms
Skin: Reports No Symptoms
Neurological: Reports Headache and Weakness
Endocrine: Reports No Symptoms
Hematologic/Lymphatic: Reports No Symptoms
Psych: Reports No Symptoms
Physical Exam
Vital Signs
Vital Signs
Temp Pulse Resp BP Pulse Ox
98.3 F 104 28 111/70 96
04/29/24 08:07 04/29/24 08:30 04/29/24 08:30 04/29/24 08:07 04/29/24 08:30
Physical Exam
General: Well Developed, Well Nourished and No Apparent Distress
HEENT: NormoCephalic, Moist mucous membranes and Atraumatic
Respiratory: Wheezes
Cardiac: S1/S2 and Regular Rhythm; No Murmur or Rub
GI: Soft, Non Tender, Non Distended and Normal Bowel Sounds; No Organomegaly
Rectal: Deferred by Provider
Musculoskeletal: No Clubbing, No Cyanosis and No Edema
Skin: No Rash
Neuro: AO x 3 and Nonfocal/grossly intact
Psych: Calm
Laboratory Results
-
04/29/24 09:36
04/29/24 09:36
Laboratory Results
Total Bilirubin 0.4 mg/dl (0.2-1.3) 04/29/24 09:36
AST 40 U/L (17-59) 04/29/24 09:36
ALT 92 U/L (0-50) H 04/29/24 09:36
Alkaline Phosphatase 127 U/L (38-126) H 04/29/24 09:36
Troponin I 0.016 ng/ml 04/29/24 11:32
Data Reviewed
-
CT Scan: Report Reviewed by me
Lab Data: Labs Reviewed by me
Old Records: Reviewed
Impression/Plan
-
Reviewed VS: unremarkable
Vital Signs
Temp Pulse Resp BP Pulse Ox
98.3 F 104 28 111/70 96
04/29/24 08:07 04/29/24 08:30 04/29/24 08:30 04/29/24 08:07 04/29/24 08:30
Laboratory Tests
04/23/24 04/29/24 04/29/24
09:08 09:36 11:32
WBC 12.9 H 11.3 H
Hgb 10.4 L 11.2 L
Plt Count 482 H 479 H
D-Dimer 2.46 H
Creatinine 0.7
eGFR > 60.00
ALT 92 H
Alkaline Phosphatase 127 H
Troponin I 0.016
EKG
SINUS TACHYCARDIA WITH OCCASIONAL PREMATURE VENTRICULAR COMPLEXES
LEFT VENTRICULAR HYPERTROPHY WITH QRS WIDENING AND REPOLARIZATION ABNORMALITY
( [place] product )
INFERIOR INFARCT (CITED ON OR BEFORE 22-NOV-2021)
ABNORMAL ECG
WHEN COMPARED WITH ECG OF 18-APR-2024 17:04,
PREMATURE VENTRICULAR COMPLEXES ARE NOW PRESENT
CT Chest PE Study
There is no pulmonary embolism
There is no tumor at the right hilum measuring approximately 8.2 x 8.8 x 11.7 cm in AP, transverse and craniocaudal dimensions respectively.
The tumor is associated with obstruction of the right upper lobe bronchus with right upper lobe atelectasis as well as greater than 50% narrowing of the right main pulmonary artery
There is small right pleural effusion
There is dependent atelectasis at the posterior left lung base
Last hospitalist admission:
Date of Admission: 04/10/24 -Date of Discharge: 04/26/24
Discharge Diagnosis/Procedures:
Influenza A infection
COPD exacerbation
E. coli bacterial pneumonia
Generalized weakness
Microcytic anemia
Back pain
ASSESSMENT & PLAN
Currently CP free
CP : relieved by SL NTG
No acute ischemic changed in EKG
HX CAD with stents
HX HLD
Prior ECHO : LVEF of 55 to 60%. No major valvulopathy.
- c/w TELEPHONIC RN ASA , Lipitor
- Trend TPNI
- TLM monitor
Dyspnea ; chronic and multifactorial
NEG CT for acute PE
RUL collapse from malignancy
HX COPD
Chr tobacco use - stop since last admission and at SNF
- Adequate POx on RA
HX COPD
Tobacco abuse-quit smoking 6-7 weeks ago.
-On oral prednisone on slow taper course
- maintain on nebulizers/Bronchodilators.
HX Right upper lung undifferentiated carcinoma
Underweight - wt loss per family ?due to malignancy.
-Pathology and Genetic testing results reviewed - undifferentiated carcinoma
-scheduled for treatment as outpatient
-family history of lung cancer.
-follows w/ Dr. Benjamin [facility] center and plan to get port-a-cath and eventual chemotherapy.
-OP oncology following.
Microcytic anemia; higher cuurent Hgb ? hemococncetration or improved
- on b12 supplementation.
- no acute bleeding
Back pain HX
-chronic lumbago, aggravated by cough
-already on steroids for pulm issues
-symptomatic care with heating pad/pain meds/topical nsaid cream
Anxiety disorder
Essential Hypertension on toprol XL
OCD with cleaning
DVT prophylaxis-Lovenox
CODE STATUS -Full code
Obs TLM
[2024-04-29] MEDS: DUONEB INH ×2 (16:03→16:06)
--- NOTE | 2024-04-29 16:43 | TRANSFER ---
Received patient from ED at 1600. He was a stand and pivot transfer from stretcher to bed. Report obtained from ED nurse. No pain reported at time of transfer. Patient oriented to room, TV and call campbell. Verbalizes understanding. All needs met at
this time.
[2024-04-29 16:58] LABS: Troponin I 0.013 ng/ml
[2024-04-29] MEDS: LOVENOX 40 MG SC (17:13)
[2024-04-29] MEDS: NEURONTIN 400 MG PO ×2 (17:14→21:36)
[2024-04-29 20:34] LABS: Troponin I 0.012 ng/ml
[2024-04-29] MEDS: TYLENOL 650 MG PO (21:36)
[2024-04-29] MEDS: ELAVIL 50 MG PO (21:36)
[2024-04-29] MEDS: LIPITOR 80 MG PO (21:36)
[2024-04-30] VITALS (7 sets, daily range): BP systolic 126–144; BP diastolic 75–83; PULSE 104–106; O2SAT 93; BMI 18.8
--- NOTE | 2024-04-30 02:54 | DOWNTIME ---
There was a [employer] Client Slip Cover Estimator Downtime on 04/30/2024 from 0100 to 04/30/2023 at 0235 . Downtime documentation of patient's care, including medication administrations, has been reconciled in the electronic record per guidelines. Refer to the
patient's paper chart under the miscellaneous tab to see printed paper medication records and downtime forms.
--- NOTE | 2024-04-30 06:52 | W.PN.HOSP.TC ---
Today's Communication/Plan
-
trial Baclofen 5 mg TID
Pulm Cardio Oncology Eval
cont steroid taper
monitor respiratory status
PT/OT
pain control
2 lidocaine patches back
Assessment / Plan
Assessment / Plan
Physical Exam
General: mild moderate distress due to bilateral hand cramping
HEENT: NormoCephalic, Moist mucous membranes and Atraumatic
Respiratory: clear to auscultation b/l, stable respiratory status on room air, exertional dyspnea noted
Cardiac: S1/S2 and Regular Rhythm; No Murmur or Rub
GI: Soft, Non Tender, Non Distended and Normal Bowel Sounds; No Organomegaly
Musculoskeletal: No Clubbing, No Cyanosis and No Edema
Skin: No Rash
Neuro: AO x 3
Psych: Calm
64M [place] CAD HTN HLD Lung Ca (due to start chemo) COPD hx Tobacco use recent prolonged hospitalization due to influenza pneumonia COPD exacerbation, discharged to SNF rehab 04/26/24 returns 04/29/24 due to acute chest pain with associate
shortness of breath since improved with prn nitro.
Currently CP free
CP : relieved by SL NTG
No acute ischemic changed in EKG
HX CAD with stents
HX HLD
Prior ECHO : LVEF of 55 to 60%. No major valvulopathy.
- c/w [employer] ASA, Lipitor, Metoprolol
- Troponin consistently wnl x4
- TLM monitor
-Cardio eval requested
Dyspnea ; chronic and multifactorial
NEG CT for acute PE
RUL collapse from malignancy
HX COPD
Chr tobacco use - stop since last admission and at SNF
- Adequate POx on RA
-On oral prednisone slow taper course
- maintain on nebulizers/Bronchodilators.
-Pulm eval requested
HX Right upper lung undifferentiated carcinoma
Underweight likely d/t acute illness possible malignancy related, wt since improved, cont to monitor
-Pathology and Genetic testing results reviewed - undifferentiated carcinoma
-scheduled for treatment as outpatient
-family history of lung cancer.
-follows w/ Dr. [facility] and plan to get port-a-cath and eventual chemotherapy.
-Oncology Eval requested
Anemia
Prior Iron studies appreciated Anemia of Chronic Disease
- cont b12 supplementation.
- Monitor H&H, no acute bleeding noted
chronic back pain
-chronic lumbago, aggravated by cough
-already on steroids for pulm issues as above
-Lidocaine patches 2 lower back
-cont home gabapentin
-tylenol prn
Severe Cramping hands b/l unclear etiology
-trial Baclofen 5 mg TID
-monitor and replete electrolytes as necessary
Anxiety disorder
Essential Hypertension on toprol XL
OCD with cleaning
PT/OT eval appreciated SNF rehab
DVT prophylaxis-Lovenox
CODE STATUS -Full code
Obs TLM
Discussed with patient and patient's [id number]-oic Bel
I spent a total of 60 minutes with the patient or on the floor. More than 50% of this time involved counseling and coordination of care.
Anticipated Discharge: 24 - 48 hours
Subjective/Interval History
-
Date of Service: April 30, 2024
Seen and examined at bedside in no acute distress sitting up comfortably in bed. Stable respiratory status on room air at rest. Exertional and conversational dyspnea noted. Patient later exhibited significant hang cramping/spasm b/l unclear
etiology.
Objective Data
-
Labs:
Laboratory Results
04/30/24
06:37
WBC Pending
Hgb Pending
Hct Pending
Plt Count Pending
Sodium Pending
Potassium Pending
Chloride Pending
Carbon Dioxide Pending
BUN Pending
Creatinine Pending
Glucose Pending
Calcium Pending
Total Bilirubin Pending
AST Pending
ALT Pending
Alkaline Phosphatase Pending
Vital Signs:
Vital Signs
Temp Pulse Resp BP Pulse Ox
97.5 F 97 18 109/67 96
04/29/24 23:00 04/29/24 23:00 04/29/24 23:00 04/29/24 23:00 04/29/24 23:00
I&O
04/28/24 04/29/24 04/30/24
06:59 06:59 06:59
Intake Total 360 / 360
Output Total 600 / 600
Balance -240 / -240
[2024-04-30 07:00] LABS: Hematocrit 29.5 % (39.0-52.0); Hemoglobin 9.4 g/dL (13.0-18.0); Mean Corp Hgb Conc. 31.9 g/dL (33.0-37.0); Mean Corpuscular Hgb 25.3 pg (27.0-31.0); Mean Corpuscular Volume 79.5 fL (80.0-94.0); Mean Platelet Volume 9.2 fL (7.4-10.4); Platelet Count 410 10^3/uL (130-400); Red Blood Cell Count 3.71 10^6/uL (4.70-6.10); White Blood Cell Count 9.4 10^3/uL (4.8-10.8)
[2024-04-30 07:19] LABS: ALT (SGPT) 61 U/L (0-50); AST (SGOT) 29 U/L (17-59); Albumin 2.7 g/dl (3.5-5.0); Alkaline Phosphatase 99 U/L (38-126); Blood Urea Nitrogen 17 mg/dl (9-20); Calcium 8.2 mg/dl (8.4-10.2); Carbon Dioxide 27 mmol/L (22-30); Chloride 101 mmol/L (98-107); Estimated Creatinine Clearance 100 ml/min; Glucose 85 mg/dl (70-99); Potassium 4.1 mmol/L (3.5-5.1); Sodium 134 mmol/L (135-145); Total Bilirubin 0.6 mg/dl (0.2-1.3); eGFR > 60.00
[2024-04-30] MEDS: DUONEB 3 ML INH ×3 (07:26→19:39)
[2024-04-30] MEDS: SPIRIVA RESPIMAT 2.5 MCG 2 PUFF INH (07:26)
[2024-04-30] MEDS: STRIVERDI RESPIMAT 2 PUFF INH (07:41)
[2024-04-30] MEDS: VITAMIN B-12 1000 MCG PO (08:01)
[2024-04-30] MEDS: PROTONIX 40 MG PO (08:01)
[2024-04-30] MEDS: NEURONTIN 400 MG PO ×3 (08:01→22:19)
[2024-04-30] MEDS: DELTASONE 20 MG PO (08:01)
[2024-04-30] MEDS: TOPROL XL 25 MG PO (08:01)
[2024-04-30] MEDS: ASPIR LOW (ENTERIC COATED) 81 MG PO (08:01)
[2024-04-30 09:45] LABS: Glycohemoglobin (HgbA1c) 6.1 % (4.0-5.6)
--- NOTE | 2024-04-30 11:41 | CON.PUL ---
Consultation
Consultation Request
Date/Time Consultation Requested: 04/30/2019 5-11 5 AM
Date/Time Consultation Performed: 04/30/2019 5 45 AM
Requesting Provider: Hospitalist
Performing Provider: Dr. Keith
Reason for Consultation: Airway obstruction
Medical History
-
Chief Complaint: Shortness of breath
History of Present Illness:
64-year-old former smoking male with underlying COPD recently diagnosed with lung cancer and recently admitted with influenza and COPD exacerbation recovering at [facility] for rehab and now presents with shortness of breath and chest pain-CT
with airway obstruction-pulmonary consulted for potential bronchoscopic role for airway obstruction 04/30/2024.. He does complain of some shortness of breath, but not significantly worse than it was several weeks ago.. He denies any chest pain,
chest tightness, hemoptysis, productive cough, pleurisy, abdominal pain, nausea,
Or weakness.
Past Medical History
Past Medical History: None (CAD/stent. Hypertension. Hyperlipidemia. COPD. Lung cancer. Depression. Radiculopathy. Ischemic cardiomyopathy. Anxiety. CVA. Hydrocele.)
Social History
Tobacco: Former Smoker
Alcohol: None
Drug: None
Living: Other (Rehab)
Occupational Exposures: No known asbestos exposure
Environmental Exposures: No known tuberculosis exposure
Family History
Family History: Reviewed & Not Pertinent ( family history lung cancer. Family history sarcoidosis.)
Allergies / Home Medications
Allergies
Allergy/AdvReac Type Severity Reaction Status Date / Time
Iodinated Contrast Media Allergy Mild Hives Verified 04/29/24 08:20
onion Allergy Rash Verified 04/29/24 08:20
Home Medications
�Medication �Instructions �Recorded �Confirmed �Last Taken �Type
amitriptyline 50 mg tablet 50 mg PO HS Mental Health 03/07/24 04/29/24 03/06/24 20:00 History
atorvastatin 80 mg tablet (Lipitor) 80 mg PO HS High Cholesterol 03/07/24 04/29/24 03/06/24 20:00 History
gabapentin 400 mg tablet 400 mg PO TID Pain 03/07/24 04/29/24 03/06/24 20:00 History
metoprolol succinate 25 mg 25 mg PO DAILY Blood Pressure 03/07/24 04/29/24 03/07/24 09:30 History
tablet,extended release 24 hr
(Toprol XL)
aspirin 81 mg tablet,delayed 81 mg PO DAILY Blood Clot 04/11/24 04/29/24 Unknown History
release Prevention/Tx
umeclidinium 62.5 mcg-vilanterol 1 inh inhalation R DAILY 04/11/24 04/29/24 Unknown History
25 mcg/actuation powdr for Lung/Breathing Issues
inhalation (Anoro Ellipta)
ipratropium 0.5 mg-albuterol 3 mg 3 ml inhalation R Q4HPRN PRN 04/26/24 04/29/24 Unknown Rx
(2.5 mg base)/3 mL nebulization shortness of breath 30 days #180 mL
soln
acetaminophen 325 mg tablet 650 mg PO Q6HPRN PRN pain 04/29/24 04/29/24 Unknown History
(Tylenol)
bisacodyl 10 mg rectal suppository 10 mg [place] DAILYPRN PRN if no bm 04/29/24 04/29/24 Unknown History
(Dulcolax (bisacodyl)) aftr mom
cefdinir 300 mg capsule 300 mg PO Q12H Infection 04/29/24 04/29/24 Unknown History
cyanocobalamin (vitamin B-12) 1,000 mcg PO DAILY Supplement 04/29/24 04/29/24 Unknown History
1,000 mcg tablet (Vitamin B-12)
dextromethorphan-guaifenesin 10 10 ml PO Q4HPRN PRN cough 04/29/24 04/29/24 Unknown History
mg-100 mg/5 mL oral syrup
ipratropium 0.5 mg-albuterol 3 mg 3 ml inhalation R TID 04/29/24 04/29/24 Unknown History
(2.5 mg base)/3 mL nebulization Lung/Breathing Issues
soln
lidocaine 4 % topical patch 1 patch topical DAILY Pain 04/29/24 04/29/24 Unknown History
magnesium hydroxide 400 mg/5 mL 2,400 mg PO DAILYPRN PRN if no bm 04/29/24 04/29/24 Unknown History
oral suspension (Milk of Magnesia) by 3rd day
pantoprazole 40 mg tablet,delayed 40 mg PO DAILY Gastrointestinal 04/29/24 04/29/24 Unknown History
release Issue
prednisone 10 mg tablet See Rx Instructions .Route 04/29/24 04/29/24 Unknown History
.COMPLEX Anti-Inflammatory
Review of Systems
-
Unable to Obtain full review of systems at this time due to: Other (Per HPI)
Vitals / Labs / Diagnostic Testing
Vital Signs
Temp Pulse Resp BP Pulse Ox
97.4 F 102 20 134/83 96
04/30/24 11:35 04/30/24 11:35 04/30/24 11:35 04/30/24 11:35 04/30/24 11:35
Lab Data
04/30/24 06:37
04/30/24 06:37
Diagnostic Testing:
Physical Exam
-
Exam:
Well-nourished and well-developed in no apparent distress
HEENT-atraumatic, normocephalic
Neck-supple, no JVD, no bruit
Heart-regular rate and rhythm-no murmurs, rubs or gallops
Chest-clear to auscultation, no wheezes, crackles
Back-no tenderness
Abdomen-soft, nontender, nondistended, no hepatosplenomegaly
Extremities-no cyanosis, clubbing, edema and good peripheral pulses
Integument-intact, no rashes, lesions or ecchymosis
Neurology-alert and oriented, nonfocal motor and sensory exam
Assessment
-
64-year-old former smoking male with underlying COPD recently diagnosed with lung cancer and recently admitted with influenza and COPD exacerbation recovering at [facility] for rehab and Emma presents with shortness of breath and chest pain-CT
with airway obstruction-pulmonary consulted for potential bronchoscopic role for airway obstruction 04/30/2024.
Chest pain-atypical
Lung cancer-right upper lobe undifferentiated with right upper lobe airway obstruction and subsequent atelectasis
Sschrx-knzyewallg-wyzeupwuav 9.4
Thrombocytosis
Conditions present prior to admission:
CAD/stent-[facility] 2016
Hypertension.
Hyperlipidemia.
COPD-FEV1 1.86-55%, lymph percent BD response, on anoro and Albuterol
Lung cancer-, stage IIIB bronch 03/07/24-poorly differentiated undifferentiated carcinoma, station 4R and 7, also positive for carcinoma-following oncology, Dr. Benjamin-has not started treatment as he developed influenza prior
Cigarette [id number]-year-ongoing until very recently
Depression.
Radiculopathy.
Ischemic cardiomyopathy.
Anxiety
Depression.
CVA.
Autism.
Lumbar radiculopathy.
Hydrocele.
Plan
Respiratory status is relatively stable compared to his baseline-recovering from influenza with underlying COPD-currently not under acute exacerbation..
Multiple CTs of the chest, PET scan, and radiographs were reviewed.
Patient has chronic and slightly progressive right upper lobe atelectasis from yet untreated and progressing undifferentiated carcinoma.
Fairly asymptomatic at this point and recommend stabilizing and initiating therapeutics as soon as his performance status improves.
If interventional pulmonary is needed such as core out procedure, stenting then referral will likely be initiated-hold off for now
Supplemental oxygen if needed-currently on room air.
Incentive spirometry.
Aspiration cautions.
Nebulizers if needed.
Outpatient anoro and Albuterol as needed-currently on Spiriva and DuoNeb nebs 3 times a day
Prednisone taper
Monitor hemoglobin.
Transfuse as needed
Smoking cessation counseling ongoing
DVT prophylaxis-on Lovenox.
Nutrition
Early mobilization.
Outpatient oncological follow-up.
Outpatient pulmonary follow-up
Patient last saw Dr. Fontana at 03/21/24 and then Kenna GUERRIER NP 04/10/24 and has scheduled appointment with Dr. Fontana /12/04
Diagnostic data:
Chest x-ray 03/07/2024-no pneumothorax following bronchoscopy, near complete opacification right upper lobe
Chest x-ray 04/26/2024-approximately 0.5 cm right hilar mass associated postobstructive atelectasis right upper lobe
Chest x-ray 04/29/24-11 cm right hilar tumor with right upper lobe atelectasis
CT chest 02/19/24-3.8 cm ill-defined soft tissue mass right upper lobe suspicious for lung cancer with associated occlusion of the right upper lobe bronchus and partial atelectasis of the right upper lobe, lymphangitic spread of tumor within the
right upper lobe
CT chest 04/29/2024-no pulm embolism, 8.2 x 11.7 cm right hilar tumor with obstruction of the right upper lobe bronchus and right upper lobe atelectasis as well as greater than 50% narrowing of the right main pulmonary artery
PET scan 03/24/2024-lobular soft tissue mass right hilum extending into the right upper lobe measuring 6.5 x 11 cm with SUV max 34.9, 3.8 cm pretracheal lymph node with SUV 3.1
Lower extremity ultrasound 04/20/2024-no evidence for DVT in the left lower extremity
PFT 03/21/24: FVC 3.02/66%, FEV1 1.86/55%, ratio 62.� There is an 11% improvement in the FEV1 following bronchodilator.� TLC 5.00/71%, DLCO 15.97/58%.� Moderate obstruction, mild restriction, moderate gas exchange defect
Data Reviewed
-
EKG: Report reviewed by me
Radiology: Image personally visualized and interpreted and Report reviewed by me
CT Scan: Image personally visualized and interpreted
Medical Tests (Nuc Med, Echo etc): Report reviewed by me
Labs: Labs reviewed by me
Old Records: Reviewed
Total Time Spent with Patient (in minutes): 65
[2024-04-30] MEDS: LIDOCAINE 4% PATCH 2 PATCH TOPICAL (12:18)
--- NOTE | 2024-04-30 13:47 | CM ---
Received consult to call patient's sister in law, Madelyn. Spoke with Jessica in admissions at [facility] (admissions). Patient was recently here and when discharged, discovered that his insurance has a low reimbursement rate and therefore the
majority of patient's and families choices for SNFs declined. [facility] worked out a single payor agreement with [facility] and they negotiated a higher rate and therefore accepted him upon discharge. Jessica stated that the family is refusing to
return to [facility] as they had multiple concerns. As this is the case, Jessica stated that there are two other facilities in which he could potentially transfer: [facility], [facility]. Per [employer] referrals for both facilities have been sent.
Jessica stated that if patient accepted to one of the other two potential facilities, she would have to determine if they would need a new auth and contract or if the auth and contract would transfer over with patient. She stated that she will confirm
whether or not this is the case.
Placed a call to Madelyn, to determine if family would be agreeable with either [facility] or [facility] SNF, and update regarding status of determining whether new auth and rate would be needed, however there was no answer. Left a voice mail message
and encouraged return call. Provided CM contact information.
Plan: Case management will continue to follow and assist with discharge planning. SNF when stable.
--- NOTE | 2024-04-30 14:21 | CM ---
TC from Madelyn Stanley re her brother in law De Dios.
Per Madelyn, they had a very negative experience at [facility] and refuse to return to that facility. She is agreeable to looking into other options, but not to [facility] or [facility]. Madelyn has been researching rehab facilities and and
options such as [facility] and [facility]. CM explained patient does not meet criteria at this time for acute rehab and would need to go to a skilled rehab facility.
Madelyn again directed to the medicare.gov website to look at facilities and suggested she tour facilities.
CM reviewed with Madelyn that patients insurance is not widely accepted and may cause difficulty with getting into facilities.
Per Madelyn they do plan on chemotherapy initiating at some point, no port yet.
Per Madelyn she is looking into medicare for patient and has an appointment for May 16. To help facilitate, she has called the state parts counter representative for assistance.
Madelyn has calls out to patients Oncologist to discuss transfer and initiating chemo.
CM will continue to work with family to find a skilled bed.
Plan: skilled rehab once bed and auth received.
[2024-04-30] MEDS: TYLENOL 650 MG PO (14:22)
--- NOTE | 2024-04-30 14:56 | CON.CAR ---
Addendum entered and electronically signed by Bertrand Le MD 04/30/24 18:13:
I saw and examined the patient.
The Wax Pumper's note was reviewed and I agree with the note.
Comment: Briefly, 64-year-old man past medical history of CAD with prior KS and recovered ischemic cardiomyopathy as well as newly diagnosed lung cancer who was recently admitted for flu and pneumonia, discharged, now readmitted with chest pain and
shortness of breath.
At the time of my evaluation patient was describing chest and back pain which came on at rest. But also tells me that he has 'pain all over my body.'
Reports that chest and back pain is different from what he experienced during prior MIs.
Troponin has been within normal limits x 4 and ECG is stable compared to prior tracings therefore I doubt symptoms are related to ACS.
Recommend outpatient cardiology follow-up and discussion regarding ischemic evaluation at that time, potentially with pharmacologic nuclear stress test.
For now continue aspirin, high intensity statin and beta-daniela as antianginal
Not much to add from a cardiology perspective, we will sign off, please recall as needed
Original Note:
Consultation
Consultation Request
Date/Time Consultation Performed: 04/30/24
Requesting Provider: Dr. Briceno
Performing Provider: Tracey Matthew PA-C for Dr. Le
Reason for Consultation: CP
Medical History
-
Chief Complaint: CP, SOB
History of Present Illness:
Patient is a 64-year-old male with past medical history of CAD status post 2 MIs in 2003, 2015 with circumflex PCI and [employer] of RCA, prior recovered ischemic cardiomyopathy, hypertension, hyperlipidemia, tobacco abuse with suspected COPD,
anxiety/depression, autism, and recently diagnosed stage 3B lung cancer who has not yet been able to start treatment as was admitted to 04/10-04/26/24 for flu and PNA. He was then discharged to [facility]. He returned to for evaluation of CP
and SOB. He was given a breathing treatment at [facility] with some initial improvement however then reported significant pain in chest in back. He currently reports discomfort all over his chest. He is a poor historian and is unsure if anything he was
given helped to relieve his pain or breathing. Cardiology consulted for evaluation due to concern for ACS. Trops negative x4. Recent echo 2/3 with normal EF. He had been recommended a stress test at his last cardiac appt 08/10/23 however does not
appear this was ever completed.
PMH:
Recent diagnosis stage 3B lung cancer
CAD s/p KS in 2003, 2016 with circ PCI and [employer] SUPER[employer] RCA
History of ischemic cardiomyopathy, recovered
HTN
HLD
Tobacco abuse with suspected COPD
Anxiety/depression
Autism
Past Medical History
Past Medical History: Other (in HPI)
Social History
Tobacco: Smoker
Alcohol: None
Living: Other (rehab at [facility] after last admission to )
Employment: Retired
Family History
Family History: Unable to Obtain (poor historian)
Allergies / Home Medications
Allergy/AdvReac Type Severity Reaction Status Date / Time
Iodinated Contrast Media Allergy Mild Hives Verified 04/29/24 08:20
onion Allergy Rash Verified 04/29/24 08:20
�Medication �Instructions �Recorded �Confirmed �Type
amitriptyline 50 mg tablet 50 mg PO HS Mental Health 03/07/24 04/29/24 History
atorvastatin 80 mg tablet (Lipitor) 80 mg PO HS High Cholesterol 03/07/24 04/29/24 History
gabapentin 400 mg tablet 400 mg PO TID Pain 03/07/24 04/29/24 History
metoprolol succinate 25 mg 25 mg PO DAILY Blood Pressure 03/07/24 04/29/24 History
tablet,extended release 24 hr
(Toprol XL)
aspirin 81 mg tablet,delayed 81 mg PO DAILY Blood Clot 04/11/24 04/29/24 History
release Prevention/Tx
umeclidinium 62.5 mcg-vilanterol 1 inh inhalation R DAILY 04/11/24 04/29/24 History
25 mcg/actuation powdr for Lung/Breathing Issues
inhalation (Anoro Ellipta)
ipratropium 0.5 mg-albuterol 3 mg 3 ml inhalation R Q4HPRN PRN 04/26/24 04/29/24 Rx
(2.5 mg base)/3 mL nebulization shortness of breath 30 days #180 mL
soln
acetaminophen 325 mg tablet 650 mg PO Q6HPRN PRN pain 04/29/24 04/29/24 History
(Tylenol)
bisacodyl 10 mg rectal suppository 10 mg [place] DAILYPRN PRN if no bm 04/29/24 04/29/24 History
(Dulcolax (bisacodyl)) aftr mom
cefdinir 300 mg capsule 300 mg PO Q12H Infection 04/29/24 04/29/24 History
cyanocobalamin (vitamin B-12) 1,000 mcg PO DAILY Supplement 04/29/24 04/29/24 History
1,000 mcg tablet (Vitamin B-12)
dextromethorphan-guaifenesin 10 10 ml PO Q4HPRN PRN cough 04/29/24 04/29/24 History
mg-100 mg/5 mL oral syrup
ipratropium 0.5 mg-albuterol 3 mg 3 ml inhalation R TID 04/29/24 04/29/24 History
(2.5 mg base)/3 mL nebulization Lung/Breathing Issues
soln
lidocaine 4 % topical patch 1 patch topical DAILY Pain 04/29/24 04/29/24 History
magnesium hydroxide 400 mg/5 mL 2,400 mg PO DAILYPRN PRN if no bm 04/29/24 04/29/24 History
oral suspension (Milk of Magnesia) by 3rd day
pantoprazole 40 mg tablet,delayed 40 mg PO DAILY Gastrointestinal 04/29/24 04/29/24 History
release Issue
prednisone 10 mg tablet See Rx Instructions .Route 04/29/24 04/29/24 History
.COMPLEX Anti-Inflammatory
Review of Systems
-
History Source: Patient
All other systems: Negative unless noted
Physical Exam
Vital Signs
Temp Pulse Resp BP Pulse Ox
97.8 F 111 20 137/81 95
04/30/24 14:55 04/30/24 14:55 04/30/24 14:55 04/30/24 14:55 04/30/24 14:55
Lab Results
04/30/24 06:37
04/30/24 06:37
Troponin I Cancelled 04/29/24 21:50
Physical Exam
General: No Apparent Distress and Other (SOB)
HEENT: Normocephalic, Anicteric and Moist Mucous Membranes
Respiratory: Crackles (at bases) and Other (decreased on R)
Cardiac: S1/S2 and Regular Rhythm
GI: Soft, Non Tender, Non Distended and Normal Bowel Sounds
Musculoskeletal: No Clubbing, No Cyanosis and No Edema
Skin: Warm and Dry
Neuro: Awake, Alert and Oriented (to self)
Impression / Plan
-
Primary Claim Clinician: Dr. Hunt
Assessment:
Presentation with CP, SOB
Serially negative troponins
Admission to [facility] 04/10 - 04/26/2024 for flu/pneumonia
Recent diagnosis stage 3B lung cancer
CAD s/p KS in 2003, 2015 with circ PCI and [employer] RCA
History of ischemic cardiomyopathy, recovered
HTN
HLD
Tobacco abuse with suspected COPD
Anxiety/depression
Autism
ECHO 04/14/24: EF 55-60%, MAC, trace MR, no significant change compared to prior
Plan:
-Patient with recent admission to [facility] 04/10 - 04/26/2024 for flu/pneumonia now presents back to [facility] from [facility] with complaints of chest discomfort and shortness of breath. Cardiology consulted to evaluate for possible ACS
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
-Troponins serially negative
-EKG
-Recent echo with preserved EF and no regional wall motion abnormalities noted
-Concerned that chest pain secondary to lung cancer rather than cardiac etiology. CT with evidence of airway obstruction. pulm following. on prednisone taper.
-Will arrange outpatient follow-up and at that time can reassess candidacy for stress testing based on recovery
-Continue aspirin, Lipitor, Toprol
-smoking cessation
Data Reviewed
-
EKG: Tracing Personally Visualized and interpreted
CT Scan: Report Reviewed by me
Medical Tests (Nuc Med, Echo etc): Report Reviewed by me
Labs: Labs Reviewed by me
Old Records: Reviewed
--- NOTE | 2024-04-30 17:00 | PTCARENOTE ---
Pt c/o hand cramps. made aware. Pt family member over phone informed this RN that weight in rehab was 117 lbs and that it is now increased to 126/127 lbs. made aware.
[2024-04-30] MEDS: LOVENOX 40 MG SC (17:19)
[2024-04-30 18:57] LABS: Phosphorus 3.6 mg/dl (2.5-4.5)
[2024-04-30] MEDS: LIORESAL 5 MG PO (19:43)
[2024-04-30 20:18] LABS: Blood Urea Nitrogen 12 mg/dl (9-20); Calcium 8.3 mg/dl (8.4-10.2); Carbon Dioxide 22 mmol/L (22-30); Chloride 105 mmol/L (98-107); Estimated Creatinine Clearance 100 ml/min; Glucose 117 mg/dl (70-99); Phosphorus 3.1 mg/dl (2.5-4.5); Potassium 4.4 mmol/L (3.5-5.1); Sodium 134 mmol/L (135-145); eGFR > 60.00
[2024-04-30] MEDS: LIPITOR 80 MG PO (22:19)
[2024-04-30] MEDS: ELAVIL 50 MG PO (22:19)
[2024-04-30] MEDS: LIORESAL PO (22:19)
[2024-05-01 03:00] VITALS: BP 126/74
[2024-05-01 06:00] VITALS: BMI 18.6
[2024-05-01 07:05] LABS: Hematocrit 31.6 % (39.0-52.0); Hemoglobin 9.7 g/dL (13.0-18.0); Mean Corp Hgb Conc. 30.7 g/dL (33.0-37.0); Mean Corpuscular Hgb 25.1 pg (27.0-31.0); Mean Corpuscular Volume 81.9 fL (80.0-94.0); Mean Platelet Volume 9.3 fL (7.4-10.4); Platelet Count 402 10^3/uL (130-400); Red Blood Cell Count 3.86 10^6/uL (4.70-6.10); Red Cell Dist. Width 19.7 % (11.5-14.5); White Blood Cell Count 8.9 10^3/uL (4.8-10.8)
[2024-05-01 07:06] VITALS: BP 164/70
[2024-05-01] MEDS: STRIVERDI RESPIMAT 2 PUFF INH (07:13)
[2024-05-01] MEDS: DUONEB 3 ML INH (07:13)
[2024-05-01] MEDS: SPIRIVA RESPIMAT 2.5 MCG 2 PUFF INH (07:14)
[2024-05-01 07:37] LABS: Blood Urea Nitrogen 14 mg/dl (9-20); Calcium 8.4 mg/dl (8.4-10.2); Carbon Dioxide 28 mmol/L (22-30); Chloride 100 mmol/L (98-107); Estimated Creatinine Clearance 85 ml/min; Glucose 76 mg/dl (70-99); Magnesium 1.9 mg/dl (1.6-2.3); Phosphorus 3.7 mg/dl (2.5-4.5); Potassium 4.4 mmol/L (3.5-5.1); Sodium 134 mmol/L (135-145); eGFR > 60.00
--- NOTE | 2024-05-01 07:59 | W.PN.HOSP.TC ---
Today's Communication/Plan
-
PMR eval possible benefit acute rehab
cont baclofen
PT/OT
Vit D supplementation
Lumbar MRI
Assessment / Plan
Assessment / Plan
Physical Exam
General: mild moderate distress due to bilateral hand cramping
HEENT: NormoCephalic, Moist mucous membranes and Atraumatic
Respiratory: clear to auscultation b/l, stable respiratory status on room air, exertional dyspnea noted
Cardiac: S1/S2 and Regular Rhythm; No Murmur or Rub
GI: Soft, Non Tender, Non Distended and Normal Bowel Sounds; No Organomegaly
Musculoskeletal: No Clubbing, No Cyanosis and No Edema
Skin: No Rash
Neuro: AO x 3
Psych: Calm
64M [place] CAD HTN HLD Lung Ca (due to start chemo) COPD hx Tobacco use recent prolonged hospitalization due to influenza pneumonia COPD exacerbation, discharged to SNF rehab 04/26/24 returns 04/29/24 due to acute chest pain with associate
shortness of breath since improved with prn nitro.
Currently CP free
CP : relieved by SL NTG
No acute ischemic changed in EKG
HX CAD with stents
HX HLD
Prior ECHO : LVEF of 55 to 60%. No major valvulopathy.
- c/w CERTIFIED NURSE MIDWIFE ASA, Lipitor, Metoprolol
- Troponin consistently wnl x4
- TLM monitor
-Cardio eval appreciated
-nitro prn chest pain
Dyspnea ; chronic and multifactorial
NEG CT for acute PE
RUL collapse from malignancy
HX COPD
Chr tobacco use - stop since last admission and at SNF
- Adequate POx on RA
-On oral prednisone slow taper course
- maintain on nebulizers/Bronchodilators.
-Pulm eval appreciated
HX Right upper lung undifferentiated carcinoma
Underweight likely d/t acute illness possible malignancy related, wt since improved, cont to monitor
-Pathology and Genetic testing results reviewed - undifferentiated carcinoma
-scheduled for treatment as outpatient
-family history of lung cancer.
-follows w/ Dr. [facility] and plan to get port-a-cath and eventual chemotherapy.
-Oncology Eval appreciated
Anemia
Prior Iron studies appreciated Anemia of Chronic Disease
- cont b12 supplementation.
- Monitor H&H, no acute bleeding noted
chronic back pain
-chronic lumbago, aggravated by cough
-already on steroids for pulm issues as above
-Lidocaine patches 2 lower back
-cont home gabapentin
-tylenol prn
-follow up Lumbar MRI
Severe Cramping hands b/l unclear etiology
-Baclofen 5 mg TID
-monitor and replete electrolytes as necessary
Vit D deficiency
supplement started
Anxiety disorder
Essential Hypertension on toprol XL
OCD with cleaning
PT/OT eval appreciated SNF rehab, PMR eval requested for possible benefit Acute Rehab
Ensure supplement TID as patient takes at home per [id number]
DVT prophylaxis-Lovenox
CODE STATUS -Full code
Obs TLM
Discussed with patient and patient's [id number] Bel
I spent a total of 50 minutes with the patient or on the floor. More than 50% of this time involved counseling and coordination of care.
Anticipated Discharge: 24 - 48 hours
Subjective/Interval History
-
Date of Service: May 01, 2024
reports significant improvement in hand cramping this morning. [id number] however notes hand cramping re-occurring later in the day suspect due to repeat exertion/ physical deconditioning.
Objective Data
-
Labs:
Laboratory Results
04/30/24 05/01/24
19:55 06:31
WBC 8.9
Hgb 9.7 L
Hct 31.6 L
Plt Count 402 H
Sodium 134 L 134 L
Potassium 4.4 4.4
Chloride 105 100
Carbon Dioxide 22 28
BUN 12 14
Creatinine 0.5 L 0.7
Glucose 117 H 76
Calcium 8.3 L 8.4
Vital Signs:
Vital Signs
Temp Pulse Resp BP Pulse Ox
98.3 F 101 16 126/74 97
05/01/24 03:00 05/01/24 07:17 05/01/24 07:17 05/01/24 03:00 05/01/24 07:17
I&O
04/30/24 05/01/24 05/02/24
06:59 06:59 06:59
Intake Total 360 / 360 960 / 960
Output Total 600 / 600 3640 / 3640
Balance -240 / -240 -2680 / -2680
--- NOTE | 2024-05-01 08:08 | CON.ONC ---
Documented by User: BETHANY Mojica 05/01/24 12:02
Impression
Impression
Stage IIIb NSCLC (cT4cN2)
RUL tumor is associated with obstruction of the right upper lobe bronchus
Recent acute COPD exacerbation
Recent Influenza A infection
anemia
autism spectrum disorder -ELIZABETH Madelyn and Brother Ed are health care advocates
lower back pain
Plan
Plan
Patient with stage IIIb lung cancer
COPD, not in acute exacerbation. continues prednisone taper per pulmonary
Pulmonary plans to hold off on intervention for now
follow up iron studies
discharge to SNF and readmission have precluded initiation of chemoradiation
I have asked PT to re-evaluate pt with family present to help with cues and coaching. I will also consult PMR for evaluation for acute rehab.
Goals remain restorative, optimize performance status and nutritional status
I have ordered a MRI LS spine w &w/o contrast to further evaluate back pain
pain management, currently using lidoderm patch, tyleonl prn, and gabapentin
I called Madelyn and Ed to provide updates and answer questions
Patient History
History of Present Illness
Chief Complaint: SOB
Oncology team: Cassidy/Malena
64-year-old male with recently diagnosed stage IIIb (cT4cN2) right upper lobe NSCLC who was hospitalized at for COPD and influenza management 04/10-04/26 and discharged to SNF represented to ER 04/29 with chest pain and SOB. He describes pain in
his chest, back, and 'all over.' His SOB is at baseline from hospital discharge since 04/26. Initial evaluation notable for WBC 11.3, Hgb 11.2, Hct 36.3, platelet count 479,000, Na 134, normal renal function and LFTs. CTA chest showed no pulmonary
emboli, however, did show tumor at the right hilum measuring approximately 8.2 x 8.8 x 11.7 cm. The tumor is associated with obstruction of the right upper lobe bronchus with right upper lobe atelectasis as well as greater than 50% narrowing of the
right main pulmonary artery. March PET CT showed that the RUL mass was 6.5 x 11 x 11 cm.
Clinically, He denies any chest pain, chest tightness, hemoptysis, productive cough, pleurisy, abdominal pain, nausea, or weakness. He reports LBP that is feels better in chair than bed and exacerbated by movement. He denies any lower extremity
weakness or loss of bowel or bladder.
Afebrile, no hypotension, no hypoxia
Past-Medical/Surgical History
PMH: stage IIIb (cT4cN2) right upper lobe NSCLC, COPD, CAD, former tobacco use disorder, hyperlipidemia, depression, hypertension, autism spectrum disorder, and lumbar radiculopathy
PSHx: Coronary stent (2017 at [facility])
SH:
Tobacco: Former Smoker (87-girj-djzf history, quit 03/18/2024)
Alcohol: None
Drug: None
Living: Other (Lives in a special needs home)
FH: CAD (Father), Cancer (Mother: Ovarian/cervical cancer; Brother: Lung cancer) and Other (Brother: Sarcoidosis; Sister: Alcoholic; Brother: MVA)
Patient Medication
�Medication �Instructions �Recorded �Confirmed �Last Taken �Type
amitriptyline 50 mg tablet 50 mg PO HS Mental Health 03/07/24 04/29/24 03/06/24 20:00 History
atorvastatin 80 mg tablet (Lipitor) 80 mg PO HS High Cholesterol 03/07/24 04/29/24 03/06/24 20:00 History
gabapentin 400 mg tablet 400 mg PO TID Pain 03/07/24 04/29/24 03/06/24 20:00 History
metoprolol succinate 25 mg 25 mg PO DAILY Blood Pressure 03/07/24 04/29/24 03/07/24 09:30 History
tablet,extended release 24 hr
(Toprol XL)
aspirin 81 mg tablet,delayed 81 mg PO DAILY Blood Clot 04/11/24 04/29/24 Unknown History
release Prevention/Tx
umeclidinium 62.5 mcg-vilanterol 1 inh inhalation R DAILY 04/11/24 04/29/24 Unknown History
25 mcg/actuation powdr for Lung/Breathing Issues
inhalation (Anoro Ellipta)
ipratropium 0.5 mg-albuterol 3 mg 3 ml inhalation R Q4HPRN PRN 04/26/24 04/29/24 Unknown Rx
(2.5 mg base)/3 mL nebulization shortness of breath 30 days #180 mL
soln
acetaminophen 325 mg tablet 650 mg PO Q6HPRN PRN pain 04/29/24 04/29/24 Unknown History
(Tylenol)
bisacodyl 10 mg rectal suppository 10 mg MA DAILYPRN PRN if no bm 04/29/24 04/29/24 Unknown History
(Dulcolax (bisacodyl)) aftr mom
cefdinir 300 mg capsule 300 mg PO Q12H Infection 04/29/24 04/29/24 Unknown History
cyanocobalamin (vitamin B-12) 1,000 mcg PO DAILY Supplement 04/29/24 04/29/24 Unknown History
1,000 mcg tablet (Vitamin B-12)
dextromethorphan-guaifenesin 10 10 ml PO Q4HPRN PRN cough 04/29/24 04/29/24 Unknown History
mg-100 mg/5 mL oral syrup
ipratropium 0.5 mg-albuterol 3 mg 3 ml inhalation R TID 04/29/24 04/29/24 Unknown History
(2.5 mg base)/3 mL nebulization Lung/Breathing Issues
soln
lidocaine 4 % topical patch 1 patch topical DAILY Pain 04/29/24 04/29/24 Unknown History
magnesium hydroxide 400 mg/5 mL 2,400 mg PO DAILYPRN PRN if no bm 04/29/24 04/29/24 Unknown History
oral suspension (Milk of Magnesia) by 3rd day
pantoprazole 40 mg tablet,delayed 40 mg PO DAILY Gastrointestinal 04/29/24 04/29/24 Unknown History
release Issue
prednisone 10 mg tablet See Rx Instructions .Route 04/29/24 04/29/24 Unknown History
.COMPLEX Anti-Inflammatory
Active Medications
Generic Name Dose Route Start Last Admin
Trade Name Freq PRN Reason Stop Dose Admin
Acetaminophen 650 mg 04/30/24 23:29
Acetaminophen 325 Mg Tablet PO 05/28/24 23:28
Q4HPRN PRN
pain; temp>100.4F/ALMEIDA
Albuterol/Ipratropium 3 ml 04/29/24 16:00 05/01/24 07:13
Ipratropium 0.5/Albuterol 3 Mg (3 Ml Ampul) INH 3 ml
R TID SAW Administration
Protocol
Albuterol/Ipratropium 3 ml 04/29/24 15:50
Ipratropium 0.5/Albuterol 3 Mg (3 Ml Ampul) INH
R Q4HPRN PRN
shortness of breath
Protocol
Amitriptyline HCl 50 mg 04/29/24 22:00 04/30/24 22:19
Amitriptyline 50 Mg Tablet PO 05/27/24 21:59 50 mg
HS SAW Administration
Aspirin 81 mg 04/30/24 08:00 04/30/24 08:01
Aspirin 81 Mg (Enteric Coated) Tablet PO 05/28/24 07:59 81 mg
DAILY SAW Administration
Atorvastatin Calcium 80 mg 04/29/24 22:00 04/30/24 22:19
Atorvastatin (Lipitor) 80 Mg Tablet PO 05/27/24 21:59 80 mg
HS SAW Administration
Baclofen 5 mg 04/30/24 22:00 04/30/24 22:19
Baclofen 5 Mg Tablet PO 05/28/24 21:59 Not Given
TID SAW
Bisacodyl 10 mg 04/29/24 15:50
Bisacodyl 10 Mg Rectal Suppository RECTAL 05/27/24 15:49
DAILYPRN PRN
if no BM after MOM
Cyanocobalamin 1,000 mcg 04/30/24 08:00 04/30/24 08:01
Cyanocobalamin 1,000 Mcg Tablet PO 05/28/24 07:59 1,000 mcg
DAILY SAW Administration
Enoxaparin Sodium 40 mg 04/29/24 18:00 04/30/24 17:19
Enoxaparin Sodium 40 Mg/0.4 Ml Syringe SC 05/27/24 17:59 40 mg
QPM SAW Administration
Gabapentin 400 mg 04/29/24 16:00 04/30/24 22:19
Gabapentin 400 Mg Capsule PO 05/27/24 15:59 400 mg
TID SAW Administration
Guaifenesin/Dextromethorphan 10 ml 04/29/24 15:57
Guaifenesin/Dextromethorphan 200 Mg/10 Ml Cup PO 05/27/24 15:56
Q4HPRN PRN
cough
Lidocaine 2 patch 04/30/24 11:30 04/30/24 12:18
Lidocaine 4% Topical Patch TOPICAL 05/28/24 11:29 2 patch
DAILY SAW Administration
Protocol
Metoprolol Succinate 25 mg 04/30/24 08:00 04/30/24 08:01
Metoprolol 25 Mg Extended Release Tablet PO 05/28/24 07:59 25 mg
DAILY SAW Administration
Multivitamins Therapeutic 1 tablet 05/01/24 08:00
Multivitamin Tablet PO 05/29/24 07:59
DAILY SAW
Nitroglycerin 0.4 mg 04/30/24 11:13
Nitroglycerin 0.4 Mg Sl Tablet SL 05/28/24 11:12
[id number] PRN
chest pain
Olodaterol 2 puff 04/30/24 08:00 05/01/24 07:13
Olodaterol (Striverdi Respimat) 2.5 Mcg Inhaler INH 05/28/24 07:59 2 puff
R DAILY SAW Administration
Pantoprazole Sodium 40 mg 04/30/24 08:00 04/30/24 08:01
Pantoprazole 40 Mg Delayed Release Tablet PO 05/28/24 07:59 40 mg
DAILY ASW Administration
Patch Removal 0 patch 04/30/24 20:00 04/30/24 19:43
Remove Lidocaine Patch REMOVE 05/28/24 19:59 2 patch
DAILY@2000 SAW Administration
Prednisone 10 mg 05/02/24 08:00
Prednisone 10 Mg Tablet PO 05/06/24 08:01
DAILY SAW
Tiotropium [place] 2 puff 04/30/24 08:00 05/01/24 07:14
Tiotropium (Spiriva Respimat) 2.5 Mcg Inhaler INH 05/28/24 07:59 2 puff
R DAILY SAW Administration
Review of Systems
-
ROS notable for HPI, otherwise negative
Physical Exam
-
General: Well Developed, Well Nourished, No Apparent Distress and Comfortable
HEENT: Negative Jaundice
Cardiology: Normal Sinus Rhythm, S1 and S2
Pulmonary: Clear; Negative Rales
GI: Soft and Normal Bowel Sounds
Extremities: No C/C/E
Neurology: Non Focal
Labs
Lab Results
WBC 8.9 10^3/uL (4.8-10.8) 05/01/24 06:31
RBC 3.86 10^6/uL (4.70-6.10) L 05/01/24 06:31
Hgb 9.7 g/dL (13.0-18.0) L 05/01/24 06:31
Hct 31.6 % (39.0-52.0) L 05/01/24 06:31
MCV 81.9 fL (80.0-94.0) 05/01/24 06:31
MCH 25.1 pg (27.0-31.0) L 05/01/24 06:31
MCHC 30.7 g/dL (33.0-37.0) L 05/01/24 06:31
RDW 19.7 % (11.5-14.5) H 05/01/24 06:31
Plt Count 402 10^3/uL (130-400) H 05/01/24 06:31
MPV 9.3 fL (7.4-10.4) 05/01/24 06:31
Abs Immat Gran (auto) 0.1 10^3/uL (0-0.05) H 04/29/24 09:36
Absolute Neuts (auto) 9.8 10^3/uL (1.4-6.5) H 04/29/24 09:36
Absolute Lymphs (auto) 0.9 10^3/uL (1.2-3.4) L 04/29/24 09:36
Absolute Monos (auto) 0.5 10^3/uL (0.1-0.6) 04/29/24 09:36
Absolute Eos (auto) 0.0 10^3/uL (0-0.7) 04/29/24 09:36
Absolute Basos (auto) 0.0 10^3/uL (0-0.2) 04/29/24 09:36
Immature Gran % 0.9 % (0-0.5) H 04/29/24 09:36
Neutrophils % 86.4 % (42.2-75.2) H 04/29/24 09:36
Lymphocytes % 7.7 % (20.5-51.1) L 04/29/24 09:36
Monocytes % 4.6 % (1.7-9.3) 04/29/24 09:36
Eosinophils % 0.3 % (0-6) 04/29/24 09:36
Basophils % 0.1 % (0-2) 04/29/24 09:36
Creatinine 0.7 mg/dL (0.7-1.3) 05/01/24 06:31
Vital Signs
Vital Signs
Temp Pulse Resp BP Pulse Ox
97.5 F 101 16 164/70 97
05/01/24 07:06 05/01/24 07:17 05/01/24 07:17 05/01/24 07:06 05/01/24 07:17

Documented by User: Marquise Salvador, DO 05/01/24 13:12
Plan
Plan
Patient with stage IIIb lung cancer
COPD, not in acute exacerbation. continues prednisone taper per pulmonary
Pulmonary plans to hold off on intervention for now
follow up iron studies
discharge to SNF and readmission have precluded initiation of chemoradiation
I have asked PT to re-evaluate pt with family present to help with cues and coaching. I will also consult PMR for evaluation for acute rehab.
Goals remain restorative, optimize performance status and nutritional status
I have ordered a MRI LS spine w &w/o contrast to further evaluate back pain
pain management, currently using lidoderm patch, tyleonl prn, and gabapentin
Patient motivated patient And ambulating in the halls
Madelyn and Ed to were provided with updates
[2024-05-01] MEDS: TOPROL XL 25 MG PO (08:31)
[2024-05-01] MEDS: LIORESAL 5 MG PO ×3 (08:31→21:33)
[2024-05-01] MEDS: DELTASONE 20 MG PO (08:31)
[2024-05-01] MEDS: VITAMIN B-12 1000 MCG PO (08:31)
[2024-05-01] MEDS: PROTONIX 40 MG PO (08:31)
[2024-05-01] MEDS: LIDOCAINE 4% PATCH 2 PATCH TOPICAL (08:32)
[2024-05-01] MEDS: THERAGRAN 1 TABLET PO (08:32)
[2024-05-01] MEDS: NEURONTIN 400 MG PO ×3 (08:32→21:33)
[2024-05-01] MEDS: ASPIR LOW (ENTERIC COATED) 81 MG PO (08:32)
[2024-05-01 08:36] LABS: Iron 34 ug/dl (49-181)
[2024-05-01] MEDS: TYLENOL 650 MG PO ×2 (08:36→14:20)
[2024-05-01 08:45] LABS: Percent Saturation 13 % (20-50); Total Iron Binding Capacity 248 ug/dl (261-462)
--- NOTE | 2024-05-01 09:19 | W.PN.PUL3 ---
Today's Communication / Plan
-
Continue with nebulized albuterol with Striverdi + spiriva
Up OOB as tolerated
Pain control
Maintain SpO2 88-95%
Outpatient evaluation by oncology
No current need for interventional pulmonary procedure as he is on room air breathing comfortably
Continue to monitor
Assessment
-
64-year-old former smoking male with underlying COPD recently diagnosed with lung cancer and recently admitted with influenza and COPD exacerbation recovering at [facility] for rehab and Emma presents with shortness of breath and chest pain-CT
with airway obstruction-pulmonary consulted for potential bronchoscopic role for airway obstruction 04/30/2024.
Chest pain-atypical
Lung cancer-right upper lobe undifferentiated carcinoma with right upper lobe airway obstruction and subsequent atelectasis
Anemia
Thrombocytosis
Conditions present prior to admission:
CAD/stent-[facility] 2016
Hypertension.
Hyperlipidemia.
COPD-FEV1 1.86-55%, lymph percent BD response, on anoro and Albuterol
Lung cancer-, stage IIIB bronch 03/07/24-poorly differentiated undifferentiated carcinoma, station 4R and 7, also positive for carcinoma-following oncology, Dr. Benjamin-has not started treatment as he developed influenza prior
Cigarette [id number]-ongoing until very recently
Depression.
Radiculopathy.
Ischemic cardiomyopathy.
Anxiety
Depression.
CVA.
Autism.
Lumbar radiculopathy.
Hydrocele.
Plan
Respiratory status is relatively stable compared to his baseline-recovering from influenza with underlying COPD-currently not in an acute exacerbation
Multiple CTs of the chest, PET scan, and radiographs were personally reviewed
Patient has chronic and slightly progressive right upper lobe atelectasis from yet untreated and progressive undifferentiated carcinoma.
Fairly asymptomatic at this point and recommend stabilizing and initiating therapeutics as soon as his performance status improves --> defer this to Oncology
If interventional pulmonary is needed such as pulmonary stent vs cryoablation, then will need to TRX to [place] vs other tertiary care center. Currently on room air, no need for intervention at this juncture. Continue to monitor
Supplemental oxygen if needed-currently on room air and breathing comfortably with SpO2 94% --> keep SpO2 88-95%
Incentive spirometry encouraged q1hr while awake
Aspiration precautions
Change DuoNebs to nebulized albuterol with striverdi + spiriva
Outpatient anoro and Albuterol as needed
Prednisone taper - currently on 10mg daily
Monitor hemoglobin.
Transfuse as needed to keep Hb>7
Smoking cessation counseling ongoing
DVT prophylaxis-on Lovenox.
Nutrition
Early mobilization.
Outpatient oncological follow-up.
Outpatient pulmonary follow-up
Patient last saw Dr. Fontana at 03/21/24 and then BETHANY Pat 04/10/24 and has scheduled appointment with Dr. Fontana /12/04
Diagnostic data:
Chest x-ray 03/07/2024-no pneumothorax following bronchoscopy, near complete opacification right upper lobe
Chest x-ray 04/26/2024-approximately 0.5 cm right hilar mass associated postobstructive atelectasis right upper lobe
Chest x-ray 04/29/24-11 cm right hilar tumor with right upper lobe atelectasis
CT chest 02/19/24-3.8 cm ill-defined soft tissue mass right upper lobe suspicious for lung cancer with associated occlusion of the right upper lobe bronchus and partial atelectasis of the right upper lobe, lymphangitic spread of tumor within the
right upper lobe
CT chest 04/29/2024-no pulm embolism, 8.2 x 11.7 cm right hilar tumor with obstruction of the right upper lobe bronchus and right upper lobe atelectasis as well as greater than 50% narrowing of the right main pulmonary artery
PET scan 03/24/2024-lobular soft tissue mass right hilum extending into the right upper lobe measuring 6.5 x 11 cm with SUV max 34.9, 3.8 cm pretracheal lymph node with SUV 3.1
Lower extremity ultrasound 04/20/2024-no evidence for DVT in the left lower extremity
PFT 03/21/24: FVC 3.02/66%, FEV1 1.86/55%, ratio 62.� There is an 11% improvement in the FEV1 following bronchodilator.� TLC 5.00/71%, DLCO 15.97/58%.� Moderate obstruction, mild restriction, moderate gas exchange defect
Total time spent today was 36 minutes for this encounter. Time includes reviewing laboratory test/imaging results, reviewing pertinent medical records, obtaining and reviewing medical history, performing an appropriate exam, ordering medications,
tests and procedures. Time also includes documentation of this encounter, coordinating patient care and communicating with other healthcare professionals. Total time does not include separately billed tests performed on this date of service.
Subjective Data
-
Date of Service:
Date of Service: May 01, 2024
Chief Complaint: Pulmonary Follow Up
Subjective:
Patient seen and evaluated this morning. Still feels short of breath. Currently on room air breathing comfortably. Denies cough. Denies chest pain, ALMEIDA, nausea, fevers chills.
Review of Systems
General: Other (Negative unless mentioned above)
Objective Data
Data Reviewed
Vital Signs / I&O / Oxygen:
Vital Signs
Temp Pulse Resp BP Pulse Ox
97.5 F 106 16 164/70 97
05/01/24 07:06 05/01/24 08:31 05/01/24 07:17 05/01/24 08:31 05/01/24 07:17
Intake and Output
04/30/24 05/01/24 05/02/24
06:59 06:59 06:59
Intake Total 360 / 360 960 / 960
Output Total 600 / 600 3640 / 3640
Balance -240 / -240 -2680 / -2680
SaO2 97
Nasal Cannula flow liters per 2
minute
Physical Exam
General: Respiratory Distress (negative), Comfortable, Chills (negative) and Sweats (negative)
HEENT: Normocephalic and Anicteric
Cardiovascular: S1-S2 and Peripheral Edema (negative)
Respiratory: Wheeze (negative), Crackles (Bilaterally), Rhonchi (negative), Non-Labored Respirations, Stridor (negative) and Other (Diminished breath sounds in the right upper lobe)
GI: Soft, Non Distended, Non Tender and Normal Bowel Sounds
Neurology: AO x 3 and Tremors (negative)
Skin: Warm, Dry, Cyanosis (negative) and Jaundice (negative)
Labs/Micro/Reports
Lab Data
05/01/24 06:31
05/01/24 06:31
Microbiology
04/29/24 16:26 Nose MRSA Screen - Final
No Methicillin Resistant Staphylococcus aureus isolated.
[2024-05-01 10:31] LABS: Vitamin D, 25-OH*** 17.1 ng/mL (30-80)
[2024-05-01 10:44] LABS: TSH Reflex To Free T4 5.37 uIU/ml (0.47-4.68)
[2024-05-01 11:03] VITALS: BP 106/74
[2024-05-01 11:17] LABS: Free T4 1.07 ng/dl (0.78-2.19)
[2024-05-01 11:20] LABS: Folate 6.1 ng/ml (2.76-20); Vitamin B12 693 pg/ml (239-931)
[2024-05-01] MEDS: VITAMIN D3 (cholecalciferol) 25 MCG PO (11:38)
[2024-05-01 12:57] VITALS: BP 124/76; PULSE 111; O2SAT 94
[2024-05-01] MEDS: VENTOLIN NEBULES 2.5 MG INH ×2 (13:14→19:10)
[2024-05-01 15:07] VITALS: BP 111/68
--- NOTE | 2024-05-01 16:19 | CM ---
Spoke with patient's sister in law, Madelyn who was at patient's bedside. She stated that she feels that patient would do well in acute rehab. She wanted a referral sent to [facility]. Madelyn stated that patient has applied for Medicare and believes
he should be getting his card soon but is not sure when. Spoke with supervisor ship maintenance services who stated that referral has been sent to [facility] and she spoke with Myrtle in admissions/liason who stated that Acute Rehab does not take patient's
insurance.
Will explore [facility]. Will need order for PN&R.
Plan: Case management will continue to follow and assist with discharge planning. Acute vrs. SNF.
[2024-05-01] MEDS: LOVENOX 40 MG SC (17:17)
[2024-05-01] MEDS: ELAVIL 50 MG PO (21:33)
[2024-05-01] MEDS: LIPITOR 80 MG PO (21:33)
[2024-05-01 22:54] VITALS: BP 120/69
[2024-05-02] VITALS (7 sets, daily range): BP systolic 101–130; BP diastolic 65–78; PULSE 104; O2SAT 93; BMI 18.9
--- NOTE | 2024-05-02 06:21 | W.PN.HOSP.TC ---
Today's Communication/Plan
-
NPO for possible IR bx potential bone met as noted on MRI (provide patient agreeable, family coming to further discuss with patient)
cont baclofen gabapentin prn Tyelnol consider additional pain medication NSAID/Opiate if hand pain/cramping persists/recurrs
prednisone taper
PT/OT
PMR eval possible benefit acute rehab
Assessment / Plan
Assessment / Plan
Physical Exam
General: no acute distress, appears comfortable at this time.
HEENT: NormoCephalic, Moist mucous membranes and Atraumatic
Respiratory: clear to auscultation b/l, stable respiratory status on room air, exertional dyspnea noted
Cardiac: S1/S2 and Regular Rhythm; No Murmur or Rub
GI: Soft, Non Tender, Non Distended and Normal Bowel Sounds; No Organomegaly
Musculoskeletal: No Clubbing, No Cyanosis and No Edema
Skin: No Rash
Neuro: AO x 3
Psych: Calm
64M [place] CAD HTN HLD Lung Ca (due to start chemo) COPD hx Tobacco use recent prolonged hospitalization due to influenza pneumonia COPD exacerbation, discharged to SNF rehab 04/26/24 returns 04/29/24 due to acute chest pain with associate
shortness of breath since improved with prn nitro.
Currently CP free
CP : relieved by SL NTG
No acute ischemic changed in EKG
HX CAD with stents
HX HLD
Prior ECHO : LVEF of 55 to 60%. No major valvulopathy.
- c/w PROGRESSIVE CARE UNIT REGISTERED NURSE ASA, Lipitor, Metoprolol
- Troponin consistently wnl x4
- TLM monitor
-Cardio eval appreciated
-nitro prn chest pain
Dyspnea ; chronic and multifactorial
NEG CT for acute PE
RUL collapse from malignancy
HX COPD
Chr tobacco use - stop since last admission and at SNF
- Adequate POx on RA
-On oral prednisone slow taper course currently at 10 mg daily planned for 5 days, 05/06/24 last day for steroids
- maintain on nebulizers/Bronchodilators.
-Pulm eval appreciated
HX Right upper lung undifferentiated carcinoma
Underweight likely d/t acute illness possible malignancy related, wt since improved, cont to monitor
-Pathology and Genetic testing results reviewed - undifferentiated carcinoma
-scheduled for treatment as outpatient
-family history of lung cancer.
-follows w/ Dr. Benjamin [facility] and plan to get port-a-cath and eventual chemotherapy.
-Oncology Eval appreciated
Anemia
Prior Iron studies appreciated Anemia of Chronic Disease
- cont b12 supplementation.
- Monitor H&H, no acute bleeding noted
chronic back pain
-chronic lumbago, aggravated by cough
-already on steroids for pulm issues as above
-Lidocaine patches 2 lower back
-cont home gabapentin
-tylenol prn
-Lumbar MRI appreciated suggestive left hemisacrum metastasis planned for IR bx as per oncology, provided patient is agreeable (patient and family to discuss)
Severe Cramping hands b/l unclear etiology
-Baclofen 5 mg TID
-monitor and replete electrolytes as necessary
-noted resolve in the morning but seems to recur intermittently as day progresses
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
-monitor and titrate pain regimen accordingly, currently on scheduled Gabapentin and prn Tylenol (would discuss with [id number] patient's advocate before considering additional pain medication)
Vit D deficiency
supplement started, cont
autism spectrum disorder -ELIZABETH Madelyn and Brother Ed are health care advocates
Anxiety disorder
Essential Hypertension on toprol XL
OCD with cleaning
PT/OT eval appreciated SNF rehab, PMR eval requested for possible benefit Acute Rehab
Ensure supplement TID as patient takes at home per [id number]
DVT prophylaxis-Lovenox
CODE STATUS -Full code
Obs TLM
Discussed with patient and patient's [id number] Bel
I spent a total of 50 minutes with the patient or on the floor. More than 50% of this time involved counseling and coordination of care.
Anticipated Discharge: 24 - 48 hours
Subjective/Interval History
-
Date of Service: May 02, 2024
no acute distress. stable respiratory status on room air. sleeping at time of evaluation but easily woken. Denies hand cramping or significant pain at this time. per sister in law patient had severe hand cramping last night.
Objective Data
-
Labs:
Laboratory Results
05/02/24
06:00
WBC Pending
Hgb Pending
Hct Pending
Plt Count Pending
Sodium Pending
Potassium Pending
Chloride Pending
Carbon Dioxide Pending
BUN Pending
Creatinine Pending
Glucose Pending
Calcium Pending
Vital Signs:
Vital Signs
Temp Pulse Resp BP Pulse Ox
98.3 F 98 20 120/69 96
05/01/24 22:54 05/01/24 22:54 05/01/24 22:54 05/01/24 22:54 05/01/24 22:54
I&O
04/30/24 05/01/24 05/02/24
06:59 06:59 06:59
Intake Total 360 / 360 960 / 960 1620 / 1620
Output Total 600 / 600 3640 / 3640 1300 / 1300
Balance -240 / -240 -2680 / -2680 320 / 320
[2024-05-02 07:10] LABS: Hematocrit 29.6 % (39.0-52.0); Hemoglobin 9.3 g/dL (13.0-18.0); Mean Corp Hgb Conc. 31.4 g/dL (33.0-37.0); Mean Corpuscular Hgb 25.6 pg (27.0-31.0); Mean Corpuscular Volume 81.5 fL (80.0-94.0); Mean Platelet Volume 8.9 fL (7.4-10.4); Platelet Count 353 10^3/uL (130-400); Red Blood Cell Count 3.63 10^6/uL (4.70-6.10); Red Cell Dist. Width 19.4 % (11.5-14.5); White Blood Cell Count 7.6 10^3/uL (4.8-10.8)
[2024-05-02 07:34] LABS: Blood Urea Nitrogen 11 mg/dl (9-20); Calcium 8.3 mg/dl (8.4-10.2); Carbon Dioxide 30 mmol/L (22-30); Chloride 96 mmol/L (98-107); Estimated Creatinine Clearance 101 ml/min; Glucose 76 mg/dl (70-99); Magnesium 1.9 mg/dl (1.6-2.3); Phosphorus 3.9 mg/dl (2.5-4.5); Potassium 4.1 mmol/L (3.5-5.1); Sodium 132 mmol/L (135-145); eGFR > 60.00
--- NOTE | 2024-05-02 07:34 | W.PN.ONC2 ---
Today's Communication / Plan
-
.
Impression
Impression
Stage IIIb NSCLC (cT4cN2)
RUL tumor is associated with obstruction of the right upper lobe bronchus
Recent acute COPD exacerbation
Recent Influenza A infection
AOCD/malignancy. No EVA, b12 or folate deficiency
autism spectrum disorder -ELIZABETH Madelyn and Brother Ed are health care advocates
lower back pain -MRI with marrow replacing lesion throughout the left upper hemisacrum with extension into the left-sided neural foramen
Plan
Plan
Patient with stage IIIb lung cancer, however, if MRI finding of left hemisacrum met then would be stage IV
IR bx left hemisacrum this afternoon d/w IR, hospitalist, pt, and Madelyn/Ed. NPO until after bx today
COPD, not in acute exacerbation. continues prednisone taper per pulmonary
Pulmonary plans to hold off on intervention for now
discharge to SNF and readmission have precluded initiation of chemoradiation. Improving ambulatory status on PT re-evaluation, dispo SNF vs acute rehab vs home with services d/w case management
Goals remain restorative, optimize performance status and nutritional statu
pain management, currently using lidoderm patch, tyleonl prn, and gabapentin
No objection to discharge after biopsy today
Subjective/Objective
Subjective
continues with left lower back pain
improved functional status with PT re-evaluation yesterday
Vital Signs:
Vital Signs
Temp Pulse Resp BP Pulse Ox
98.3 F 98 20 120/69 96
05/01/24 22:54 05/01/24 22:54 05/01/24 22:54 05/01/24 22:54 05/01/24 22:54
Lab Results:
Laboratory Data
WBC 7.6 10^3/uL (4.8-10.8) 05/02/24 06:37
Hgb 9.3 g/dL (13.0-18.0) L 05/02/24 06:37
Plt Count 353 10^3/uL (130-400) 05/02/24 06:37
eGFR > 60.00 05/01/24 06:31
Physical Exam
General: Well Developed, Well Nourished, No Apparent Distress and Comfortable
HEENT: Negative Jaundice
Cardiology: Normal Sinus Rhythm, S1 and S2
Pulmonary: Clear; Negative Rales
GI: Soft and Normal Bowel Sounds
Extremities: No C/C/E
Neurology: Non Focal
Orders
Orders
Orders From Last 24 Hours
05/01/24 11:54
MR Lumbar W/o & With Contrast Routine
[2024-05-02] MEDS: VENTOLIN NEBULES 2.5 MG INH ×2 (07:46→13:24)
[2024-05-02] MEDS: SPIRIVA RESPIMAT 2.5 MCG 2 PUFF INH (07:47)
[2024-05-02] MEDS: STRIVERDI RESPIMAT 2 PUFF INH (07:47)
[2024-05-02] MEDS: ASPIR LOW (ENTERIC COATED) 81 MG PO (08:21)
[2024-05-02] MEDS: VITAMIN D3 (cholecalciferol) 25 MCG PO (08:21)
[2024-05-02] MEDS: NEURONTIN 400 MG PO ×2 (08:21→21:39)
[2024-05-02] MEDS: VITAMIN B-12 1000 MCG PO (08:21)
[2024-05-02] MEDS: PROTONIX 40 MG PO (08:21)
[2024-05-02] MEDS: DELTASONE 10 MG PO (08:22)
[2024-05-02] MEDS: LIORESAL 5 MG PO ×2 (08:22→21:36)
[2024-05-02] MEDS: TOPROL XL 25 MG PO (08:22)
[2024-05-02] MEDS: LIDOCAINE 4% PATCH 2 PATCH TOPICAL (08:23)
--- NOTE | 2024-05-02 08:25 | W.PN.PUL3 ---
Today's Communication / Plan
-
Continue with nebulized albuterol with Striverdi + spiriva --> resume home inhalers upon discharge with Anoro and prn albuterol
Up OOB as tolerated
Pain control
Maintain SpO2 88-95%
Awaiting biopsy today by IR of left hemisacrum due to abnormal lumbar spine MRI from 05/01/2024 - c/f metastasis
Outpatient evaluation by oncology
No current need for interventional pulmonary procedure as he is on room air breathing comfortably
No additional recommendations at this time. Pulmonary service will now sign off. He should keep appointment with our office on 06/18/[address] Fontana . Please reconsult if there are any additional questions/concerns, or if patient's respiratory
status deteriorates.
Assessment
-
64-year-old former smoking male with underlying COPD recently diagnosed with lung cancer and recently admitted with influenza and COPD exacerbation recovering at [facility] for rehab and Emma presents with shortness of breath and chest pain-CT
with airway obstruction-pulmonary consulted for potential bronchoscopic role for airway obstruction 04/30/2024.
Chest pain-atypical
Lung cancer-right upper lobe undifferentiated carcinoma with right upper lobe airway obstruction and subsequent atelectasis
Anemia
Thrombocytosis
Conditions present prior to admission:
CAD/stent-[facility] 2016
Hypertension.
Hyperlipidemia.
COPD-FEV1 1.86-55%, lymph percent BD response, on anoro and Albuterol
Lung cancer-, stage IIIB bronch 03/07/24-poorly differentiated undifferentiated carcinoma, station 4R and 7, also positive for carcinoma-following oncology, Dr. Benjamin-has not started treatment as he developed influenza prior
Cigarette [id number]-axoc-year-ongoing until very recently
Depression.
Radiculopathy.
Ischemic cardiomyopathy.
Anxiety
Depression.
CVA.
Autism.
Lumbar radiculopathy.
Hydrocele.
Plan
Respiratory status is relatively stable compared to his baseline-recovering from influenza with underlying COPD-currently not in an acute exacerbation
Multiple CTs of the chest, PET scan, and radiographs were personally reviewed
Patient has chronic and slightly progressive right upper lobe atelectasis from yet untreated and progressive undifferentiated carcinoma.
Fairly asymptomatic at this point and recommend stabilizing and initiating therapeutics as soon as his performance status improves --> defer this to Oncology
If interventional pulmonary is needed such as pulmonary stent vs cryoablation, then will need to TRX to [place] vs other tertiary care center. Currently on room air, no need for intervention at this juncture. Continue to monitor
Supplemental oxygen if needed-currently on room air and breathing comfortably with SpO2 95% --> keep SpO2 88-95%
Incentive spirometry encouraged q1hr while awake
Aspiration precautions
Changed DuoNebs to nebulized albuterol TID with striverdi + spiriva
Outpatient anoro and Albuterol as needed
Prednisone taper - currently on 10mg daily
Monitor hemoglobin.
Transfuse as needed to keep Hb>7
Smoking cessation counseling ongoing
Oncology consulted and he is awaiting a IR biopsy of his left hemisacrum due to abnormal lumbar spine MRI from 05/01/2024 showing suspected metastatic lesion.
DVT prophylaxis-on Lovenox.
Nutrition
Early mobilization.
Outpatient oncological follow-up.
Outpatient pulmonary follow-up
Patient last saw Dr. Fontana at 03/21/24 and then BETHANY Pat 04/10/24 and has scheduled appointment with Dr. Fontana on 06/18/2024
No additional recommendations at this time. Pulmonary service will now sign off. Thank you for allowing us to be involved in the care of this patient. Please reconsult if there are any additional questions/concerns, or if patient's respiratory
status deteriorates.
Diagnostic data:
Chest x-ray 03/07/2024-no pneumothorax following bronchoscopy, near complete opacification right upper lobe
Chest x-ray 04/26/2024-approximately 0.5 cm right hilar mass associated postobstructive atelectasis right upper lobe
Chest x-ray 04/29/24-11 cm right hilar tumor with right upper lobe atelectasis
CT chest 02/19/24-3.8 cm ill-defined soft tissue mass right upper lobe suspicious for lung cancer with associated occlusion of the right upper lobe bronchus and partial atelectasis of the right upper lobe, lymphangitic spread of tumor within the
right upper lobe
CT chest 04/29/2024-no pulm embolism, 8.2 x 11.7 cm right hilar tumor with obstruction of the right upper lobe bronchus and right upper lobe atelectasis as well as greater than 50% narrowing of the right main pulmonary artery
PET scan 03/24/2024-lobular soft tissue mass right hilum extending into the right upper lobe measuring 6.5 x 11 cm with SUV max 34.9, 3.8 cm pretracheal lymph node with SUV 3.1
Lower extremity ultrasound 04/20/2024-no evidence for DVT in the left lower extremity
PFT 03/21/24: FVC 3.02/66%, FEV1 1.86/55%, ratio 62.� There is an 11% improvement in the FEV1 following bronchodilator.� TLC 5.00/71%, DLCO 15.97/58%.� Moderate obstruction, mild restriction, moderate gas exchange defect
Lumbar spine MRI 05/01/2024: Large marrow replacing lesion throughout the left upper hemisacrum with extension into the left-sided neural foramen as described. Findings are most in keeping with neoplasm such as myeloma/plasmacytoma or metastasis.
Total time spent today was 28 minutes for this encounter. Time includes reviewing laboratory test/imaging results, reviewing pertinent medical records, obtaining and reviewing medical history, performing an appropriate exam, ordering medications,
tests and procedures. Time also includes documentation of this encounter, coordinating patient care and communicating with other healthcare professionals. Total time does not include separately billed tests performed on this date of service.
Subjective Data
-
Date of Service:
Date of Service: May 02, 2024
Chief Complaint: Pulmonary Follow Up
Subjective:
Patient was seen and evaluated this morning. Spoke with family who was at bedside. He is awaiting biopsy of left hemisacrum today with IR. This is due to a lumbar spine MRI showing marrow replacing lesion throughout the left upper hemisacrum with
extension into the left-sided neural foramen. He currently feels well with his breathing, short of breath with exertion but breathing well at rest. Has intermittent cough but not bothersome. I answered all the patient and the family's questions.
Review of Systems
General: Other (Negative unless mentioned above)
Objective Data
Data Reviewed
Vital Signs / I&O / Oxygen:
Vital Signs
Temp Pulse Resp BP Pulse Ox
97.8 F 68 16 125/72 95
05/02/24 07:33 05/02/24 07:51 05/02/24 07:51 05/02/24 07:40 05/02/24 07:51
Intake and Output
05/01/24 05/02/24 05/03/24
06:59 06:59 06:59
Intake Total 960 / 960 1620 / 1620
Output Total 3640 / 3640 1300 / 1300
Balance -2680 / -2680 320 / 320
SaO2 95
Nasal Cannula flow liters per 2
minute
Physical Exam
General: Respiratory Distress (negative), Comfortable, Chills (negative) and Sweats (negative)
HEENT: Normocephalic and Anicteric
Cardiovascular: S1-S2 and Peripheral Edema (negative)
Respiratory: Wheeze (negative), Crackles (Bilaterally), Rhonchi (negative), Non-Labored Respirations, Stridor (negative) and Other (Diminished breath sounds in the right upper lobe)
GI: Soft, Non Distended, Non Tender and Normal Bowel Sounds
Neurology: AO x 3 and Tremors (negative)
Skin: Warm, Dry, Cyanosis (negative) and Jaundice (negative)
Labs/Micro/Reports
Lab Data
05/02/24 06:37
05/02/24 06:37
Microbiology
04/29/24 16:26 Nose MRSA Screen - Final
No Methicillin Resistant Staphylococcus aureus isolated.
--- NOTE | 2024-05-02 11:48 | CM ---
Spoke with Myrtle from [facility].
CM explained patient will be medicare primary hopefully starting tomorrow.
Family interested in acute rehab.
PMR consultation pending.
Per Myrtle they will re-review with PMR consult.
Plan: possible rehab
[2024-05-02 12:13] LABS: INR 0.97; PT 13.2 Sec (11.4-14.6)
--- NOTE | 2024-05-02 13:31 | CM ---
Spoke with patient's sister in law who stated that she has been on the phone with Social Security and was advised by a community relations representative named, 'Mrs. Taylor' that patient will have Medicare starting tomorrow. She was unable to fax information however
stated that the information will be able to be pulled tomorrow. Patient's sister in law spoke with Tiffanie Macdonald in [facility] who stated that she will update the financial dept.
Advised patient's sister in law that there may not be a possibility for patient to receive chemo while in rehab pending where he goes. She expressed understanding. CM candle making supervisor spoke with Myrtle in admissions at [facility] to update. She stated that
she can look over patient's clinical once patient gets evaluated by PN&R.
CM director updated.
Plan: Case management will continue to follow and assist with discharge planning. Skilled vrs Acute Rehab when patient is stable for discharge.
--- NOTE | 2024-05-02 16:46 | CON.MD ---
Consultation - Medical
-
Referring Provider:�Dr. Justin Briceno
Chief Complaint:�Debility with lung cancer
�
History of Present Illness:�64-year-old male with PMH (as below) presented to [facility] on 04/10/2024 with worsening shortness of breath, headache, fever, chills. He tested positive for flu. Treated with Tamiflu, bronchodilators,
Decadron. [place] to have an acute COPD exacerbation. Also noted with likely iron deficiency anemia started on a B12 supplement. Echocardiogram with EF 55-60%. He was discharged to a intermediate facility.
He was readmitted to [facility] on 04/29/2024 with chest pain and shortness of breath. Chest pain improved with nitroglycerin and full dose aspirin. Noted with significant cramping of bilateral hands and started on baclofen. Troponin was
within normal limits x 4. Not thought to be related to acute coronary syndrome. MRI of the lumbar spine with marrow replacing lesion throughout the left upper Ernesto sacrum and extension into the left-sided neural foramen. Biopsy scheduled.
Patient sedated after having biopsy procedure. Spoke with his nurse who said that he was able to be up and ambulating. He needs a little bit of help but not much. She feels he would benefit from some inpatient rehab. Has pain in the low back
area, otherwise doing pretty well.
�
Past Medical History:�depression, CAD with LA, hyperlipidemia, ischemic cardiomyopathy, COPD, stage IIIb (cT4cN2) right upper lobe NSCLC, hypertension, anxiety coronary artery disease, degenerative disc disease, CVA, hydrocele, sacral dysfunction,
autism, lumbar radiculopathy
Procedure History:�Cardiac stent
Family History:�CAD (Father), Cancer (Mother: Ovarian/cervical cancer; Brother: Lung cancer) and Other (Brother: Sarcoidosis; Sister: Alcoholic; Brother: MVA)
�
Social History:�
Functional Level Premorbidly:�Independent with all activities�
Functional Level Currently:�Supervision for transfers and ADLs. Min assist ambulate 50 feet x 3 with rolling walker.
�
Tobacco:�Former
Alcohol:�Denies�
Drug use:�Denies�
�
Lives with:�Alone
24-hour assistance available:�No
Number of floors:�1
# steps to enter:�0
Driving:�Yes
Occupation:�Not working
�
�
Allergies:�
Allergy/AdvReac Type Severity Reaction Status Date / Time
Iodinated Contrast Media Allergy Hives Verified 04/30/24 18:33
onion Allergy Rash Verified 04/29/24 08:20
�
Review of Systems:�Unable to get given patient with lethargy after procedure
Constitutional: (x) Normal _
Eye: (x) Normal _
Ear/Nose/Throat: (x) Normal _
Respiratory: (x) Normal _
Cardiovascular: (x) Normal _
Gastrointestinal: (x) Normal _
Genitourinary: (x) Normal _
Musculoskeletal: (x) Normal _
Integumentary: (x) Normal _
Neurologic: (x) Normal _
Psychiatric: (x) Normal _
Endocrine: (x) Normal _
Hematologic/Lymphatic: (x) Normal _
Allergic/Immunologic: (x) Normal _
�
Medications:�
Active Current Visit Medication List
Category Date Time Status
Acetaminophen [Tylenol] Med 04/30/24 23:29 Active
650 mg PO Q4HPRN PRN
Albuterol Nebs [Ventolin Nebules] Med 05/01/24 14:00 Active
2.5 mg INH R TID
Amitriptyline [Elavil] Med 04/29/24 22:00 Active
50 mg PO HS
Aspirin Low Dose EC [Aspir Low (Enteric Coated)] Med 04/30/24 08:00 Active
81 mg PO DAILY
Atorvastatin [Lipitor] Med 04/29/24 22:00 Active
80 mg PO HS
Baclofen [Lioresal] Med 04/30/24 22:00 Active
5 mg PO TID
Bisacodyl [Dulcolax] Med 04/29/24 15:50 Active
10 mg RECTAL DAILYPRN PRN
Cholecalciferol (Vitamin D3) [VITAMIN D3 ( Med 05/01/24 11:00 Active
cholecalciferol)]
25 mcg PO DAILY
Cyanocobalamin [Vitamin B-12] Med 04/30/24 08:00 Active
1,000 mcg PO DAILY
Enoxaparin Sodium [Lovenox] Med 04/29/24 18:00 Active
40 mg SC QPM
Gabapentin [Neurontin] Med 04/29/24 16:00 Active
400 mg PO TID
Guaifenesin/Dextromethorphan [Robitussin Dm] Med 04/29/24 15:57 Active
10 ml PO Q4HPRN PRN
Ipratropium/Albuterol Sulfate [Duoneb] Med 04/29/24 15:50 Active
3 ml INH R Q4HPRN PRN
Lidocaine [Lidocaine 4% Patch] Med 04/30/24 11:30 Active
2 patch TOPICAL DAILY
Metoprolol Xl [Toprol Xl] Med 04/30/24 08:00 Active
25 mg PO DAILY
Nitroglycerin Sublingual [Nitrostat (Sublingual)] Med 04/30/24 11:13 Active
0.4 mg SL [id number] PRN
Olodaterol HCl [Striverdi Respimat] Med 04/30/24 08:00 Active
2 puff INH R DAILY
Pantoprazole [Protonix] Med 04/30/24 08:00 Active
40 mg PO DAILY
Prednisone [Deltasone] Med 05/02/24 08:00 Active
10 mg PO DAILY
Remove Patch [Remove Lidocaine Patch] Med 04/30/24 20:00 Active
See Dose Instructions REMOVE DAILY@1999
Tiotropium [place] 2.5 Mcg [Spiriva Respimat 2.5 Mcg] Med 04/30/24 08:00 Active
2 puff INH R DAILY
�
Vitals:�
Temp Pulse Resp BP Pulse Ox
97.8 F 101 12 112/65 94
05/02/24 14:54 05/02/24 16:05 05/02/24 16:05 05/02/24 16:05 05/02/24 16:05
Height 5 ft 9 in
Actual Weight 57.969 kg
Body Mass Index (BMI) 18.9
�
Physical Exam:�
General Appearance/Observation: Well-developed, well-nourished male lying in bed with covers over his head. Appears lethargic. Limited exam.
�
Eyes: Conjunctiva/Lids: normal���� Pupils: pupils equal round and reactive to light
Ears/Nose/Throat: oral mucosa moist,� throat dry.������������ Lips/Teeth/Gums: normal�
Cardiovascular: Heart: regular, no murmur�
Pulses: dorsalis pedis 2+ bilaterally�
Respiratory: Respiratory Effort/Chest Expansion: normal������� Auscultation: Clear to auscultation bilaterally�
Gastrointestinal: abdomen not tender, no distension, normal abdominal bowel sounds
Genitourinary: No Hardy�
Extremities:�Edema: None�Cyanosis: None�Trophic�changes: None
-Has muscle atrophy of bilateral lower extremities.
Neurology Exam:
Orientation: Lethargic after procedure
Memory: Unable to asses
Cranial Nerves:
�� CNII:�Pupillary light reflex: Intact����Visual Field: Unable to assess
�� CN III, IV, : Extraocular muscles: Unable to assess
�� CN V:�Facial Sensation: Unable to assess
�� CN VII:�Facial movement: Symmetric
�� CN VIII:�Hearing: Unable to assess
�� CN IX/X:�Speech & swallow: Unable to assess,�Position of Uvula: Unable to assess
�� CN XI:�Shoulder shrug: Unable to assess
�� CN XII:�Tongue protrusion: Unable to assess
Sensory:
�� Light touch: Unable to assess
Musculoskeletal:
Motor: (Manual muscle scale 0-5)�able to move arms and legs but not to command with lethargy
Tone: Normal in all extremities�
�
Lab Results
Laboratory Data
05/02/24 06:37
05/02/24 06:37
PT 13.2 Sec (11.4-14.6) 05/02/24 11:39
INR 0.97 05/02/24 11:39
Total Bilirubin 0.6 mg/dl (0.2-1.3) 04/30/24 06:37
AST 29 U/L (17-59) 04/30/24 06:37
ALT 61 U/L (0-50) H 04/30/24 06:37
Alkaline Phosphatase 99 U/L (38-126) 04/30/24 06:37
Total Protein 6.0 g/dl (6.3-8.2) L 04/30/24 06:37
Albumin 2.7 g/dl (3.5-5.0) L 04/30/24 06:37
�
Diagnostic Results:�as per HPI�
�
Assessment
64-year-old male PMH (depression, CAD with LA, hyperlipidemia, ischemic cardiomyopathy, COPD, stage IIIb (cT4cN2) right upper lobe NSCLC, hypertension, anxiety coronary artery disease, degenerative disc disease, CVA, hydrocele, sacral dysfunction,
autism, lumbar radiculopathy�) with recent lung cancer diagnosis with recent shortness of breath which has improved, chest pain has resolved, low back pain with possible metastatic lesion in the left upper hemisacrum with ADL and ambulatory
dysfunction.
Plan�
PM&R�PT/OT to increase independence with ADLs, improve balance, coordination, endurance, strength, mobility, community reintegration, decreased burden of care on others and family education.�
�
Lung cancer: Plan for chemo and radiation, needs port.
Low back pain with left upper hemisacrum lesion into the left sided neuroforamina: Had biopsy today which is why he is currently lethargic. Concern for metastatic disease. Pain control.
ADL and ambulatory dysfunction: Spoke with his nurse and he is overall doing pretty well still needs a little bit of help.
-Baclofen as needed for spasms
-Also on gabapentin 400 mg 3 times daily.
Chest pain: Negative workup, could be musculoskeletal in nature has since resolved.
COPD exacerbation: On prednisone. Spiriva
Anemia: Management per primary team. On B12.
�
Psych: Psychology consult.� Monitor mood, adjust medications as needed.�
Skin: monitor for pressure sores/rashes/lesions.�
Pain: acetaminophen or oxycodone as needed.�
Bowel: Monitor bowels medications as necessary
Bladder: No urinary retention concerns noted
GI Prophylaxis: Pantoprazole�
DVT Prophylaxis: Mechanical and Lovenox
Pulmonary: Incentive spirometry�
Safety: Continue to reinforce assistance with all transfers.�
Code Status:� Full code�
Dispo�(date/plan/equipment needs): Home with family care.� Social history reviewed.�
Functional and Medical Goals:�Modified Independent with ADL�s, ambulation, transfers
Discharge Destination:�penitentiary facility
A total of 50 minutes were spent with the patient preparing for the evaluation, obtaining history, performing examination and evaluation, counseling, data review, case management, care coordination, order runner, and EMR documentation.
�
Thank you for allowing me to care for your patient. Please contact me with any questions or concerns. Call the patient
--- NOTE | 2024-05-02 17:03 | PTCARENOTE ---
Pt returend back from IR. Bandaid in place, CDI. Pt is tired but arouseable, currently sleeping. VSS. No complaints at this time. Call campbell is within reach.
[2024-05-02] MEDS: VENTOLIN NEBULES INH (17:13)
[2024-05-02] MEDS: LOVENOX 40 MG SC (18:14)
[2024-05-02] MEDS: LIORESAL PO (18:17)
[2024-05-02] MEDS: NEURONTIN PO (18:17)
[2024-05-02] MEDS: ELAVIL 50 MG PO (21:36)
[2024-05-02] MEDS: LIPITOR 80 MG PO (21:36)
[2024-05-03] MEDS: DUONEB 3 ML INH (03:11)
[2024-05-03 06:00] VITALS: BMI 18.8
[2024-05-03 07:05] VITALS: BP 121/69
[2024-05-03] MEDS: VENTOLIN NEBULES 2.5 MG INH ×3 (07:15→18:06)
[2024-05-03] MEDS: SPIRIVA RESPIMAT 2.5 MCG 2 PUFF INH (07:16)
[2024-05-03] MEDS: STRIVERDI RESPIMAT 2 PUFF INH (07:16)
[2024-05-03 07:46] LABS: Hematocrit 31.3 % (39.0-52.0); Hemoglobin 9.8 g/dL (13.0-18.0); Mean Corp Hgb Conc. 31.3 g/dL (33.0-37.0); Mean Corpuscular Hgb 24.9 pg (27.0-31.0); Mean Corpuscular Volume 79.6 fL (80.0-94.0); Mean Platelet Volume 9.5 fL (7.4-10.4); Platelet Count 360 10^3/uL (130-400); Red Blood Cell Count 3.93 10^6/uL (4.70-6.10); Red Cell Dist. Width 19.3 % (11.5-14.5); White Blood Cell Count 7.1 10^3/uL (4.8-10.8)
[2024-05-03 08:05] LABS: Blood Urea Nitrogen 11 mg/dl (9-20); Calcium 7.8 mg/dl (8.4-10.2); Carbon Dioxide 29 mmol/L (22-30); Chloride 99 mmol/L (98-107); Estimated Creatinine Clearance 100 ml/min; Glucose 102 mg/dl (70-99); Magnesium 1.9 mg/dl (1.6-2.3); Phosphorus 3.6 mg/dl (2.5-4.5); Potassium 3.9 mmol/L (3.5-5.1); Sodium 131 mmol/L (135-145); eGFR > 60.00
[2024-05-03] MEDS: LIDOCAINE 4% PATCH 2 PATCH TOPICAL (08:22)
[2024-05-03] MEDS: LIORESAL 5 MG PO ×3 (08:31→21:17)
[2024-05-03] MEDS: VITAMIN D3 (cholecalciferol) 25 MCG PO (08:31)
[2024-05-03] MEDS: TOPROL XL 25 MG PO (08:31)
[2024-05-03] MEDS: ASPIR LOW (ENTERIC COATED) 81 MG PO (08:31)
[2024-05-03] MEDS: PROTONIX 40 MG PO (08:31)
[2024-05-03] MEDS: NEURONTIN 400 MG PO ×3 (08:31→21:17)
[2024-05-03] MEDS: DELTASONE 10 MG PO (08:31)
[2024-05-03] MEDS: VITAMIN B-12 1000 MCG PO (08:33)
--- NOTE | 2024-05-03 10:22 | W.PN.ONC ---
Today's Communication / Plan
-
Patient with stage IIIb lung cancer, however, if MRI finding of left hemisacrum met then would be stage IV
IR bx biopsy results pending
COPD, not in acute exacerbation. continues prednisone taper per pulmonary
Pulmonary plans to hold off on intervention for now
Discharge to SNF and readmission have precluded initiation of chemoradiation.
Improving ambulatory status on PT re-evaluation, dispo SNF vs acute rehab vs home with services d/w case management
Goals remain restorative, optimize performance status and nutritional status
Pain management, currently using lidoderm patch, tyleonl prn, and gabapentin
No objection to discharge will need short order follow-up to initiate CRRT to prevent obstructive pneumonia however goals of care would be palliative if biopsy positive
Impression
Impression
Stage IIIb NSCLC (cT4cN2)
RUL tumor is associated with obstruction of the right upper lobe bronchus
Recent acute COPD exacerbation
Recent Influenza A infection
AOCD/malignancy. No EVA, b12 or folate deficiency
autism spectrum disorder -ELIZABETH Madelyn and Brother Ed are health care advocates
lower back pain -MRI with marrow replacing lesion throughout the left upper hemisacrum with extension into the left-sided neural foramen
Subjective/Objective
Subjective/Objective
Admits to fatigue today. Denies cough or shortness of breath.
Vital Signs:
Vital Signs
Temp Pulse Resp BP Pulse Ox
99.0 F 87 16 121/69 96
05/03/24 07:05 05/03/24 07:19 05/03/24 07:19 05/03/24 07:05 05/03/24 07:19
Physical exam unchanged
Lab Results:
Laboratory Data
WBC 7.1 10^3/uL (4.8-10.8) 05/03/24 07:22
Hgb 9.8 g/dL (13.0-18.0) L 05/03/24 07:22
Plt Count 360 10^3/uL (130-400) 05/03/24 07:22
PT 13.2 Sec (11.4-14.6) 05/02/24 11:39
INR 0.97 05/02/24 11:39
eGFR > 60.00 05/03/24 07:22
[2024-05-03 11:27] VITALS: BP 128/67; PULSE 110; O2SAT 93
--- NOTE | 2024-05-03 12:54 | W.PN.HOSP.TC ---
Today's Communication/Plan
-
see A/P
Assessment / Plan
Assessment / Plan
64 M PMH CAD, HTN, HLD, Lung Ca (due to start chemo), COPD, hx Tobacco use, recent prolonged hospitalization due to influenza pneumonia, COPD exacerbation, discharged to SNF rehab 04/26/24; returned 04/29/24 due to acute chest pain with associated
shortness of breath improved with prn nitro.
A/P:
# CP relieved by SL NTG
# HX CAD with stents
# HX HLD
Currently CP free
No acute ischemic changed in EKG
Troponin consistently wnl x4
Prior ECHO: LVEF 55 to 60%. No major valvulopathy.
c/w [employer] SUPERVISOR ASA, Lipitor, Metoprolol
Off tele
Cardio eval appreciated
nitro prn chest pain
# Dyspnea, chronic and multifactorial
# HX COPD
# Chr tobacco use - stopped since last admission and at SNF
# RUL collapse from malignancy
NEG CT for acute PE
Adequate POx on RA
On oral prednisone slow taper course currently at 10 mg daily planned for 5 days, 05/06/24 last day for steroids
maintain on nebulizers/Bronchodilators.
Pulm eval appreciated
# HX Right upper lung undifferentiated carcinoma
# family history of lung cancer.
# Underweight likely d/t acute illness possible malignancy related
wt since improved, cont to monitor
Pathology and Genetic testing results reviewed - undifferentiated carcinoma
scheduled for treatment as outpatient. Follows w/ Dr. [facility] [place] [facility] and plan to get port-a-cath and eventual chemotherapy.
Oncology Eval appreciated
Ensure supplement TID as patient takes at home per [id number]
# Anemia of Chronic Disease
Iron studies noted
B12 WNL, can cont home b12 supplementation.
# Chronic back pain, chronic lumbago, aggravated by cough
already on steroids for pulm issues as above
Lidocaine patches 2 lower back, cont home gabapentin, tylenol prn
Lumbar MRI suggestive left hemisacrum metastasis
s/p IR left sacral mass biopsy 05/02
Follow path report (can be done outpt)
# Severe intermittent cramping BL hands, unclear etiology
Baclofen 5 mg TID
monitor and replete electrolytes as necessary
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
monitor and titrate pain regimen accordingly, currently on scheduled Gabapentin and prn Tylenol (would discuss with [id number] patient's advocate before considering additional pain medication)
# Vit D deficiency
supplement started, cont
# autism spectrum disorder
# Anxiety disorder
# OCD with cleaning
ELIZABETH Joshi and Brother Gunnar are health care advocates
# Essential Hypertension on toprol XL
DVT prophylaxis-Lovenox SQ
CODE STATUS -Full code
Dispo: Skilled, not accepted by [facility]
Discussed with patient
d/w patient's [id number] Madelyn on the phone
total time spent 51 min
Anticipated Discharge: Within 24 hours
Subjective/Interval History
-
Date of Service: May 03, 2024
Objective Data
-
Labs:
Laboratory Results
05/03/24
07:22
WBC 7.1
Hgb 9.8 L
Hct 31.3 L
Plt Count 360
Sodium 131 L
Potassium 3.9
Chloride 99
Carbon Dioxide 29
BUN 11
Creatinine 0.6 L
Glucose 102 H
Calcium 7.8 L
Vital Signs:
Vital Signs
Temp Pulse Resp BP Pulse Ox
37.2 C 87 16 121/69 96
05/03/24 07:05 05/03/24 07:19 05/03/24 07:19 05/03/24 07:05 05/03/24 07:19
I&O
05/02/24 05/03/24 05/04/24
06:59 06:59 06:59
Intake Total 1620 / 1620 1200 / 1200
Output Total 1300 / 1300 1350 / 1350
Balance 320 / 320 -150 / -150
Review of Systems
-
All other systems: Reviewed and negative
Physical Exam
-
General: Well Developed, Well Nourished, No Apparent Distress, Conversant, Appears Chronically Ill and Cachectic
HEENT: Normocephalic and Atraumatic
Respiratory: Clear to Auscultation and Non Labored Respirations; Negative Crackles or Accessory Resp Muscle Use
Cardiac: Regular Rhythm and S1/S2; Negative Murmur or Rub
GI: Soft, Nontender, Nondistended and Normal Bowel Sounds
Neuro: Awake, Alert and Oriented
Psych: Calm
Data Reviewed
-
Labs: Labs Reviewed by me
[2024-05-03 15:01] VITALS: BP 131/77
[2024-05-03] MEDS: LOVENOX 40 MG SC (17:22)
[2024-05-03] MEDS: ZOFRAN 4 MG IV (18:26)
[2024-05-03] MEDS: LIPITOR 80 MG PO (21:17)
[2024-05-03] MEDS: ELAVIL 50 MG PO (21:17)
[2024-05-03] MEDS: TYLENOL 650 MG PO (21:18)
[2024-05-03 23:00] VITALS: BP 119/74
[2024-05-04 00:20] VITALS: BMI 19.0
[2024-05-04 00:21] VITALS: BP 119/74
[2024-05-04 05:23] LABS: Hematocrit 30.3 % (39.0-52.0); Hemoglobin 9.5 g/dL (13.0-18.0); Mean Corp Hgb Conc. 31.4 g/dL (33.0-37.0); Mean Corpuscular Volume 79.7 fL (80.0-94.0); Mean Platelet Volume 9.7 fL (7.4-10.4); Platelet Count 351 10^3/uL (130-400); Red Cell Dist. Width 19.3 % (11.5-14.5); White Blood Cell Count 7.8 10^3/uL (4.8-10.8)
[2024-05-04] MEDS: STRIVERDI RESPIMAT 2 PUFF INH (07:17)
[2024-05-04] MEDS: SPIRIVA RESPIMAT 2.5 MCG 2 PUFF INH (07:17)
[2024-05-04] MEDS: VENTOLIN NEBULES 2.5 MG INH ×3 (07:17→19:28)
[2024-05-04 07:30] VITALS: BP 120/71
[2024-05-04 07:48] LABS: Blood Urea Nitrogen 11 mg/dl (9-20); Calcium 8.1 mg/dl (8.4-10.2); Carbon Dioxide 28 mmol/L (22-30); Chloride 100 mmol/L (98-107); Estimated Creatinine Clearance 101 ml/min; Glucose 91 mg/dl (70-99); Phosphorus 3.7 mg/dl (2.5-4.5); Potassium 4.3 mmol/L (3.5-5.1); Sodium 132 mmol/L (135-145); eGFR > 60.00
[2024-05-04] MEDS: LIDOCAINE 4% PATCH 2 PATCH TOPICAL (08:27)
[2024-05-04] MEDS: VITAMIN B-12 1000 MCG PO (08:30)
[2024-05-04] MEDS: ASPIR LOW (ENTERIC COATED) 81 MG PO (08:30)
[2024-05-04] MEDS: DELTASONE 10 MG PO (08:30)
[2024-05-04] MEDS: NEURONTIN 400 MG PO ×3 (08:30→21:00)
[2024-05-04] MEDS: VITAMIN D3 (cholecalciferol) 25 MCG PO (08:30)
[2024-05-04] MEDS: PROTONIX 40 MG PO (08:30)
[2024-05-04] MEDS: TOPROL XL 25 MG PO (08:30)
[2024-05-04] MEDS: LIORESAL 5 MG PO ×3 (08:30→20:59)
--- NOTE | 2024-05-04 11:36 | W.PN.HOSP.TC ---
Today's Communication/Plan
-
see A/P
Assessment / Plan
Assessment / Plan
64 M PMH CAD, HTN, HLD, Lung Ca (due to start chemo), COPD, hx Tobacco use, recent prolonged hospitalization due to influenza pneumonia, COPD exacerbation, discharged to SNF rehab 04/26/24; returned 04/29/24 due to acute chest pain with associated
shortness of breath improved with prn nitro.
A/P:
# CP relieved by SL NTG
# HX CAD with stents
# HX HLD
Currently CP free
No acute ischemic changed in EKG
Troponin consistently wnl x4
Prior ECHO: LVEF 55 to 60%. No major valvulopathy.
c/w [employer]IST ASA, Lipitor, Metoprolol
Off tele
Cardio eval appreciated
nitro prn chest pain
# Dyspnea, chronic and multifactorial
# HX COPD
# Chr tobacco use - stopped since last admission and at SNF
# RUL collapse from malignancy
NEG CT for acute PE
Adequate POx on RA
On oral prednisone slow taper course currently at 10 mg daily planned for 5 days, 05/06/24 last day for steroids
maintain on nebulizers/Bronchodilators.
Pulm eval appreciated
# HX Right upper lung undifferentiated carcinoma
# family history of lung cancer.
# Underweight likely d/t acute illness possible malignancy related
wt since improved, cont to monitor
Pathology and Genetic testing results reviewed - undifferentiated carcinoma
scheduled for treatment as outpatient. Follows w/ Dr. [facility] [place] [facility] and plan to get port-a-cath and eventual chemotherapy.
Oncology Eval appreciated
Ensure supplement TID as patient takes at home per [id number]
# Anemia of Chronic Disease
Iron studies noted
B12 WNL, can cont home b12 supplementation.
# Chronic back pain, chronic lumbago, aggravated by cough
already on steroids for pulm issues as above
Lidocaine patches 2 lower back, cont home gabapentin, tylenol prn
Lumbar MRI suggestive left hemisacrum metastasis
s/p IR left sacral mass biopsy 05/02
Follow path report (can be done outpt)
# Severe intermittent cramping BL hands, unclear etiology
Baclofen 5 mg TID
monitor and replete electrolytes as necessary
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
monitor and titrate pain regimen accordingly, currently on scheduled Gabapentin and prn Tylenol (would discuss with [id number] patient's advocate before considering additional pain medication)
# Vit D deficiency
supplement started, cont
# autism spectrum disorder
# Anxiety disorder
# OCD with cleaning
ELIZABEHT Joshi and Brother Gunnar are health care advocates
# Essential Hypertension on toprol XL
DVT prophylaxis-Lovenox SQ
CODE STATUS -Full code
Dispo: Skilled, not accepted by [facility]
Discussed with patient
d/w patient's [id number] Madelyn on the phone 05/03. She asks for dispo planning (to SNF) to only start on Friday 05/05 given pt's Medicaid would only become effective then.
Anticipated Discharge: Within 24 hours
Subjective/Interval History
-
Date of Service: May 04, 2024
Objective Data
-
Labs:
Laboratory Results
05/04/24 05/04/24
04:12 06:59
WBC 7.8
Hgb 9.5 L
Hct 30.3 L
Plt Count 351
Sodium Cancelled 132 L
Potassium Cancelled 4.3
Chloride Cancelled 100
Carbon Dioxide Cancelled 28
BUN Cancelled 11
Creatinine Cancelled 0.5 L
Glucose Cancelled 91
Calcium Cancelled 8.1 L
Vital Signs:
Vital Signs
Temp Pulse Resp BP Pulse Ox
36.2 C 94 12 120/71 94
05/04/24 07:30 05/04/24 07:30 05/04/24 07:30 05/04/24 07:30 05/04/24 07:30
I&O
05/03/24 05/04/24 05/05/24
06:59 06:59 06:59
Intake Total 1200 / 1200 1200 / 1200
Output Total 1350 / 1350 1450 / 1450
Balance -150 / -150 -250 / -250
Review of Systems
-
All other systems: Reviewed and negative
Physical Exam
-
General: Well Developed, Well Nourished, No Apparent Distress, Conversant, Appears Chronically Ill and Cachectic
HEENT: Normocephalic and Atraumatic
Respiratory: Clear to Auscultation and Non Labored Respirations; Negative Crackles or Accessory Resp Muscle Use
Cardiac: Regular Rhythm and S1/S2; Negative Murmur or Rub
GI: Soft, Nontender, Nondistended and Normal Bowel Sounds
Neuro: Awake, Alert and Oriented
Psych: Calm
Data Reviewed
-
Labs: Labs Reviewed by me
[2024-05-04 15:30] VITALS: BP 112/63
[2024-05-04] MEDS: LOVENOX 40 MG SC (17:16)
[2024-05-04] MEDS: ROBITUSSIN DM 10 ML PO (17:20)
[2024-05-04] MEDS: ELAVIL 50 MG PO (20:59)
[2024-05-04] MEDS: LIPITOR 80 MG PO (20:59)
[2024-05-04 21:22] LABS: Glucose - Point of Care 127 mg/dl (70-99)
[2024-05-04 23:00] VITALS: BP 122/75
[2024-05-05 06:00] VITALS: BMI 18.9
[2024-05-05 06:41] LABS: Hemoglobin 9.5 g/dL (13.0-18.0); Mean Corp Hgb Conc. 30.6 g/dL (33.0-37.0); Mean Corpuscular Hgb 24.9 pg (27.0-31.0); Mean Corpuscular Volume 81.2 fL (80.0-94.0); Mean Platelet Volume 9.2 fL (7.4-10.4); Platelet Count 364 10^3/uL (130-400); Red Blood Cell Count 3.82 10^6/uL (4.70-6.10); Red Cell Dist. Width 19.3 % (11.5-14.5); White Blood Cell Count 6.7 10^3/uL (4.8-10.8)
[2024-05-05 07:00] VITALS: BP 115/68
[2024-05-05] MEDS: SPIRIVA RESPIMAT 2.5 MCG 2 PUFF INH (07:12)
[2024-05-05] MEDS: STRIVERDI RESPIMAT 2 PUFF INH (07:12)
[2024-05-05] MEDS: VENTOLIN NEBULES 2.5 MG INH (07:18)
[2024-05-05 07:31] LABS: Blood Urea Nitrogen 13 mg/dl (9-20); Calcium 8.3 mg/dl (8.4-10.2); Carbon Dioxide 29 mmol/L (22-30); Chloride 97 mmol/L (98-107); Estimated Creatinine Clearance 86 ml/min; Glucose 81 mg/dl (70-99); Phosphorus 3.7 mg/dl (2.5-4.5); Potassium 4.3 mmol/L (3.5-5.1); Sodium 131 mmol/L (135-145); eGFR > 60.00
[2024-05-05 07:57] LABS: Magnesium 1.9 mg/dl (1.6-2.3)
[2024-05-05] MEDS: DELTASONE 10 MG PO (08:04)
[2024-05-05] MEDS: VITAMIN D3 (cholecalciferol) 25 MCG PO (08:04)
[2024-05-05] MEDS: PROTONIX 40 MG PO (08:04)
[2024-05-05] MEDS: ASPIR LOW (ENTERIC COATED) 81 MG PO (08:04)
[2024-05-05] MEDS: LIORESAL 5 MG PO ×2 (08:05→16:00)
[2024-05-05] MEDS: VITAMIN B-12 1000 MCG PO (08:06)
[2024-05-05] MEDS: LIDOCAINE 4% PATCH 2 PATCH TOPICAL (08:06)
[2024-05-05] MEDS: TOPROL XL 25 MG PO (08:08)
[2024-05-05] MEDS: NEURONTIN 400 MG PO ×2 (08:19→16:00)
[2024-05-05] MEDS: MIRALAX 17 GRAMS PO (12:07)
--- NOTE | 2024-05-05 12:30 | W.PN.UPDATE ---
Update Note
Progress Note Update
Full note to follow.
Pt with locally advanced lung cancer and large mass in sacrum entering neural foramen.
Adm with back pain that continues to be severe.
Plan was to transfer to SNF or acute rehab but movement currently limited by pain.
Also with post-obstructive atelectasis RUL.
Recommend transfer to [facility] for inpatient radiation to back.
Re-eval for acute rehab there once pain better controlled.
Case d/w Rad Onc at [facility] as well as hospitalist. Transfer to be initiated.
--- NOTE | 2024-05-05 12:57 | CM ---
Spoke with Oncology who stated that she is talking to attending about transferring patent to [facility] as patient can start his radiation and chemo, then hopefully start acute rehab if he meets criteria. Will await determination from [facility].
Plan: Case management will continue to follow and assist with discharge planning. Possible transfer from to [facility].
--- NOTE | 2024-05-05 14:05 | W.DCSUMMARY ---
Addendum entered and electronically signed by Arvin Molina DO 05/06/24 13:49:
Additional diagnoses during this admission includes mild hyponatremia.
Original Note:
Discharge Summary
Discharge Data
Date of Admission: 05/02/24
Date of Discharge: 05/05/24
-
Pending Results: No
Hospital Course
Mr. Stanley is a 64-year-old male with a medical history of recently diagnosed lung cancer (right upper lobe with postobstructive atelectasis, follows with [facility], due to start chemo soon), COPD, tobacco abuse, chronic back pain,
hypertension, CAD, autism spectrum disorder, and recent prolonged hospitalization due to influenza pneumonia with COPD exacerbation who returned to the hospital on 04/29/2024 from SNF due to acute chest pain and shortness of breath. His chest pain
improved with nitro. However, his pain appeared noncardiac in nature. His troponins were within normal limits x 4 and his EKG showed no acute ischemic changes. CT angiography showed no evidence of pulmonary embolism. His chest discomfort
improved with steroids and nebulizer treatments. During this hospitalization his chronic low back pain was aggravated by ongoing cough. Upon further evaluation with lumbosacral MRI he was found to have a suspicious large left sacral mass entering
the neural foramen. He underwent biopsy of left sacral mass on 05/02, pathology results are pending. His low back pain is significantly limiting his ability to ambulate and continue with physical therapy. Oncology has been following him while
inpatient and recommends transfer to [facility] for inpatient radiation to the sacral mass in hopes of alleviating some of his pain so he can better participate with physical therapy. He has been accepted for transfer to [facility]
by Dr. Arturo Alvarado MD. he remains on oral steroids for treatment of COPD exacerbation which we will continue for now due to its potential to help alleviate some of his symptoms due to invading sacral mass.
Of note, his as needed sublingual nitroglycerin seems to have been accidentally discontinued during recent admission. It should continue to be one of his listed home medications to take as needed for chest pain. He will need ongoing outpatient
cardiology evaluation and potential pharmacological nuclear stress test.
Gen-AAOx3, NAD
HEENT-NC, AT, anicteric, clear oral mm
Neck-supple
CV-reg, no M, +S1/S2
Lungs-decreased breath sounds right upper lobe, no wheezing
Abd-soft, NT, ND
Musculoskeletal-no edema, no deformity, lumbosacral TTP L>R
Skin-warm and dry
Neuro-grossly non-focal
Psych-calm, cooperative
Discharge Plan
-
Patient Disposition: Acute Care Hospital
Condition: Fair
Discharge Orders:
Discharge Patient (As Directed); Ordered 05/05/24
Ordered By: Arvin Molina
Discharge Date and Time
Print Language: SAMI
[2024-05-05 15:00] VITALS: BP 121/73
--- NOTE | 2024-05-05 16:51 | CM ---
[facility]
Nurse report# [phone].
[2024-05-05] MEDS: LOVENOX 40 MG SC (17:38)
[2024-05-05 19:40] VITALS: BP 120/70
--- NOTE | 2024-05-05 19:52 | W.PN.ONC2 ---
Today's Communication / Plan
-
Transfer to [place] for inpatient radiation to low back.
He also needs radiation to thoracic disease causing postobstructive atelectasis.
Case discussed with Dr. Paul, Dr. Guy.
Impression
Impression
Stage IIIb NSCLC (cT4cN2)
RUL tumor is associated with obstruction of the right upper lobe bronchus
Recent acute COPD exacerbation
Recent Influenza A infection
AOCD/malignancy. No EVA, b12 or folate deficiency
autism spectrum disorder -ELIZABETH Madelyn and Brother Ed are health care advocates
Lower back pain -MRI with marrow replacing lesion throughout the left upper hemisacrum with extension into the left-sided neural foramen
Plan
Plan
Patient with stage IIIb lung cancer, however, if MRI finding of left hemisacrum met then would be stage IV
He is status post biopsy of left hemisacral lesion.
Plan for dispo to nursing home or acute rehab is noted; however, patient will likely not be able to participate in rehab activities due to degree of pain.
Treatment has been delayed by bad case of the flu previously. Needs to start treatment as soon as possible.
Recommend transfer to [facility] where he can be treated with radiation as an inpatient. Once pain is under better control, suggest that he be assessed for acute rehab.
Goal is to get him as strong as possible, as soon as possible, so that he can proceed with chemotherapy and radiation.
He is noted to be PD-L1 0, without actionable mutation, so treatment will be limited to cytotoxic chemotherapy.
Subjective/Objective
Chief Complaint
Hematology/oncology follow-up of stage IIIb lung cancer, now with possible sacral metastasis
Subjective
Complains of pain limiting mobility
Vital Signs:
Vital Signs
Temp Pulse Resp BP Pulse Ox
98.5 F 103 16 121/73 95
05/05/24 15:00 05/05/24 15:00 05/05/24 15:00 05/05/24 15:00 05/05/24 15:00
Lab Results:
Laboratory Data
WBC 6.7 10^3/uL (4.8-10.8) 05/05/24 06:18
Hgb 9.5 g/dL (13.0-18.0) L 05/05/24 06:18
Plt Count 364 10^3/uL (130-400) 05/05/24 06:18
PT 13.2 Sec (11.4-14.6) 05/02/24 11:39
INR 0.97 05/02/24 11:39
eGFR > 60.00 05/05/24 06:18
Physical Exam
Awake, alert, chronically ill-appearing
--- NOTE | 2024-05-06 09:27 | PN.CDI ---
CDI
- -
CDI:
Physician Documentation Request
Admit Date: 05/02/24 07:57
Dear Doctor Jesse,
Patient admitted for lung cancer.
Laboratory Tests
04/30/24 05/01/24 05/02/24
19:55 06:31 06:37
Sodium 134 L 134 L 132 L
05/03/24 05/04/24 05/05/24
07:22 06:59 06:18
Sodium 131 L 132 L 131 L
Based on the above, could you clarify in the progress notes, the appropriate diagnosis, if significant, that supports the above abnormalities and additional evaluation, monitoring and/or treatment rendered:
Hyponatremia
Abnormal lab value insignificant
Other
Use of terms such as suspected, likely, concern for, or probable (associated with a specific diagnosis that is being evaluated, monitored, or treated as if it exists) are acceptable and can be coded in the inpatient setting, when documented at the
time of discharge.
Thank you,
Gloria Lora RN, BSN
CDI Specialist
Available via [employer] text
Please use your independent medical judgment in providing your response.
== END 2024-05-05 19:50 | disposition short-term general hospital (02) | DRG 988 ==
LOC: 3 WEST ACU 07:57
PROVIDERS: Internal Medicine; Radiology Vascular & Interventional Radiology; ADMITTING PHYSICIAN Internal Medicine; ATTENDING PHYSICIAN Internal Medicine; CONSULT PHYSICIAN Internal Medicine Cardiovascular Disease; CONSULT PHYSICIAN Internal Medicine Critical Care Medicine; CONSULT PHYSICIAN Physical Medicine & Rehabilitation; EMERGENCY PHYSICIAN Emergency Medicine; FAMILY PHYSICIAN Internal Medicine; OTHER PHYSICIAN Internal Medicine Hematology & Oncology
PROC: 0QB13ZX Excision of Sacrum, Percutaneous Approach, Diagnostic (ICD-10-PCS; 2024-05-02)
DX: C34.11 Malignant neoplasm of upper lobe, right bronchus or lung (principal); E87.1 Hypo-osmolality and hyponatremia; F84.0 Autistic disorder; J98.11 Atelectasis; Z68.1 Body mass index [BMI] 19.9 or less, adult; F17.200 Nicotine dependence, unspecified, uncomplicated; M54.16 Radiculopathy, lumbar region; R63.6 Underweight; Z85.118 Personal history of other malignant neoplasm of bronchus and lung; Z80.1 Family history of malignant neoplasm of trachea, bronchus and lung; D50.9 Iron deficiency anemia, unspecified; D75.839 Thrombocytosis, unspecified; F32.A Depression, unspecified; F41.9 Anxiety disorder, unspecified; F42.9 Obsessive-compulsive disorder, unspecified; I10 Essential (primary) hypertension; I25.10 Atherosclerotic heart disease of native coronary artery without angina pectoris; I25.5 Ischemic cardiomyopathy; N43.3 Hydrocele, unspecified; Z71.6 Tobacco abuse counseling; Z79.82 Long term (current) use of aspirin; Z79.899 Other long term (current) drug therapy; Z82.49 Family history of ischemic heart disease and other diseases of the circulatory system; Z86.73 Personal history of transient ischemic attack (TIA), and cerebral infarction without residual deficits
CPT/HCPCS: 88305; 20225; 71046; 71275; 72158; 77012; 80048; 80053; 82306; 82607; 82728; 82746; 82962; 83036; 83540; 83550; 83735; 84100; 84439; 84443; 84484; 85025; 85027; 85379; 85610; 87070; 88341; 88342; 93005; 94640; 96374; 96375; 97116; 97162; 97166; 97530; 97535; 99152; 99153; 99285; 99406; A9575; Q9967